=== PATIENT | male | born 1940 | race Caucasian/White ===

== ENCOUNTER 2016-10-20 21:21 | Emergency (ER) | payer MEDICARE, BC ==
--- NOTE | 2016-10-20 21:45 | EDM.PDOC ---
ED HPI GENERAL MEDICAL PROBLEM - General Chief Complaint: Abdominal Pain Stated Complaint: abd pain Time Seen by Provider: 10/20/16 21:30 Source of Information: Reports: Patient, Family, RN, RN Notes Reviewed History Limitations: Reports: No Limitations - History of Present Illness INITIAL COMMENTS - FREE TEXT/NARRATIVE: Patient presents the emergency room at [facility] with concerns of a worsening periumbilical hernia. According to the patient the hernia has been present for many many years. The patient states that the hernia is becoming more painful. The patient complains of nausea and vomiting. The patient states that he is not able to pass any gas. The patient has not had any trouble with bowel movements. No blood in BMs. The patient states his abdomen feels more distended. The patient has not had any fevers or chills. Duration: Colic, Waxing/Waning Location: Reports: Abdomen Quality: Reports: Pressure Severity: Mild Improves with: Reports: Rest Worsens with: Reports: Movement - Related Data Allergies Allergy/AdvReac Type Severity Reaction Status Date / Time No Known Allergies Allergy Verified 10/20/16 21:36 Home Meds: Home Meds Insulin Glarg,Human.Rec.Analog [Lantus] 47 units SQ BEDTIME 10/20/16 [History] Lisinopril/Hydrochlorothiazide [Zestoretic 10-12.5 mg Tablet] 1 each PO DAILY [History] Potassium Chloride [Klor-Con M20] 20 meq PO DAILY 10/20/16 [History] Tamsulosin HCl [Flomax] 0.4 mg PO BEDTIME 10/20/16 [History] amLODIPine [Norvasc] 5 mg PO DAILY 10/20/16 [History] atorvaSTATin [Lipitor] 1 tab PO BEDTIME 10/20/16 [History] glipiZIDE [Glipizide] 1 tab PO DAILY 10/20/16 [History] ED ROS GENERAL - Review of Systems Review Of Systems: See Below Constitutional: Denies: Fever, Chills, Weakness Respiratory: Denies: Shortness of Breath, Cough Cardiovascular: Denies: Chest Pain, Palpitations GI/Abdominal: Reports: Abdominal Pain, Nausea, Vomiting. Denies: Bloody Stool, Diarrhea, Flatus Skin: Reports: No Symptoms Neurological: Reports: No Symptoms ED EXAM, GI/ABD - Physical Exam Exam: See Below Exam Limited By: No Limitations General Appearance: Alert, No Apparent Distress, Obese Respiratory/Chest: No Respiratory Distress, Lungs Clear, Normal Breath Sounds Cardiovascular: Regular Rate, Rhythm GI/Abdominal Exam: Distended, Tender, Abnormal Bowel Sounds (Hypoactive), Hernia (Periumbilical) Neurological: Alert, Oriented Skin Exam: Warm, Dry, Intact, Normal Color, No Rash Course - Vital Signs Last Recorded V/S: Last Vital Signs Temp 37.1 C 10/20/16 23:32 Pulse 101 H 10/20/16 23:32 Resp 20 10/20/16 23:32 BP 155/81 H 10/20/16 23:32 Pulse Ox 94 L 10/20/16 23:32 - Orders/Labs/Meds Orders: Active Orders 24 hr Category Date Time Status Abdomen Pelvis w Cont [CT] Stat Exams 10/20/16 22:06 Taken Sodium Chloride 0.9% [Saline Flush] Med 10/20/16 22:06 Active 10 ml FLUSH ASDIRECTED PRN Peripheral IV Insertion Adult [OM.PC] Routine Oth 10/20/16 22:06 Ordered Medication Orders Sodium Chloride (Saline Flush) 10 ml FLUSH ASDIRECTED PRN PRN Reason: Keep Vein Open Labs: Laboratory Tests 10/20/16 10/20/16 10/20/16 Range/Units 21:51 21:51 21:57 WBC 12.8 H (4.0-10.0) x10^3/uL RBC 4.61 (4.5-6.0) x10^6/uL Hgb 13.0 L (14.0-18.0) g/dL Hct 40.0 (40.0-52.0) % MCV 86.8 (78.0-93.0) fL MCH 28.2 (26.0-32.0) pg MCHC 32.5 (32.0-36.0) g/dL RDW Coeff of Sylvia 14.2 (10.0-15.0) % Plt Count 319 (130-400) x10^3/uL Neut % (Auto) 89.6 H (50.0-80.0) % Lymph % (Auto) 5.2 L (25.0-50.0) % Bartholomew % (Auto) 5.1 (2.0-11.0) % Eos % (Auto) 0.0 (0.0-4.0) % Baso % (Auto) 0.1 L (0.2-1.2) % Sodium 144 (136-145) mmol/L Potassium 3.6 (3.5-5.1) mmol/L Chloride 106 (98-107) mmol/L Carbon Dioxide 30 (21-32) mmol/L BUN 21 H (7-18) mg/dL Creatinine 1.4 H (0.70-1.30) mg/dL Est Cr Clr Drug Dosing 44.11 mL/min Estimated GFR (MDRD) 49 Glucose 205 H (74-106) mg/dL Calcium 8.6 (8.5-10.1) mg/dL Corrected Calcium 9.64 (8.5-10.1) mg/dL Total Bilirubin 0.7 (0.2-1.0) mg/dL AST 12 L (15-37) U/L ALT 13 L (16-63) U/L Alkaline Phosphatase 93 (46-116) U/L Total Protein 7.4 (6.4-8.2) g/dL Albumin 2.7 L (3.4-5.0) g/dL Globulin 4.7 Albumin/Globulin Ratio 0.57 Urine Color Yellow (YELLOW) Urine Appearance Cloudy H (CLEAR) Urine pH 5.5 (5.0-8.0) Ur Specific [place] 1.025 Urine Protein 100 H (NEGATIVE) mg/dL Urine Glucose (UA) Negative (NEGATIVE) mg/dL Urine Ketones 15 H (NEGATIVE) mg/dL Urine Occult Blood Small H (NEGATIVE) Urine Nitrite Negative (NEGATIVE) Urine Bilirubin Small H (NEGATIVE) Urine Urobilinogen 0.2 (0.2) EU/dL Ur Leukocyte Esterase Moderate H (NEGATIVE) Urine RBC 5-10 H (NOT SEEN) /HPF Urine WBC 20-30 H (NOT SEEN) /HPF Ur Squamous Epith Cells Moderate H (NEGATIVE) /HPF Urine Bacteria Many H (NEGATIVE) /HPF Urine Mucus Many H (NEGATIVE) /LPF Meds: Medications Generic Name Dose Route Start Last Admin Trade Name Freq PRN Reason Stop Dose Admin Sodium Chloride 10 ml 10/20/16 22:06 Saline Flush FLUSH ASDIRECTED PRN Keep Vein Open Discontinued Medications Generic Name Dose Route Start Last Admin Trade Name Freq PRN Reason Stop Dose Admin Sodium Chloride 1,000 mls @ 999 mls/hr 10/20/16 22:08 10/20/16 22:09 Normal Saline IV 10/20/16 23:08 999 mls/hr ONETIME ONE Administration Metoclopramide HCl 10 mg 10/20/16 22:07 10/20/16 22:23 Reglan IVPUSH 10/20/16 22:08 10 mg ONETIME ONE Administration Ondansetron HCl 4 mg 10/20/16 22:07 10/20/16 22:25 Zofran IVPUSH 10/20/16 22:08 4 mg ONETIME ONE Administration - Radiology Interpretation Free Text/Narrative:: CT Abd/Pelvis: Ventral abdominal wall hernia containing a loop of small bowel. This appears to be causing proximal small bowel obstruction with a dilated loop extending into the hernia and a decompressed loop leading the hernia See scanned report in EMR CT Results Date: 10/20/16 CT Results Time: 23:23 Departure - Departure Time of Disposition: 23:58 Disposition: DC/Tfer to Acute Hospital 02 Condition: Good Clinical Impression: Ventral hernia with bowel obstruction, Kidney stone on right side Urinary tract infection Qualifiers: Urinary tract infection type: acute cystitis Hematuria presence: with hematuria Qualified Code(s): N30.01 - Acute cystitis with hematuria - Discharge Information Forms: Interfacility Transfer [facility] ED Communication - ED Communication Date/Time Date: 10/20/16 Time Called: 22:30 - Discussed Case With (1) Discussed Case With (1): Admitting Provider (Dr. Perez, Surgery [facility]) - Conversation Summary Admitting Provider Agreed to Patient's Admission: Yes Patient Aware of Amendments fo Care Plan: Yes Summary Comment: Patient will be transferred to [facility] ER in [place]. Dr. Perez is the accepting provider. Report given. Questions answered. Patient will be transferred via ALS ground. - Problem List Review Problem List Initiated/Reviewed/Updated: Yes - My Orders Last 24 Hours: My Active Orders 10/20/16 22:06 Abdomen Pelvis w Cont [CT] Stat Sodium Chloride 0.9% [Saline Flush] 10 ml FLUSH ASDIRECTED PRN Peripheral IV Insertion Adult [OM.PC] Routine - Assessment/Plan Last 24 Hours: My Active Orders 10/20/16 22:06 Abdomen Pelvis w Cont [CT] Stat Sodium Chloride 0.9% [Saline Flush] 10 ml FLUSH ASDIRECTED PRN Peripheral IV Insertion Adult [OM.PC] Routine
[2016-10-20] MEDS ORDERED: Sodium Chloride 0.9% 10 ML Syringe FLUSH PRN (22:06)
[2016-10-20] MEDS ORDERED: Ondansetron 4 MG/2 ML SDV IVPUSH ONE (22:07)
[2016-10-20] MEDS ORDERED: Metoclopramide 10 MG/2 ML SDV IVPUSH ONE (22:07)
[2016-10-20] MEDS ORDERED: Sodium Chloride 0.9% 1,000 ML IV ONE (22:08)
[2016-10-20 23:33] VITALS: BP 155/81
[2016-10-20] MEDS ORDERED: Ciprofloxacin in D5W 400 MG in Premix Bag 1 BAG IV ONE ×2 (23:55)
== END 2016-10-21 00:19 | disposition short-term general hospital (02) ==
LOC: VM.ED 21:21
DX: K43.6 Other and unspecified ventral hernia with obstruction, without gangrene (principal); N20.0 Calculus of kidney; N30.01 Acute cystitis with hematuria; Z79.84 Long term (current) use of oral hypoglycemic drugs; Z79.4 Long term (current) use of insulin
CPT/HCPCS: 36415; 74177; 80053; 81001; 85025; 96361; 96365; 96375; 99284; 99285; J0744; J2405; J2765; J7030

== ENCOUNTER 2017-08-06 15:36 | Emergency (ER) | payer MEDICARE, BC ==
[2017-08-06] MEDS ORDERED: Sodium Chloride 0.9% 10 ML Syringe FLUSH PRN (15:49)
[2017-08-06 16:45] LABS: CHLORIDE,CL 102 mmol/L (98-107); SODIUM,NA 139 mmol/L (136-145)
[2017-08-06 16:58] VITALS: BP 138/80
[2017-08-06] MEDS ORDERED: Potassium Chloride 10% 20 MEQ/15 ML Soln 15 ML UD Cup PO ONE (17:42)
--- NOTE | 2017-08-06 17:48 | EDM.PDOC ---
ED HPI GENERAL MEDICAL PROBLEM - General Chief Complaint: General Time Seen by Provider: 08/06/17 15:40 Source of Information: Reports: Patient History Limitations: Reports: No Limitations - History of Present Illness INITIAL COMMENTS - FREE TEXT/NARRATIVE: Pt. presents to ER with a history of syncope. He states that he passed out on saturday. He is currently being treated for a UTI. He states that he was having fever and chills on saturday prior to the syncopal episode. He states that he also has some anterior chest pain that is worse with deep breathing and movement. He states that he feels fatigued and somewhat lightheaded. Denies any shortness of breath. No abdominal pain, nausea, or vomiting. Location: Reports: Chest Quality: Reports: Ache, Burning - Related Data Allergies Allergy/AdvReac Type Severity Reaction Status Date / Time No Known Allergies Allergy Verified 08/06/17 16:47 Home Meds: Home Meds Insulin Glarg,Human.Rec.Analog [Lantus] 47 units SQ BEDTIME 10/20/16 [History] Lisinopril/Hydrochlorothiazide [Zestoretic 10-12.5 mg Tablet] 1 each PO DAILY [History] Potassium Chloride [Klor-Con M20] 20 meq PO DAILY 10/20/16 [History] Tamsulosin HCl [Flomax] 0.4 mg PO BEDTIME 10/20/16 [History] amLODIPine [Norvasc] 5 mg PO DAILY 10/20/16 [History] atorvaSTATin [Lipitor] 1 tab PO BEDTIME 10/20/16 [History] glipiZIDE [Glipizide] 1 tab PO DAILY 10/20/16 [History] Past Medical History Cardiovascular History: Reports: High Cholesterol, Hypertension Gastrointestinal History: Reports: Other (See Below) Other Gastrointestinal History: Umbilical hernia Genitourinary History: Reports: BPH, Other (See Below) Other Genitourinary History: urosepsis Neurological History: Reports: Neuropathy, Diabetic Endocrine/Metabolic History: Reports: Diabetes, Type II, Obesity/BMI 30+ Oncologic (Cancer) History: Reports: Prostate Social & Family History - Tobacco Use Smoking Status *Q: Never Smoker - Recreational Drug Use Recreational Drug Use: No Drug Use in Last 12 Months: No ED ROS GENERAL - Review of Systems Review Of Systems: See Below Constitutional: Reports: No Symptoms, Weakness HEENT: Reports: No Symptoms Respiratory: Reports: No Symptoms Cardiovascular: Reports: Chest Pain, Syncope Endocrine: Reports: No Symptoms GI/Abdominal: Reports: No Symptoms : Reports: No Symptoms Musculoskeletal: Reports: No Symptoms Skin: Reports: No Symptoms Neurological: Reports: No Symptoms Psychiatric: Reports: No Symptoms Hematologic/Lymphatic: Reports: No Symptoms Immunologic: Reports: No Symptoms ED EXAM, GENERAL - Physical Exam Exam: See Below Exam Limited By: No Limitations General Appearance: Alert, WD/WN, No Apparent Distress Eye Exam: Bilateral Eye: EOMI, Normal Fundi, Normal Inspection, PERRL Ears: Normal External Exam, Normal Canal, Hearing Grossly Normal, Normal TMs Nose: Normal Inspection, Normal Mucosa, No Blood Throat/Mouth: Normal Inspection, Normal Lips, Normal Teeth, Normal Gums, Normal Oropharynx, Normal Voice, No Airway Compromise Head: Atraumatic, Normocephalic Neck: Normal Inspection, Supple, Non-Tender, Full Range of Motion Respiratory/Chest: No Respiratory Distress, Lungs Clear, Normal Breath Sounds, No Accessory Muscle Use, Chest Non-Tender Cardiovascular: Normal Peripheral Pulses, Regular Rate, Rhythm, No Edema, No Gallop, No JVD, No Murmur, No Rub GI/Abdominal: Normal Bowel Sounds, Soft, Non-Tender, No Organomegaly, No Distention, No Abnormal Bruit, No Mass Back Exam: Normal Inspection, Full Range of Motion, NT Extremities: Normal Inspection, Normal Range of Motion, Non-Tender, Normal Capillary Refill, No Pedal Edema Neurological: Alert, Oriented, CN II-XII Intact, Normal Cognition, Normal Gait, Normal Reflexes, No Motor/Sensory Deficits EKG INTERPRETATION Rhythm: NSR (inferior and lateral ST changes, non-specific.) Course - Vital Signs Last Recorded V/S: Last Vital Signs Temp 37.4 C 08/06/17 15:40 Pulse 120 H 08/06/17 15:40 Resp 20 08/06/17 15:40 BP 138/80 08/06/17 15:40 Pulse Ox 95 08/06/17 15:40 - Orders/Labs/Meds Orders: Active Orders 24 hr Category Date Time Status EKG Documentation Completion [RC] STAT Care 08/06/17 15:50 Active Chest 2V [CR] Stat Exams 08/06/17 15:56 Taken CULTURE BLOOD [BC] Stat Lab 08/06/17 16:25 Received CULTURE BLOOD [BC] Stat Lab 08/06/17 16:30 Received Sodium Chloride 0.9% [Saline Flush] Med 08/06/17 15:49 Active 10 ml FLUSH ASDIRECTED PRN Blood Culture x2 Reflex Set [OM.PC] Stat Oth 08/06/17 15:55 Ordered Peripheral IV Insertion Adult [OM.PC] Routine Oth 08/06/17 15:50 Ordered Medication Orders Sodium Chloride (Saline Flush) 10 ml FLUSH ASDIRECTED PRN PRN Reason: Keep Vein Open Labs: Laboratory Tests 08/06/17 08/06/17 08/06/17 Range/Units 16:04 16:04 16:04 WBC 11.5 H (4.0-10.0) x10^3/uL RBC 4.43 L (4.5-6.0) x10^6/uL Hgb 12.1 L (14.0-18.0) g/dL Hct 37.6 L (40.0-52.0) % MCV 84.9 (78.0-93.0) fL MCH 27.3 (26.0-32.0) pg MCHC 32.2 (32.0-36.0) g/dL RDW Coeff of Sylvia 14.7 (10.0-15.0) % Plt Count 432 H D (130-400) x10^3/uL Neut % (Auto) 88.6 H (50.0-80.0) % Lymph % (Auto) 5.1 L (25.0-50.0) % [place] % (Auto) 6.0 (2.0-11.0) % Eos % (Auto) 0.2 (0.0-4.0) % Baso % (Auto) 0.1 L (0.2-1.2) % PT 14.2 H (9.6-11.4) SEC INR 1.4 L (2.0-3.5) Sodium 139 (136-145) mmol/L Potassium 2.6 L* (3.5-5.1) mmol/L Chloride 102 (98-107) mmol/L Carbon Dioxide 25 (21-32) mmol/L Anion Gap 14.6 (10-20) mmol/L BUN 42 H (7-18) mg/dL Creatinine 1.9 H (0.70-1.30) mg/dL Est Cr Clr Drug Dosing TNP Estimated GFR (MDRD) 35 Glucose 239 H (74-106) mg/dL Lactic Acid (0.4-2.0) mmol/L Calcium 8.4 L (8.5-10.1) mg/dL Corrected Calcium 9.92 (8.5-10.1) mg/dL Phosphorus 2.1 L (2.6-4.7) mg/dL Magnesium 2.4 (1.8-2.4) mg/dL Total Bilirubin 0.4 (0.2-1.0) mg/dL AST 36 (15-37) U/L ALT 33 (16-63) U/L Alkaline Phosphatase 108 (46-116) U/L Troponin I < 0.017 (<=0.056) ng/mL C-Reactive Protein 16.5 H (<=0.9) mg/dL Total Protein 7.3 (6.4-8.2) g/dL Albumin 2.1 L (3.4-5.0) g/dL Globulin 5.2 Albumin/Globulin Ratio 0.40 06/05/18 Range/Units 16:04 WBC (4.0-10.0) x10^3/uL RBC (4.5-6.0) x10^6/uL Hgb (14.0-18.0) g/dL Hct (40.0-52.0) % MCV (78.0-93.0) fL MCH (26.0-32.0) pg MCHC (32.0-36.0) g/dL RDW Coeff of Sylvia (10.0-15.0) % Plt Count (130-400) x10^3/uL Neut % (Auto) (50.0-80.0) % Lymph % (Auto) (25.0-50.0) % [place] % (Auto) (2.0-11.0) % Eos % (Auto) (0.0-4.0) % Baso % (Auto) (0.2-1.2) % PT (9.6-11.4) SEC INR (2.0-3.5) Sodium (136-145) mmol/L Potassium (3.5-5.1) mmol/L Chloride (98-107) mmol/L Carbon Dioxide (21-32) mmol/L Anion Gap (10-20) mmol/L BUN (7-18) mg/dL Creatinine (0.70-1.30) mg/dL Est Cr Clr Drug Dosing Estimated GFR (MDRD) Glucose (74-106) mg/dL Lactic Acid 1.7 (0.4-2.0) mmol/L Calcium (8.5-10.1) mg/dL Corrected Calcium (8.5-10.1) mg/dL Phosphorus (2.6-4.7) mg/dL Magnesium (1.8-2.4) mg/dL Total Bilirubin (0.2-1.0) mg/dL AST (15-37) U/L ALT (16-63) U/L Alkaline Phosphatase (46-116) U/L Troponin I (<=0.056) ng/mL C-Reactive Protein (<=0.9) mg/dL Total Protein (6.4-8.2) g/dL Albumin (3.4-5.0) g/dL Globulin Albumin/Globulin Ratio Meds: Medications Generic Name Dose Route Start Last Admin Trade Name Freq PRN Reason Stop Dose Admin Sodium Chloride 10 ml 08/06/17 15:49 Saline Flush FLUSH ASDIRECTED PRN Keep Vein Open Discontinued Medications Generic Name Dose Route Start Last Admin Trade Name Freq PRN Reason Stop Dose Admin Potassium Chloride 20 meq 08/06/17 17:42 Potassium Chloride Solution PO 08/06/17 17:43 ONETIME ONE - Radiology Interpretation Free Text/Narrative:: CXR negative Departure - Departure Time of Disposition: 17:49 Disposition: Home, Self-Care 01 Clinical Impression: Hypokalemia, Dehydration, Abnormal EKG - Discharge Information Instructions: Hypokalemia, Dehydration, Adult, [id number], Syncope Referrals: Dev Chacon PA-C [Primary Care Provider] - Forms: ED Department Discharge Additional Instructions: You've been advised to stay in the hospital, as you have numerous abnormal findings, including a critically low potassium and EKG changes. If you decide to stay or return, you are welcome. Just come to the ER or call 911. Take your potassium like you are supposed to. It is very low. This can be life- threatening. Follow-up in clinic in 7-10 days. - My Orders Last 24 Hours: My Active Orders 08/06/17 15:49 Sodium Chloride 0.9% [Saline Flush] 10 ml FLUSH ASDIRECTED PRN 08/06/17 15:50 EKG Documentation Completion [RC] STAT Peripheral IV Insertion Adult [OM.PC] Routine 08/06/17 15:55 Blood Culture x2 Reflex Set [OM.PC] Stat 08/06/17 15:56 Chest 2V [CR] Stat 08/06/17 16:25 CULTURE BLOOD [BC] Stat 08/06/17 16:30 CULTURE BLOOD [BC] Stat - Assessment/Plan Last 24 Hours: My Active Orders 08/06/17 15:49 Sodium Chloride 0.9% [Saline Flush] 10 ml FLUSH ASDIRECTED PRN 08/06/17 15:50 EKG Documentation Completion [RC] STAT Peripheral IV Insertion Adult [OM.PC] Routine 08/06/17 15:55 Blood Culture x2 Reflex Set [OM.PC] Stat 08/06/17 15:56 Chest 2V [CR] Stat 08/06/17 16:25 CULTURE BLOOD [BC] Stat 08/06/17 16:30 CULTURE BLOOD [BC] Stat
== END 2017-08-06 18:00 | disposition home or self-care (01) ==
LOC: VM.ED 15:36
DX: E87.6 Hypokalemia (principal); E86.0 Dehydration; R94.31 Abnormal electrocardiogram [ECG] [EKG]; E11.9 Type 2 diabetes mellitus without complications; E66.9 Obesity, unspecified; I10 Essential (primary) hypertension; Z79.899 Other long term (current) drug therapy
CPT/HCPCS: 36415; 71046; 80053; 83605; 83735; 84100; 84484; 85025; 85610; 86140; 87040; 87077; 93005; 99284-GF; 99285; A9270-GY

== ENCOUNTER 2018-03-05 13:57 | Inpatient (IN) | payer BC, MEDICARE ==
--- NOTE | 2018-03-05 15:06 | PCM.HP ---
H&P History of Present Illness - General Date of Service: 03/05/18 Admit Problem/Dx: Admission Diagnosis/Problem Admission Diagnosis/Problem Abscess of scrotum Source of Information: Patient History Limitations: Reports: No Limitations - History of Present Illness Initial Comments - Free Text/Narative: Mr. Banda is a 77 yo male who returns to swing bed after an admission in [place] for treatment of a scrotal abscess. He had been on swing bed in [place] for many months (please see notes from that stay for details). End of last week, he developed redness and swelling of the left side of his scrotum. The options were discussed and he opted for transfer to [place] for further evaluation. He underwent I&D and was treated with antibiotics. He subsequently improved and it was felt he was medically stable for dismissal. Case management worked with he and his family on options, and he elected to return to [facility] swing bed for further cares. Upon arrival to the floor, he denies any concerns. He is not having any pain. He denies any fever or chills. His appetite is not great but he has had no nausea or vomiting. His stay in [place] was otherwise uneventful. - Related Data Allergies/Adverse Reactions: Allergies Allergy/AdvReac Type Severity Reaction Status Date / Time No Known Allergies Allergy Verified 03/05/18 14:58 Home Medications: Home Meds Delmi Meehan-Db/K Ph,MB-DB [Phos-NaK Powder] 1 pack PO TID 11/26/17 [History] Sennosides/Docusate Sodium [Senna-Docusate Sodium Tablet] 1 tab PO QID PRN 11/26 [History] Sertraline [Zoloft] 25 mg PO DAILY 11/26/17 [History] Aspirin 81 mg PO WITHBREAKFAST tab.chew 02/28/18 [Rx] Nystatin [Nystatin Crm] 0 gm TOP BID PRN tube 02/28/18 [Rx] Simethicone 80 mg PO TID tab.chew 02/28/18 [Rx] Acetaminophen [Tylenol Extra Strength] 500 mg PO Q6H PRN 03/05/18 [History] Amoxicillin/Potassium Clav [Augmentin 875-125 Tablet] 1 tab PO BID 03/05/18 [ History] Enoxaparin [Lovenox] 40 mg SUBCUT DAILY 03/05/18 [History] Oxybutynin 5 mg PO TID PRN 03/05/18 [History] oxyCODONE 5 mg PO Q4H PRN 03/05/18 [History] Past Medical History HEENT History: Reports: Hard of Hearing Cardiovascular History: Reports: High Cholesterol, Hypertension Respiratory History: Reports: None Gastrointestinal History: Reports: Other (See Below) Other Gastrointestinal History: Umbilical hernia. pseudomembranous colitis Genitourinary History: Reports: BPH, Diabetic Nephropathy, Other (See Below) Other Genitourinary History: urosepsis. neoplasm of prostate Musculoskeletal History: Reports: None Neurological History: Reports: CVA, Neuropathy, Diabetic Psychiatric History: Reports: Depression Endocrine/Metabolic History: Reports: Diabetes, Type II, Obesity/BMI 30+ Hematologic History: Reports: None Immunologic History: Reports: None Oncologic (Cancer) History: Reports: Colon, Prostate Dermatologic History: Reports: None - Infectious Disease History Infectious Disease History: Reports: None - Past Surgical History GI Surgical History: Reports: Colonoscopy, Colostomy, Hernia Repair/Other, Other (See Below) Other GI Surgeries/Procedures: rectal procedure Male Surgical History: Reports: Other (See Below) Other Male Surgeries/Procedures: cystoscopy with direct vision urethrotomy. laparotomy. prostate surgery Social & Family History - Family History Endocrine/Metabolic: Reports: Diabetes, type II Oncologic: Reports: Prostate - Tobacco Use Smoking Status *Q: Never Smoker - Caffeine Use Caffeine Use: Reports: Soda - Alcohol Use Alcohol Use in Last Twelve Months: No - Recreational Drug Use Recreational Drug Use: No - Living Situation & Occupation Living situation: Reports: , with Significant Other Occupation: Retired ([employer]) H&P Review of Systems - Review of Systems: Review Of Systems: See Below General: Reports: No Symptoms HEENT: Reports: No Symptoms Pulmonary: Reports: No Symptoms Cardiovascular: Reports: No Symptoms Gastrointestinal: Reports: No Symptoms Genitourinary: Reports: No Symptoms Musculoskeletal: Reports: No Symptoms Skin: Reports: No Symptoms Psychiatric: Reports: No Symptoms Neurological: Reports: No Symptoms Exam - Exam Exam: See Below - Vital Signs Vital Signs: Last Vital Signs Temp 36.3 C 03/05/18 14:06 Pulse 92 03/05/18 14:06 Resp 18 03/05/18 14:06 BP 144/90 H 03/05/18 14:06 Pulse Ox 98 03/05/18 14:06 - Exam General: Alert, Oriented, Cooperative HEENT: Conjunctiva Clear, Mucosa Moist & [place], Posterior Pharynx Clear, Pupils Equal, Pupils Reactive Neck: Supple, Trachea Midline Lungs: Clear to Auscultation, Normal Respiratory Effort Cardiovascular: Regular Rate, Regular Rhythm, Normal S1, Normal S2 GI/Abdominal Exam: Normal Bowel Sounds, Soft, Non-Tender, No Organomegaly, No Distention, No Mass Extremities: Non-Tender, No Pedal Edema, Normal Capillary Refill Peripheral Pulses: 2+: Radial (L), Radial (R) Skin: Warm, Dry, Intact *Q Meaningful Use (ADM) - VTE *Q VTE Anticoagulation Contraindications: Med/TX Not Indicated/Need - Problem List (1) Abscess of scrotum SNOMED Code(s): 60931908 ICD Code: N49.2 - INFLAMMATORY DISORDERS OF SCROTUM Status: Acute Current Visit: No (2) Wound, open, scrotum or testes SNOMED Code(s): 795794131 ICD Code: S31.30XA - UNSPECIFIED OPEN WOUND OF SCROTUM AND TESTES, INIT ENCNTR Status: Acute Current Visit: No (3) Bladder spasm Status: Acute Current Visit: No (4) Colon cancer SNOMED Code(s): 642526653 ICD Code: C18.9 - MALIGNANT NEOPLASM OF COLON, UNSPECIFIED Status: Acute Current Visit: No Qualifiers: Colon location: unspecified part of colon Qualified Code(s): C18.9 - Malignant neoplasm of colon, unspecified (5) Fistula SNOMED Code(s): 415149131 ICD Code: L98.8 - OTH DISRD OF THE SKIN AND SUBCUTANEOUS TISSUE Status: Acute Current Visit: No (6) Depressed mood SNOMED Code(s): 499768471 ICD Code: F32.9 - MAJOR DEPRESSIVE DISORDER, SINGLE EPISODE, UNSPECIFIED Status: Chronic Current Visit: No (7) Cerebrovascular accident (CVA) SNOMED Code(s): 641898657 ICD Code: I63.9 - CEREBRAL INFARCTION, UNSPECIFIED Status: Chronic Current Visit: No Qualifiers: CVA mechanism: unspecified Qualified Code(s): I63.9 - Cerebral infarction, unspecified (8) Diabetes SNOMED Code(s): 79348812 ICD Code: E11.9 - TYPE 2 DIABETES MELLITUS WITHOUT COMPLICATIONS Status: Chronic Current Visit: No Qualifiers: Diabetes mellitus type: type 2 Diabetes mellitus long term care pharmacist insulin use: without residential use Diabetes mellitus complication status: with neurologic complications Diabetes mellitus complication detail: with polyneuropathy Qualified Code(s): E11.42 - Type 2 diabetes mellitus with diabetic polyneuropathy (9) Hyperlipidemia SNOMED Code(s): 29048015 ICD Code: E78.5 - HYPERLIPIDEMIA, UNSPECIFIED Status: Chronic Current Visit: No Qualifiers: Hyperlipidemia type: unspecified Qualified Code(s): E78.5 - Hyperlipidemia , unspecified (10) Hypertension SNOMED Code(s): 69960976 ICD Code: I10 - ESSENTIAL (PRIMARY) HYPERTENSION Status: Chronic Current Visit: No Qualifiers: Hypertension type: essential hypertension Qualified Code(s): I10 - Essential (primary) hypertension Problem List Initiated/Reviewed/Updated: Yes Orders Last 24hrs: Active Orders 24 hr Category Date Time Status Patient Status [ADT] Routine ADT 03/05/18 14:48 Ordered Notify Provider Vital Signs [RC] ASDIRECTED Care 03/05/18 14:50 Ordered Oxygen Therapy [RC] PRN Care 03/05/18 14:48 Ordered Up With Assistance [RC] ASDIRECTED Care 03/05/18 14:48 Ordered VTE/DVT Education [RC] PER UNIT ROUTINE Care 03/05/18 14:48 Ordered Vital Signs [RC] PER UNIT ROUTINE Care 03/05/18 14:48 Ordered Regular Diet [DIET] Diet 03/05/18 Dinner Ordered CULTURE MRSA SURVEY [RM] Routine Lab 03/05/18 14:05 Ordered Anticoagulation Contraindications VTE [AST] Per Unit Oth 03/05/18 14:48 Ordered Routine Resuscitation Status Routine Resus Stat 03/05/18 14:48 Ordered Assessment/Plan Comment:: 77 yo male who returns to swing bed for wound cares after a hospitalization in [place] for I&D of a recurrent scrotal abscess. #1 Scrotal Abscess #2 Wound of Scrotum - Wound cares BID. - He will complete the course of augmentin after another 12 days. #3 Bladder Spasm - Continue oxybutynin PRN. #4 Colon Cancer #5 Fistula - Although he has been back and forth at times, overall he has declined to do any treatments for his cancer. - He is welcome to see colorectal surgery if he desires once this infection has cleared up. #6 Depression - Overall stable. - Continue sertraline. #7 CVA #8 Diabetes #9 Hypertension #10 Hyperlipidemia - Continue ASA. - All other medications discontinued once he transitioned to a palliative care approach. Vitals and labs have been stable. No changes to his medications. He will be admitted to [facility] bed - ideally he would return home for end of life but this is not currently feasible with the wound cares he is requiring. Will continue to monitor over time. Resume all medications he was on prior to going to [place] and will add Augmentin for 12 days per discharge paperwork. He is DNR/ DNI - discussed on admission. Continue lovenox for VTE prophylaxis as per orders from [place] - will reassess in 2 weeks.
[2018-03-05] MEDS ORDERED: oxyCODONE 5 MG Tab PO PRN (16:55)
[2018-03-05] MEDS ORDERED: Nystatin Crm 30 GM Tube TOP PRN (16:55)
[2018-03-05] MEDS ORDERED: Oxybutynin 5 MG Tab PO PRN (16:55)
[2018-03-05] MEDS: Acetaminophen 500 MG Tab PO PRN (19:14)
[2018-03-05] MEDS ORDERED: Enoxaparin 40 MG/0.4 ML Syringe SUBCUT SCH (20:00)
[2018-03-05] MEDS: Simethicone 80 MG Tab.Chew PO SCH (20:03)
[2018-03-05] MEDS: Amoxicillin/Clavulanate K 875-125 MG Tab PO SCH (20:03)
[2018-03-05] MEDS: Potassium Phosphate,Mb-Db/Sodium Phosphate,Mb-Db Packet PO SCH (20:03)
[2018-03-06] MEDS ORDERED: Aspirin 81 MG Tab.Chew PO SCH (08:00)
[2018-03-06] MEDS ORDERED: Enoxaparin 40 MG/0.4 ML Syringe SUBCUT SCH (08:00)
[2018-03-06] MEDS: Amoxicillin/Clavulanate K 875-125 MG Tab PO SCH ×2 (08:54→19:29)
[2018-03-06] MEDS: Sertraline 25 MG Tab PO SCH (08:54)
[2018-03-06] MEDS: Simethicone 80 MG Tab.Chew PO SCH ×3 (08:54→19:30)
[2018-03-06] MEDS: Potassium Phosphate,Mb-Db/Sodium Phosphate,Mb-Db Packet PO SCH ×3 (08:54→19:29)
[2018-03-06] MEDS: Acetaminophen 500 MG Tab PO PRN (19:29)
[2018-03-06] MEDS: Enoxaparin 40 MG/0.4 ML Syringe SUBCUT SCH (19:30)
[2018-03-07] MEDS: Simethicone 80 MG Tab.Chew PO SCH ×3 (08:25→20:04)
[2018-03-07] MEDS: Sertraline 25 MG Tab PO SCH (08:25)
[2018-03-07] MEDS: Potassium Phosphate,Mb-Db/Sodium Phosphate,Mb-Db Packet PO SCH ×3 (08:25→20:04)
[2018-03-07] MEDS: Amoxicillin/Clavulanate K 875-125 MG Tab PO SCH ×2 (08:25→20:04)
[2018-03-07] MEDS: Aspirin 81 MG Tab.EC PO SCH (08:25)
[2018-03-07] MEDS: Acetaminophen 500 MG Tab PO PRN (20:04)
[2018-03-07] MEDS: Enoxaparin 40 MG/0.4 ML Syringe SUBCUT SCH (20:05)
[2018-03-08] MEDS: Potassium Phosphate,Mb-Db/Sodium Phosphate,Mb-Db Packet PO SCH ×3 (09:15→21:01)
[2018-03-08] MEDS: Sertraline 25 MG Tab PO SCH (09:16)
[2018-03-08] MEDS: Amoxicillin/Clavulanate K 875-125 MG Tab PO SCH ×2 (09:16→21:01)
[2018-03-08] MEDS: Aspirin 81 MG Tab.EC PO SCH (09:16)
[2018-03-08] MEDS: Simethicone 80 MG Tab.Chew PO SCH ×3 (09:16→21:01)
[2018-03-08] MEDS: Enoxaparin 40 MG/0.4 ML Syringe SUBCUT SCH (21:00)
[2018-03-08] MEDS: Acetaminophen 500 MG Tab PO PRN (21:01)
[2018-03-09] MEDS: Aspirin 81 MG Tab.EC PO SCH (09:26)
[2018-03-09] MEDS: Amoxicillin/Clavulanate K 875-125 MG Tab PO SCH ×2 (09:26→19:25)
[2018-03-09] MEDS: Sertraline 25 MG Tab PO SCH (09:26)
[2018-03-09] MEDS: Potassium Phosphate,Mb-Db/Sodium Phosphate,Mb-Db Packet PO SCH ×3 (09:26→19:25)
[2018-03-09] MEDS: Simethicone 80 MG Tab.Chew PO SCH ×3 (09:26→19:25)
[2018-03-09] MEDS: Acetaminophen 500 MG Tab PO PRN (19:24)
[2018-03-09] MEDS: Enoxaparin 40 MG/0.4 ML Syringe SUBCUT SCH (19:25)
[2018-03-10] MEDS: Potassium Phosphate,Mb-Db/Sodium Phosphate,Mb-Db Packet PO SCH ×3 (08:03→20:11)
[2018-03-10] MEDS: Simethicone 80 MG Tab.Chew PO SCH ×3 (08:03→20:11)
[2018-03-10] MEDS: Aspirin 81 MG Tab.EC PO SCH (08:03)
[2018-03-10] MEDS: Sertraline 25 MG Tab PO SCH (08:03)
[2018-03-10] MEDS: Amoxicillin/Clavulanate K 875-125 MG Tab PO SCH ×2 (08:03→20:11)
--- NOTE | 2018-03-10 12:17 | PCM.SN ---
- Free Text/Narrative Note: Asked by nursing to look at scrotal wound due to increase in swelling and redness over the weekend. Erythema is very faint; does have some swelling in the left scrotum but no induration or obvious fluctuance. Patient remains on antibiotics. Will continue current cares and monitor closely.
[2018-03-10] MEDS: Enoxaparin 40 MG/0.4 ML Syringe SUBCUT SCH (20:12)
[2018-03-11] MEDS: Simethicone 80 MG Tab.Chew PO SCH ×3 (08:42→20:30)
[2018-03-11] MEDS: Sertraline 25 MG Tab PO SCH (08:42)
[2018-03-11] MEDS: Potassium Phosphate,Mb-Db/Sodium Phosphate,Mb-Db Packet PO SCH ×3 (08:42→20:30)
[2018-03-11] MEDS: Amoxicillin/Clavulanate K 875-125 MG Tab PO SCH (08:42)
[2018-03-11] MEDS: Aspirin 81 MG Tab.EC PO SCH (08:42)
[2018-03-11] MEDS: CLAVULANATE PO SCH (20:15)
[2018-03-11] MEDS: AMOXICILLIN PO SCH (20:15)
[2018-03-11] MEDS: ENOXAPARIN 40 MG/0.4 ML SUBCUT SCH (20:17)
[2018-03-12] MEDS: Aspirin 81 MG Tab.EC PO SCH (10:14)
[2018-03-12] MEDS: SERTRALINE 25 MG PO SCH (10:14)
[2018-03-12] MEDS: Simethicone 80 MG Tab.Chew PO SCH ×3 (10:14→21:23)
[2018-03-12] MEDS: Potassium Phosphate,Mb-Db/Sodium Phosphate,Mb-Db Packet PO SCH ×3 (10:14→21:23)
[2018-03-12] MEDS: CLAVULANATE PO SCH ×2 (10:15→21:24)
[2018-03-12] MEDS: AMOXICILLIN PO SCH ×2 (10:15→21:24)
[2018-03-12] MEDS: ENOXAPARIN 40 MG/0.4 ML SUBCUT SCH (21:23)
[2018-03-13] MEDS: Potassium Phosphate,Mb-Db/Sodium Phosphate,Mb-Db Packet PO SCH ×3 (09:45→20:13)
[2018-03-13] MEDS: Simethicone 80 MG Tab.Chew PO SCH ×3 (09:45→20:13)
[2018-03-13] MEDS: Aspirin 81 MG Tab.EC PO SCH (09:45)
[2018-03-13] MEDS: SERTRALINE 25 MG PO SCH (09:46)
[2018-03-13] MEDS: CLAVULANATE PO SCH ×2 (09:46→20:15)
[2018-03-13] MEDS: AMOXICILLIN PO SCH ×2 (09:46→20:15)
[2018-03-13] MEDS: ENOXAPARIN 40 MG/0.4 ML SUBCUT SCH (20:14)
[2018-03-14] MEDS: Simethicone 80 MG Tab.Chew PO SCH ×3 (08:29→20:19)
[2018-03-14] MEDS: Aspirin 81 MG Tab.EC PO SCH (08:29)
[2018-03-14] MEDS: Potassium Phosphate,Mb-Db/Sodium Phosphate,Mb-Db Packet PO SCH ×3 (08:29→20:19)
[2018-03-14] MEDS: SERTRALINE 25 MG PO SCH (08:30)
[2018-03-14] MEDS: CLAVULANATE PO SCH ×2 (08:30→20:17)
[2018-03-14] MEDS: AMOXICILLIN PO SCH ×2 (08:30→20:17)
[2018-03-14] MEDS: ENOXAPARIN 40 MG/0.4 ML SUBCUT SCH (20:19)
[2018-03-15] MEDS: Simethicone 80 MG Tab.Chew PO SCH ×3 (08:30→20:23)
[2018-03-15] MEDS: Aspirin 81 MG Tab.EC PO SCH (08:30)
[2018-03-15] MEDS: Potassium Phosphate,Mb-Db/Sodium Phosphate,Mb-Db Packet PO SCH ×3 (08:30→20:23)
[2018-03-15] MEDS: CLAVULANATE PO SCH ×2 (08:31→20:22)
[2018-03-15] MEDS: AMOXICILLIN PO SCH ×2 (08:31→20:22)
[2018-03-15] MEDS: SERTRALINE 25 MG PO SCH (08:31)
[2018-03-15] MEDS: ENOXAPARIN 40 MG/0.4 ML SUBCUT SCH (20:22)
[2018-03-15] MEDS: Acetaminophen 500 MG Tab PO PRN (20:23)
[2018-03-16] MEDS: Potassium Phosphate,Mb-Db/Sodium Phosphate,Mb-Db Packet PO SCH ×3 (09:20→20:06)
[2018-03-16] MEDS: AMOXICILLIN PO SCH ×2 (09:20→20:05)
[2018-03-16] MEDS: CLAVULANATE PO SCH ×2 (09:20→20:05)
[2018-03-16] MEDS: Simethicone 80 MG Tab.Chew PO SCH ×3 (09:21→20:06)
[2018-03-16] MEDS: SERTRALINE 25 MG PO SCH (09:21)
[2018-03-16] MEDS: Aspirin 81 MG Tab.EC PO SCH (09:21)
[2018-03-16] MEDS: Acetaminophen 500 MG Tab PO PRN (20:06)
[2018-03-16] MEDS: ENOXAPARIN 40 MG/0.4 ML SUBCUT SCH (20:07)
[2018-03-17] MEDS: Potassium Phosphate,Mb-Db/Sodium Phosphate,Mb-Db Packet PO SCH ×3 (08:43→20:00)
[2018-03-17] MEDS: SERTRALINE 25 MG PO SCH (08:43)
[2018-03-17] MEDS: Aspirin 81 MG Tab.EC PO SCH (08:43)
[2018-03-17] MEDS: Acetaminophen 500 MG Tab PO PRN (08:43)
[2018-03-17] MEDS: Simethicone 80 MG Tab.Chew PO SCH ×3 (08:43→19:59)
[2018-03-17] MEDS: ENOXAPARIN 40 MG/0.4 ML SUBCUT SCH (19:59)
[2018-03-18] MEDS: Acetaminophen 500 MG Tab PO PRN (08:22)
[2018-03-18] MEDS: Aspirin 81 MG Tab.EC PO SCH (08:22)
[2018-03-18] MEDS: Potassium Phosphate,Mb-Db/Sodium Phosphate,Mb-Db Packet PO SCH ×3 (08:22→19:59)
[2018-03-18] MEDS: Simethicone 80 MG Tab.Chew PO SCH ×3 (08:22→19:59)
[2018-03-18] MEDS: SERTRALINE 25 MG PO SCH (08:29)
[2018-03-18] MEDS: ENOXAPARIN 40 MG/0.4 ML SUBCUT SCH (19:59)
[2018-03-19] MEDS: Simethicone 80 MG Tab.Chew PO SCH ×3 (08:27→20:23)
[2018-03-19] MEDS: Potassium Phosphate,Mb-Db/Sodium Phosphate,Mb-Db Packet PO SCH ×3 (08:27→20:23)
[2018-03-19] MEDS: SERTRALINE 25 MG PO SCH (08:27)
[2018-03-19] MEDS: Aspirin 81 MG Tab.EC PO SCH (08:27)
[2018-03-19] MEDS: Acetaminophen 500 MG Tab PO PRN (20:23)
[2018-03-19] MEDS: ENOXAPARIN 40 MG/0.4 ML SUBCUT SCH (21:54)
[2018-03-20] MEDS: Aspirin 81 MG Tab.EC PO SCH (09:43)
[2018-03-20] MEDS: SERTRALINE 25 MG PO SCH (09:43)
[2018-03-20] MEDS: Potassium Phosphate,Mb-Db/Sodium Phosphate,Mb-Db Packet PO SCH ×3 (09:43→19:47)
[2018-03-20] MEDS: Simethicone 80 MG Tab.Chew PO SCH ×3 (09:44→19:47)
[2018-03-21] MEDS: Aspirin 81 MG Tab.EC PO SCH (11:12)
[2018-03-21] MEDS: Simethicone 80 MG Tab.Chew PO SCH ×3 (11:12→20:19)
[2018-03-21] MEDS: Potassium Phosphate,Mb-Db/Sodium Phosphate,Mb-Db Packet PO SCH ×3 (11:12→20:19)
[2018-03-21] MEDS: SERTRALINE 25 MG PO SCH (11:13)
[2018-03-21] MEDS: Acetaminophen 500 MG Tab PO PRN (20:18)
[2018-03-22] MEDS: Simethicone 80 MG Tab.Chew PO SCH ×4 (11:09→19:49)
[2018-03-22] MEDS: Potassium Phosphate,Mb-Db/Sodium Phosphate,Mb-Db Packet PO SCH ×4 (11:09→19:49)
[2018-03-22] MEDS: Aspirin 81 MG Tab.EC PO SCH (11:09)
[2018-03-22] MEDS: SERTRALINE 25 MG PO SCH (11:13)
[2018-03-22] MEDS: Acetaminophen 500 MG Tab PO PRN (19:49)
[2018-03-23] MEDS: Aspirin 81 MG Tab.EC PO SCH (09:43)
[2018-03-23] MEDS: SERTRALINE 25 MG PO SCH (09:43)
[2018-03-23] MEDS: Simethicone 80 MG Tab.Chew PO SCH ×3 (09:43→19:22)
[2018-03-23] MEDS: Acetaminophen 500 MG Tab PO PRN ×2 (09:44→19:22)
[2018-03-23] MEDS: Potassium Phosphate,Mb-Db/Sodium Phosphate,Mb-Db Packet PO SCH ×3 (09:44→19:22)
[2018-03-24] MEDS: Simethicone 80 MG Tab.Chew PO SCH ×3 (09:13→20:19)
[2018-03-24] MEDS: SERTRALINE 25 MG PO SCH (09:13)
[2018-03-24] MEDS: Potassium Phosphate,Mb-Db/Sodium Phosphate,Mb-Db Packet PO SCH ×3 (09:13→20:19)
[2018-03-24] MEDS: Aspirin 81 MG Tab.EC PO SCH (09:13)
[2018-03-24] MEDS: Ondansetron 4 MG Tab.DIS PO PRN (15:36)
--- NOTE | 2018-03-24 17:07 | PCM.SN ---
- Free Text/Narrative Note: Patient's approached nursing wondering about doing labwork on patient today. He has been more weak and confused the past 3-4 days. Urine is also dark in color. She wonders about the possibility of sepsis. Patient has also been vomiting today but has had no abdominal pain. No fever. Patient has repeatedly stated that he did not want to do labwork anymore but rather would just start antibiotics if evidence of an infection. He states this is the way he still feels now. Suspect symptoms are more likely related to progression of his malignancy rather than any infection in the absence of fever and the fact that his scrotal wounds are improving. Recommend holding off on anything further tonight - will reassess in the am and go from there.
--- NOTE | 2018-03-25 09:13 | PCM.SN ---
- Free Text/Narrative Note: With dressing change last night, a pocket did open up and drain more purulent material. Patient otherwise had an uneventful night. Nursing reports that he acts much more alert and interactive when his family is not present. Will increased drainage last night and weakness over the past few days, will do 5 days of cefdinir to cover for any developing infection.
[2018-03-25] MEDS: Potassium Phosphate,Mb-Db/Sodium Phosphate,Mb-Db Packet PO SCH ×3 (09:19→20:16)
[2018-03-25] MEDS: Aspirin 81 MG Tab.EC PO SCH (09:19)
[2018-03-25] MEDS: Simethicone 80 MG Tab.Chew PO SCH ×3 (09:19→20:16)
[2018-03-25] MEDS: SERTRALINE 25 MG PO SCH (09:19)
[2018-03-26] MEDS: Aspirin 81 MG Tab.EC PO SCH (09:53)
[2018-03-26] MEDS: Potassium Phosphate,Mb-Db/Sodium Phosphate,Mb-Db Packet PO SCH ×3 (09:53→19:29)
[2018-03-26] MEDS: Simethicone 80 MG Tab.Chew PO SCH ×3 (09:53→19:30)
[2018-03-26] MEDS: SERTRALINE 25 MG PO SCH (09:54)
[2018-03-26] MEDS: CEFDINIR PO SCH (19:30)
[2018-03-27] MEDS: CEFDINIR PO SCH ×2 (10:28→19:51)
[2018-03-27] MEDS: Aspirin 81 MG Tab.EC PO SCH (10:28)
[2018-03-27] MEDS: SERTRALINE 25 MG PO SCH (10:28)
[2018-03-27] MEDS: Potassium Phosphate,Mb-Db/Sodium Phosphate,Mb-Db Packet PO SCH ×3 (10:29→19:50)
[2018-03-27] MEDS: Simethicone 80 MG Tab.Chew PO SCH ×3 (10:29→20:24)
--- NOTE | 2018-03-27 12:40 | PCM.SN ---
- Free Text/Narrative Note: Contacted by nursing due to increased redness and swelling of the right side of patient's scrotum that is worse than yesterday. There is some mild erythema there but no significant fluctuance or edema compared to previous. He has not had a fever. Discussed that I do not think this is to the point of needing I&D again; therefore, I do not feel he requires transfer to [place] at this time. He voices understanding. Discussed that I am out of the office tomorrow but that I would see if the missionary coordinator provider would be willing to take a look. If this is worsening, we could certainly consider transfer back to [place] again for I&D. He expresses frustration again about his current situation. He desires to return home and wonders why "they cannot just fix what they did" referring to the persistent wound from his initial I&D. We discussed the rationale for the initial I&D in terms of that he would have likely very quickly a few months ago if this was not done. Discussed that when these are performed, we cannot suture them back together but rather have to let this heal secondarily. Discussed with him that really the only intervention at this point would be to do a surgical consult in regard to his cancer. He has declined this repeatedly in the past and again voices that he is not interested in that. We again reviewed that infections are inevitable with the fistulas and open wounds that he has. It is much more likely he will from an infection than from the cancer itself. I highly doubt at this point that his wounds will heal before he dies. Thus, to return home would likely be under the circumstances of sub- optimal wound care on hospice with likelihood he would pass away fairly quickly. The questions of the patient and his were answered to the best of my ability. No change in care plan at this time.
[2018-03-28] MEDS: SERTRALINE 25 MG PO SCH (09:39)
[2018-03-28] MEDS: Aspirin 81 MG Tab.EC PO SCH (09:40)
[2018-03-28] MEDS: Potassium Phosphate,Mb-Db/Sodium Phosphate,Mb-Db Packet PO SCH ×3 (09:40→19:15)
[2018-03-28] MEDS: Simethicone 80 MG Tab.Chew PO SCH ×3 (09:40→19:15)
[2018-03-28] MEDS: CEFDINIR PO SCH ×2 (09:40→21:10)
[2018-03-28] MEDS: Acetaminophen 500 MG Tab PO PRN (19:15)
[2018-03-29] MEDS: Potassium Phosphate,Mb-Db/Sodium Phosphate,Mb-Db Packet PO SCH ×3 (09:09→19:51)
[2018-03-29] MEDS: SERTRALINE 25 MG PO SCH (09:09)
[2018-03-29] MEDS: Simethicone 80 MG Tab.Chew PO SCH ×3 (09:09→19:52)
[2018-03-29] MEDS: Aspirin 81 MG Tab.EC PO SCH (09:09)
[2018-03-29] MEDS: CEFDINIR PO SCH ×2 (09:10→19:52)
[2018-03-29] MEDS: Acetaminophen 500 MG Tab PO PRN (19:53)
[2018-03-30] MEDS: SERTRALINE 25 MG PO SCH (10:24)
[2018-03-30] MEDS: Aspirin 81 MG Tab.EC PO SCH (10:24)
[2018-03-30] MEDS: Potassium Phosphate,Mb-Db/Sodium Phosphate,Mb-Db Packet PO SCH ×3 (10:24→22:31)
[2018-03-30] MEDS: Simethicone 80 MG Tab.Chew PO SCH ×3 (10:25→22:32)
[2018-03-30] MEDS: CEFDINIR PO SCH (22:36)
[2018-03-30] MEDS: Acetaminophen 500 MG Tab PO PRN (22:36)
[2018-03-31] MEDS: Potassium Phosphate,Mb-Db/Sodium Phosphate,Mb-Db Packet PO SCH ×3 (09:20→20:06)
[2018-03-31] MEDS: Simethicone 80 MG Tab.Chew PO SCH ×3 (09:20→20:02)
[2018-03-31] MEDS: Acetaminophen 500 MG Tab PO PRN (09:20)
[2018-03-31] MEDS: Aspirin 81 MG Tab.EC PO SCH (09:20)
[2018-03-31] MEDS: SERTRALINE 25 MG PO SCH (09:21)
[2018-04-01] MEDS: SERTRALINE 25 MG PO SCH (10:45)
[2018-04-01] MEDS: Simethicone 80 MG Tab.Chew PO SCH ×3 (10:46→20:13)
[2018-04-01] MEDS: Potassium Phosphate,Mb-Db/Sodium Phosphate,Mb-Db Packet PO SCH ×3 (10:46→20:13)
[2018-04-01] MEDS: Acetaminophen 500 MG Tab PO PRN (10:46)
[2018-04-01] MEDS: Aspirin 81 MG Tab.EC PO SCH (10:46)
[2018-04-02] MEDS: Simethicone 80 MG Tab.Chew PO SCH ×3 (09:22→20:04)
[2018-04-02] MEDS: Aspirin 81 MG Tab.EC PO SCH (09:22)
[2018-04-02] MEDS: SERTRALINE 25 MG PO SCH (09:22)
[2018-04-02] MEDS: Potassium Phosphate,Mb-Db/Sodium Phosphate,Mb-Db Packet PO SCH ×3 (09:22→20:04)
[2018-04-03] MEDS: Potassium Phosphate,Mb-Db/Sodium Phosphate,Mb-Db Packet PO SCH ×3 (09:17→19:55)
[2018-04-03] MEDS: SERTRALINE 25 MG PO SCH (09:17)
[2018-04-03] MEDS: Simethicone 80 MG Tab.Chew PO SCH ×3 (09:17→19:55)
[2018-04-03] MEDS: Aspirin 81 MG Tab.EC PO SCH (09:17)
--- NOTE | 2018-04-03 09:55 | PCM.PN ---
- General Info Date of Service: 04/03/18 Subjective Update: 77 yo male seen today for swing bed progress. He is admitted to swing bed for wound cares and ongoing PT. He reports that his strength has been better the past 2 days despite having had a rough week last week. No fever. He denies any pain in his scrotum apart from when he is having wound cares. His appetite and mood are better these past couple of days as well. He denies any questions or concerns. - Review of Systems General: Reports: No Symptoms HEENT: Reports: No Symptoms Pulmonary: Reports: No Symptoms Cardiovascular: Reports: No Symptoms Gastrointestinal: Reports: No Symptoms Genitourinary: Reports: No Symptoms Musculoskeletal: Reports: No Symptoms Skin: Reports: No Symptoms Neurological: Reports: No Symptoms Psychiatric: Reports: No Symptoms - Patient Data Vitals - Most Recent: Last Vital Signs Temp 36.7 C 04/03/18 05:43 Pulse 69 04/03/18 05:43 Resp 20 04/03/18 05:43 BP 160/81 H 04/03/18 05:43 Pulse Ox 94 L 04/03/18 05:43 Weight - Most Recent: 83.461 kg I&O - Last 24 Hours: Intake & Output 04/02/18 04/03/18 04/03/18 22:59 06:59 14:59 Intake Total 220 600 Output Total 225 450 Balance -5 150 Med Orders - Current: Current Medications Acetaminophen (Tylenol Extra Strength) 500 mg PO Q6H PRN PRN Reason: Pain/Fever Last Admin: 04/01/18 10:46 Dose: 500 mg Aspirin (Halfprin) 81 mg PO WITHBREAKFAST [facility] Last Admin: 04/03/18 09:17 Dose: 81 mg Sertraline 25mg (Own (Supply)) 0 mg PO DAILY [facility] Last Admin: 04/03/18 09:17 Dose: 25 mg Ondansetron HCl (Zofran Odt) 4 mg PO Q8H PRN PRN Reason: Nausea/Vomiting Last Admin: 03/24/18 15:36 Dose: 4 mg Potassium Phos/Sodium Phos (Phos-Nak Powder) 1 each PO TID [facility] Last Admin: 04/03/18 09:17 Dose: 1 each Senna/Docusate Sodium (Senna Plus) 1 tab PO QID PRN PRN Reason: Constipation Simethicone (Simethicone) 80 mg PO TID [facility] Last Admin: 04/03/18 09:17 Dose: 80 mg Discontinued Medications Amoxicillin/Clavulanate Potassium (Augmentin 875 Mg/125 Mg) 1 tab PO BID [facility] Stop: 03/16/18 20:01 Last Admin: 03/11/18 08:42 Dose: 1 tab Aspirin (Aspirin) 81 mg PO WITHBREAKFAST [facility] Last Admin: 03/06/18 08:54 Dose: 81 mg Cefdinir (Omnicef) 300 mg PO BID [facility] Stop: 03/29/18 20:01 Last Admin: 03/26/18 09:53 Dose: 300 mg Enoxaparin Sodium (Lovenox) 40 mg SUBCUT DAILY [facility] Enoxaparin Sodium (Lovenox) 40 mg SUBCUT 2000 [facility] Last Admin: 03/05/18 20:26 Dose: 40 mg Enoxaparin Sodium (Lovenox) 40 mg SUBCUT BEDTIME [facility] Last Admin: 03/10/18 20:12 Dose: 40 mg Amoxicillin/Clavulanate 875/125mg (Own Supply) 0 mg PO BID [facility] Stop: 03/16/18 20:01 Last Admin: 03/16/18 20:05 Dose: 875 mg Enoxaparin. 40mg/0. (4ml (Own Supply)) 0 mg SUBCUT BEDTIME [facility] Last Admin: 03/19/18 21:54 Dose: 40 mg Cefdinir.300mg (Own (Supply)) 0 mg PO BID [facility] Stop: 03/29/18 20:01 Last Admin: 03/30/18 22:36 Dose: 300 mg Nystatin (Nystatin Crm) 1 gm TOP BID PRN PRN Reason: Rash Oxybutynin Chloride (Oxybutynin) 5 mg PO TID PRN PRN Reason: bladder spasm Oxycodone HCl (Oxycodone) 5 mg PO Q4H PRN PRN Reason: Pain Sertraline HCl (Zoloft) 25 mg PO DAILY [facility] Last Admin: 03/11/18 08:42 Dose: 25 mg - Exam General: Alert, Oriented, Cooperative, No Acute Distress HEENT: Mucous Membr. Moist/[place] Neck: Supple, Trachea Midline, No Thyromegaly. No: Lymphadenopathy, Thyromegaly Lungs: Clear to Auscultation, Normal Respiratory Effort Cardiovascular: Regular Rate, Regular Rhythm, No Murmurs GI/Abdominal Exam: Normal Bowel Sounds, Soft, Non-Tender, No Organomegaly, No Distention, No Mass (Male) Exam: Other (scrotum without any erythema today; swelling is stable; no significant tenderness to palpation) Extremities: Non-Tender, No Pedal Edema, Normal Capillary Refill Peripheral Pulses: 2+: Radial (L), Radial (R) Skin: Warm, Dry, Intact Neurological: No New Focal Deficit - Problem List & Annotations (1) Abscess of scrotum SNOMED Code(s): 58504975 Code(s): N49.2 - INFLAMMATORY DISORDERS OF SCROTUM Status: Acute Current Visit: No (2) Wound, open, scrotum or testes SNOMED Code(s): 792896653 Code(s): S31.30XA - UNSPECIFIED OPEN WOUND OF SCROTUM AND TESTES, INIT ENCNTR Status: Acute Current Visit: No (3) Bladder spasm Status: Acute Current Visit: No (4) Colon cancer SNOMED Code(s): 923230350 Code(s): C18.9 - MALIGNANT NEOPLASM OF COLON, UNSPECIFIED Status: Acute Current Visit: No Qualifiers: Colon location: unspecified part of colon Qualified Code(s): C18.9 - Malignant neoplasm of colon, unspecified (5) Fistula SNOMED Code(s): 421493431 Code(s): L98.8 - OTH DISRD OF THE SKIN AND SUBCUTANEOUS TISSUE Status: Acute Current Visit: No (6) Depressed mood SNOMED Code(s): 466496494 Code(s): F32.9 - MAJOR DEPRESSIVE DISORDER, SINGLE EPISODE, UNSPECIFIED Status: Chronic Current Visit: No (7) Cerebrovascular accident (CVA) SNOMED Code(s): 631596679 Code(s): I63.9 - CEREBRAL INFARCTION, UNSPECIFIED Status: Chronic Current Visit: No Qualifiers: CVA mechanism: unspecified Qualified Code(s): I63.9 - Cerebral infarction, unspecified (8) Diabetes SNOMED Code(s): 09167705 Code(s): E11.9 - TYPE 2 DIABETES MELLITUS WITHOUT COMPLICATIONS Status: Chronic Current Visit: No Qualifiers: Diabetes mellitus type: type 2 Diabetes mellitus prison insulin use: without prison use Diabetes mellitus complication status: with neurologic complications Diabetes mellitus complication detail: with polyneuropathy Qualified Code(s): E11.42 - Type 2 diabetes mellitus with diabetic polyneuropathy (9) Hyperlipidemia SNOMED Code(s): 18843861 Code(s): E78.5 - HYPERLIPIDEMIA, UNSPECIFIED Status: Chronic Current Visit: No Qualifiers: Hyperlipidemia type: unspecified Qualified Code(s): E78.5 - Hyperlipidemia , unspecified (10) Hypertension SNOMED Code(s): 60042571 Code(s): I10 - ESSENTIAL (PRIMARY) HYPERTENSION Status: Chronic Current Visit: No Qualifiers: Hypertension type: essential hypertension Qualified Code(s): I10 - Essential (primary) hypertension - Problem List Review Problem List Initiated/Reviewed/Updated: Yes - My Orders Last 24 Hours: My Active Orders 04/27/18 08:00 Communication Order [RC] ONETIME - Assessment Assessment:: 77 yo male on swing bed for wound cares and PT. Strength and status of the wound continue to fluctuate but he is better over the past 2-3 days. - Plan Plan:: 77 yo male who returns to swing bed for wound cares after a hospitalization in [place] for I&D of a recurrent scrotal abscess. #1 Scrotal Abscess #2 Wound of Scrotum - Wound cares BID. - He recently completed another course of antibiotics. - Will continue to monitor for signs of infection. #3 Bladder Spasm - No longer needing oxybutynin after last suprapubic catheter change. #4 Colon Cancer #5 Fistula - Although he has been back and forth at times, overall he has declined to do any treatments for his cancer. - He is welcome to see colorectal surgery if he desires. - Social work is working on arranging a care conference for this patient. #6 Depression - Overall stable. - Continue sertraline. #7 CVA #8 Diabetes #9 Hypertension #10 Hyperlipidemia - Continue ASA. - All other medications discontinued once he transitioned to a palliative care approach. Vitals and labs have been stable. No changes to his medications. He will remain on swing bed for now - care conference being arranged by adult protective caseworker. Continue current medications without any changes. He is DNR/DNI - discussed on admission. No longer on lovenox for VTE prophylaxis given current goals of care.
[2018-04-04] MEDS: Aspirin 81 MG Tab.EC PO SCH (09:30)
[2018-04-04] MEDS: Simethicone 80 MG Tab.Chew PO SCH ×3 (09:30→20:55)
[2018-04-04] MEDS: Potassium Phosphate,Mb-Db/Sodium Phosphate,Mb-Db Packet PO SCH ×3 (09:31→20:55)
[2018-04-04] MEDS: SERTRALINE 25 MG PO SCH (09:31)
[2018-04-05] MEDS: Simethicone 80 MG Tab.Chew PO SCH ×3 (09:11→20:04)
[2018-04-05] MEDS: Potassium Phosphate,Mb-Db/Sodium Phosphate,Mb-Db Packet PO SCH ×3 (09:11→20:04)
[2018-04-05] MEDS: Aspirin 81 MG Tab.EC PO SCH (09:12)
[2018-04-05] MEDS: SERTRALINE 25 MG PO SCH (09:12)
[2018-04-06] MEDS: SERTRALINE 25 MG PO SCH (09:25)
[2018-04-06] MEDS: Aspirin 81 MG Tab.EC PO SCH (09:26)
[2018-04-06] MEDS: Simethicone 80 MG Tab.Chew PO SCH ×3 (09:26→20:35)
[2018-04-06] MEDS: Potassium Phosphate,Mb-Db/Sodium Phosphate,Mb-Db Packet PO SCH ×3 (09:26→20:35)
[2018-04-07] MEDS: SERTRALINE 25 MG PO SCH (08:41)
[2018-04-07] MEDS: Potassium Phosphate,Mb-Db/Sodium Phosphate,Mb-Db Packet PO SCH ×3 (08:42→20:33)
[2018-04-07] MEDS: Aspirin 81 MG Tab.EC PO SCH (08:42)
[2018-04-07] MEDS: Simethicone 80 MG Tab.Chew PO SCH ×3 (08:42→20:33)
[2018-04-08] MEDS: Simethicone 80 MG Tab.Chew PO SCH ×3 (09:52→19:56)
[2018-04-08] MEDS: SERTRALINE 25 MG PO SCH (09:52)
[2018-04-08] MEDS: Potassium Phosphate,Mb-Db/Sodium Phosphate,Mb-Db Packet PO SCH ×3 (09:52→19:55)
[2018-04-08] MEDS: Aspirin 81 MG Tab.EC PO SCH (09:52)
--- NOTE | 2018-04-08 11:54 | PCM.SN ---
- Free Text/Narrative Note: Contacted by nursing due to increased induration and pain in the scrotum over the past 24 hours. Drainage has also increased and appears more purulent. On exam, he has slight erythema but definitely more tenderness and induration than previous. Will do a 5 day course of augmentin. Working to get a care conference organized for Saturday. Encouraged patient to write his questions down.
[2018-04-08] MEDS: AMOXICILLIN PO SCH ×2 (16:47→19:55)
[2018-04-08] MEDS: [UNRECOGNIZED DRUG - OTHER] PO SCH ×2 (16:47→19:55)
--- NOTE | 2018-04-08 18:45 | PCM.SN ---
- Free Text/Narrative Note: Care conference held with patient and family as well as nursing and bilingual case manager. Reviewed patient's diagnosis and course until this point. Reviewed previous conversations about pursuing hospice, conversations about treatment considerations, and planning for future cares. Reviewed options of revisiting treatment for his cancer (seeing a surgeon in [place]), continuing with supportive cares (mainly antibiotics for infections), or pursuing more comfort cares (backing off on wound cares, holding off on further antibiotics, considering transfer home). After these discussions, he would like to continue with supportive cares in terms of treating infections that arise but not pursuing any treatments for the cancer. Patient seems upset with his situation and is frustrated about the different parties involved. He does not feel he has been allowed to make his decisions but was reminded repeatedly that he has been allowed to make decisions all along and that his family has been supportive of these decisions. He did voice that he recalled this is how it has gone as well. He denied any specific concerns regarding his wishes being honored.
[2018-04-09] MEDS: Simethicone 80 MG Tab.Chew PO SCH ×3 (09:01→20:09)
[2018-04-09] MEDS: Aspirin 81 MG Tab.EC PO SCH (09:01)
[2018-04-09] MEDS: Potassium Phosphate,Mb-Db/Sodium Phosphate,Mb-Db Packet PO SCH ×3 (09:01→20:08)
[2018-04-09] MEDS: [UNRECOGNIZED DRUG - OTHER] PO SCH ×2 (09:02→20:08)
[2018-04-09] MEDS: AMOXICILLIN PO SCH ×2 (09:02→20:08)
[2018-04-09] MEDS: SERTRALINE 25 MG PO SCH (09:02)
[2018-04-10] MEDS: Potassium Phosphate,Mb-Db/Sodium Phosphate,Mb-Db Packet PO SCH ×3 (09:04→20:45)
[2018-04-10] MEDS: Aspirin 81 MG Tab.EC PO SCH (09:05)
[2018-04-10] MEDS: SERTRALINE 25 MG PO SCH (09:05)
[2018-04-10] MEDS: AMOXICILLIN PO SCH ×2 (09:05→20:45)
[2018-04-10] MEDS: Simethicone 80 MG Tab.Chew PO SCH ×3 (09:05→20:45)
[2018-04-10] MEDS: [UNRECOGNIZED DRUG - OTHER] PO SCH ×2 (09:05→20:45)
[2018-04-11] MEDS: Potassium Phosphate,Mb-Db/Sodium Phosphate,Mb-Db Packet PO SCH ×3 (09:21→20:25)
[2018-04-11] MEDS: Simethicone 80 MG Tab.Chew PO SCH ×3 (09:21→20:25)
[2018-04-11] MEDS: SERTRALINE 25 MG PO SCH (09:21)
[2018-04-11] MEDS: Aspirin 81 MG Tab.EC PO SCH (09:21)
[2018-04-11] MEDS: [UNRECOGNIZED DRUG - OTHER] PO SCH ×2 (09:22→20:25)
[2018-04-11] MEDS: AMOXICILLIN PO SCH ×2 (09:22→20:25)
[2018-04-12] MEDS: Aspirin 81 MG Tab.EC PO SCH (10:23)
[2018-04-12] MEDS: Potassium Phosphate,Mb-Db/Sodium Phosphate,Mb-Db Packet PO SCH ×3 (10:23→21:00)
[2018-04-12] MEDS: AMOXICILLIN PO SCH ×2 (10:23→21:00)
[2018-04-12] MEDS: [UNRECOGNIZED DRUG - OTHER] PO SCH ×2 (10:23→21:00)
[2018-04-12] MEDS: Simethicone 80 MG Tab.Chew PO SCH ×3 (10:23→21:00)
[2018-04-12] MEDS: SERTRALINE 25 MG PO SCH (10:24)
[2018-04-13] MEDS: Potassium Phosphate,Mb-Db/Sodium Phosphate,Mb-Db Packet PO SCH ×3 (08:41→19:32)
[2018-04-13] MEDS: Simethicone 80 MG Tab.Chew PO SCH ×3 (08:41→19:32)
[2018-04-13] MEDS: Aspirin 81 MG Tab.EC PO SCH (08:41)
[2018-04-13] MEDS: SERTRALINE 25 MG PO SCH (08:41)
[2018-04-14] MEDS: Potassium Phosphate,Mb-Db/Sodium Phosphate,Mb-Db Packet PO SCH ×3 (08:12→20:12)
[2018-04-14] MEDS: SERTRALINE 25 MG PO SCH (08:12)
[2018-04-14] MEDS: Aspirin 81 MG Tab.EC PO SCH (08:13)
[2018-04-14] MEDS: Simethicone 80 MG Tab.Chew PO SCH ×3 (08:13→20:12)
[2018-04-15] MEDS: Aspirin 81 MG Tab.EC PO SCH (08:42)
[2018-04-15] MEDS: Simethicone 80 MG Tab.Chew PO SCH ×3 (08:42→20:17)
[2018-04-15] MEDS: SERTRALINE 25 MG PO SCH (08:42)
[2018-04-15] MEDS: Potassium Phosphate,Mb-Db/Sodium Phosphate,Mb-Db Packet PO SCH ×3 (08:42→20:17)
[2018-04-16] MEDS: Potassium Phosphate,Mb-Db/Sodium Phosphate,Mb-Db Packet PO SCH ×3 (08:30→21:00)
[2018-04-16] MEDS: SERTRALINE 25 MG PO SCH (08:31)
[2018-04-16] MEDS: Aspirin 81 MG Tab.EC PO SCH (08:31)
[2018-04-16] MEDS: Simethicone 80 MG Tab.Chew PO SCH ×3 (08:31→21:00)
[2018-04-17] MEDS: Simethicone 80 MG Tab.Chew PO SCH ×3 (08:20→19:13)
[2018-04-17] MEDS: Potassium Phosphate,Mb-Db/Sodium Phosphate,Mb-Db Packet PO SCH ×3 (08:20→19:13)
[2018-04-17] MEDS: Aspirin 81 MG Tab.EC PO SCH (08:20)
[2018-04-17] MEDS: SERTRALINE 25 MG PO SCH (08:20)
[2018-04-18] MEDS: Acetaminophen 500 MG Tab PO PRN (02:40)
--- NOTE | 2018-04-18 08:41 | PCM.SN ---
- Free Text/Narrative Note: Patient complaining of right ear pain x 24 hours. Also has decreased hearing and a crackling sound. Ear canal is edematous with yellowish debris. Will treat for otitis externa with ofloxacin. Rx sent through [facility] to assist with getting this given he is on self pay swing bed.
[2018-04-18] MEDS: Potassium Phosphate,Mb-Db/Sodium Phosphate,Mb-Db Packet PO SCH ×3 (09:40→20:51)
[2018-04-18] MEDS: SERTRALINE 25 MG PO SCH (09:41)
[2018-04-18] MEDS: Aspirin 81 MG Tab.EC PO SCH (09:41)
[2018-04-18] MEDS: Simethicone 80 MG Tab.Chew PO SCH ×3 (09:41→20:51)
[2018-04-18] MEDS: OFLOXACIN 0.3% EARRT SCH ×2 (12:33→20:51)
[2018-04-19] MEDS: Simethicone 80 MG Tab.Chew PO SCH ×3 (08:16→20:23)
[2018-04-19] MEDS: Aspirin 81 MG Tab.EC PO SCH (08:16)
[2018-04-19] MEDS: OFLOXACIN 0.3% EARRT SCH ×2 (08:16→20:48)
[2018-04-19] MEDS: Potassium Phosphate,Mb-Db/Sodium Phosphate,Mb-Db Packet PO SCH ×3 (08:16→20:23)
[2018-04-19] MEDS: SERTRALINE 25 MG PO SCH (08:17)
--- NOTE | 2018-04-19 11:38 | PCM.SN ---
- Free Text/Narrative Note: Called to the patients room by ILDA Oconnell for further assessment of the patient scrotum. Nursing states they have noticed increase foul drainage, swelling, and new loculated areas of the lower scrotum extending into the perineal area. The patient was recently on abx therapy, which he completed on the 12 of April. Nursing states the patient scrotal symptoms have progressively gotten worse since the abx was completed. Will restart the patient on Augmentin BID for the next 10 days. Continue with same wound cares. Nursing to report any negative changes. Will continue to monitor.
[2018-04-19] MEDS: Amoxicillin/Clavulanate K 875-125 MG Tab PO SCH ×2 (12:25→20:23)
[2018-04-20] MEDS: Acetaminophen 500 MG Tab PO PRN ×2 (04:03→20:09)
[2018-04-20] MEDS: Potassium Phosphate,Mb-Db/Sodium Phosphate,Mb-Db Packet PO SCH ×3 (09:13→20:10)
[2018-04-20] MEDS: Simethicone 80 MG Tab.Chew PO SCH ×3 (09:13→20:10)
[2018-04-20] MEDS: Amoxicillin/Clavulanate K 875-125 MG Tab PO SCH ×2 (09:13→20:10)
[2018-04-20] MEDS: Aspirin 81 MG Tab.EC PO SCH (09:13)
[2018-04-20] MEDS: SERTRALINE 25 MG PO SCH (09:14)
[2018-04-20] MEDS: OFLOXACIN 0.3% EARRT SCH ×2 (09:14→20:10)
[2018-04-20] MEDS: Ondansetron 4 MG Tab.DIS PO PRN (20:09)
[2018-04-21] MEDS: Potassium Phosphate,Mb-Db/Sodium Phosphate,Mb-Db Packet PO SCH ×3 (10:24→20:33)
[2018-04-21] MEDS: SERTRALINE 25 MG PO SCH (10:25)
[2018-04-21] MEDS: OFLOXACIN 0.3% EARRT SCH ×2 (10:29→20:33)
[2018-04-21] MEDS: Amoxicillin/Clavulanate K 875-125 MG Tab PO SCH ×2 (10:32→20:35)
[2018-04-21] MEDS: Aspirin 81 MG Tab.EC PO SCH (10:38)
[2018-04-21] MEDS: Simethicone 80 MG Tab.Chew PO SCH ×3 (10:38→20:33)
[2018-04-21] MEDS ORDERED: oxyCODONE 5 MG Tab PO PRN (18:36)
--- NOTE | 2018-04-21 18:37 | PCM.SN ---
- Free Text/Narrative Note: Patient has continued to complain of right ear pain. Right ear still with extensive purulent material in the canal. Will change ear drops to cortisporin. Will also add oxycodone PRN for pain.
[2018-04-22] MEDS: Potassium Phosphate,Mb-Db/Sodium Phosphate,Mb-Db Packet PO SCH ×3 (09:00→19:36)
[2018-04-22] MEDS: Aspirin 81 MG Tab.EC PO SCH (09:00)
[2018-04-22] MEDS: Simethicone 80 MG Tab.Chew PO SCH ×3 (09:00→19:36)
[2018-04-22] MEDS: Amoxicillin/Clavulanate K 875-125 MG Tab PO SCH ×2 (09:00→19:36)
[2018-04-22] MEDS: SERTRALINE 25 MG PO SCH (09:01)
[2018-04-22] MEDS: Hydrocortisone/Neomycin/Polymyxin B Otic Susp 10 ML Bottle EARRT SCH ×5 (12:21→19:37)
[2018-04-22] MEDS: Acetaminophen 500 MG Tab PO PRN (14:20)
[2018-04-23] MEDS: Aspirin 81 MG Tab.EC PO SCH (09:32)
[2018-04-23] MEDS: Amoxicillin/Clavulanate K 875-125 MG Tab PO SCH ×2 (09:32→20:59)
[2018-04-23] MEDS: Simethicone 80 MG Tab.Chew PO SCH ×3 (09:32→20:59)
[2018-04-23] MEDS: Potassium Phosphate,Mb-Db/Sodium Phosphate,Mb-Db Packet PO SCH ×3 (09:32→20:59)
[2018-04-23] MEDS: SERTRALINE 25 MG PO SCH (09:33)
[2018-04-23] MEDS: Hydrocortisone/Neomycin/Polymyxin B Otic Susp 10 ML Bottle EARRT SCH ×4 (09:33→20:59)
[2018-04-24] MEDS: Aspirin 81 MG Tab.EC PO SCH (08:28)
[2018-04-24] MEDS: Amoxicillin/Clavulanate K 875-125 MG Tab PO SCH ×2 (08:28→20:43)
[2018-04-24] MEDS: Potassium Phosphate,Mb-Db/Sodium Phosphate,Mb-Db Packet PO SCH ×3 (08:28→20:43)
[2018-04-24] MEDS: SERTRALINE 25 MG PO SCH (08:29)
[2018-04-24] MEDS: Hydrocortisone/Neomycin/Polymyxin B Otic Susp 10 ML Bottle EARRT SCH ×4 (08:29→20:44)
[2018-04-24] MEDS: Simethicone 80 MG Tab.Chew PO SCH ×3 (08:29→20:43)
[2018-04-25] MEDS: SERTRALINE 25 MG PO SCH (09:26)
[2018-04-25] MEDS: Acetaminophen 500 MG Tab PO PRN (09:26)
[2018-04-25] MEDS: Aspirin 81 MG Tab.EC PO SCH (09:26)
[2018-04-25] MEDS: Simethicone 80 MG Tab.Chew PO SCH ×3 (09:26→19:31)
[2018-04-25] MEDS: Hydrocortisone/Neomycin/Polymyxin B Otic Susp 10 ML Bottle EARRT SCH ×4 (09:27→19:31)
[2018-04-25] MEDS: Amoxicillin/Clavulanate K 875-125 MG Tab PO SCH ×2 (09:27→19:31)
[2018-04-25] MEDS: Potassium Phosphate,Mb-Db/Sodium Phosphate,Mb-Db Packet PO SCH ×3 (09:27→19:31)
[2018-04-26] MEDS: Potassium Phosphate,Mb-Db/Sodium Phosphate,Mb-Db Packet PO SCH ×3 (08:17→19:17)
[2018-04-26] MEDS: Aspirin 81 MG Tab.EC PO SCH (08:18)
[2018-04-26] MEDS: Amoxicillin/Clavulanate K 875-125 MG Tab PO SCH ×2 (08:18→19:17)
[2018-04-26] MEDS: Simethicone 80 MG Tab.Chew PO SCH ×3 (08:18→19:17)
[2018-04-26] MEDS: Hydrocortisone/Neomycin/Polymyxin B Otic Susp 10 ML Bottle EARRT SCH ×4 (08:19→19:17)
[2018-04-26] MEDS: SERTRALINE 25 MG PO SCH (08:19)
[2018-04-27] MEDS: Amoxicillin/Clavulanate K 875-125 MG Tab PO SCH ×2 (07:51→19:28)
[2018-04-27] MEDS: Aspirin 81 MG Tab.EC PO SCH (07:51)
[2018-04-27] MEDS: Simethicone 80 MG Tab.Chew PO SCH ×3 (07:51→19:28)
[2018-04-27] MEDS: Potassium Phosphate,Mb-Db/Sodium Phosphate,Mb-Db Packet PO SCH ×3 (07:51→19:28)
[2018-04-27] MEDS: Hydrocortisone/Neomycin/Polymyxin B Otic Susp 10 ML Bottle EARRT SCH ×4 (07:55→19:28)
[2018-04-27] MEDS: SERTRALINE 25 MG PO SCH (08:45)
[2018-04-28] MEDS: SERTRALINE 25 MG PO SCH (09:26)
[2018-04-28] MEDS: Potassium Phosphate,Mb-Db/Sodium Phosphate,Mb-Db Packet PO SCH ×3 (09:27→19:53)
[2018-04-28] MEDS: Amoxicillin/Clavulanate K 875-125 MG Tab PO SCH ×2 (09:27→19:53)
[2018-04-28] MEDS: Simethicone 80 MG Tab.Chew PO SCH ×3 (09:27→19:53)
[2018-04-28] MEDS: Aspirin 81 MG Tab.EC PO SCH (09:27)
[2018-04-28] MEDS: Acetaminophen 500 MG Tab PO PRN ×2 (09:27→19:53)
[2018-04-29] MEDS: Simethicone 80 MG Tab.Chew PO SCH ×3 (08:54→19:41)
[2018-04-29] MEDS: Acetaminophen 500 MG Tab PO PRN (08:54)
[2018-04-29] MEDS: Aspirin 81 MG Tab.EC PO SCH (08:54)
[2018-04-29] MEDS: SERTRALINE 25 MG PO SCH (08:55)
[2018-04-29] MEDS: Potassium Phosphate,Mb-Db/Sodium Phosphate,Mb-Db Packet PO SCH ×3 (08:55→19:41)
[2018-04-30] MEDS: Aspirin 81 MG Tab.EC PO SCH (07:55)
[2018-04-30] MEDS: Simethicone 80 MG Tab.Chew PO SCH ×3 (07:55→20:30)
[2018-04-30] MEDS: Potassium Phosphate,Mb-Db/Sodium Phosphate,Mb-Db Packet PO SCH ×3 (07:55→20:30)
[2018-04-30] MEDS: SERTRALINE 25 MG PO SCH (07:58)
--- NOTE | 2018-04-30 08:41 | PCM.PN ---
- General Info Date of Service: 04/30/18 Subjective Update: Patient seen today for swing bed progress. He denies any concerns. Nursing staff have noted bloody drainage from the rectum over the past few days and felt he had an external tumor now on exam yesterday. Patient has had no pain with this. Suprapubic catheter change earlier in the week was also difficult due to adherence; he did have some bloody urine immediately after but that is now resolved. ROS is otherwise negative. - Review of Systems General: Reports: No Symptoms HEENT: Reports: No Symptoms Pulmonary: Reports: No Symptoms Cardiovascular: Reports: No Symptoms Gastrointestinal: Reports: No Symptoms Genitourinary: Reports: No Symptoms Musculoskeletal: Reports: No Symptoms Skin: Reports: No Symptoms Neurological: Reports: No Symptoms - Patient Data Vitals - Most Recent: Last Vital Signs Temp 36.7 C 04/30/18 06:00 Pulse 60 04/30/18 06:00 Resp 18 04/30/18 06:00 BP 156/76 H 04/30/18 06:00 Pulse Ox 97 04/30/18 06:00 Weight - Most Recent: 81.647 kg I&O - Last 24 Hours: Intake & Output 04/29/18 04/30/18 04/30/18 22:59 06:59 14:59 Intake Total 840 240 Output Total 600 Balance 840 -360 Med Orders - Current: Current Medications Acetaminophen (Tylenol Extra Strength) 500 mg PO Q6H PRN PRN Reason: Pain/Fever Last Admin: 04/29/18 08:54 Dose: 500 mg Aspirin (Halfprin) 81 mg PO WITHBREAKFAST [facility] Last Admin: 04/30/18 07:55 Dose: 81 mg Sertraline 25mg (Own (Supply)) 0 mg PO DAILY [facility] Last Admin: 04/30/18 07:58 Dose: 25 mg Ondansetron HCl (Zofran Odt) 4 mg PO Q8H PRN PRN Reason: Nausea/Vomiting Last Admin: 04/20/18 20:09 Dose: 4 mg Potassium Phos/Sodium Phos (Phos-Nak Powder) 1 each PO TID [facility] Last Admin: 04/30/18 07:55 Dose: 1 each Senna/Docusate Sodium (Senna Plus) 1 tab PO QID PRN PRN Reason: Constipation Simethicone (Simethicone) 80 mg PO TID [facility] Last Admin: 04/30/18 07:55 Dose: 80 mg Discontinued Medications Amoxicillin/Clavulanate Potassium (Augmentin 875 Mg/125 Mg) 1 tab PO BID [facility] Stop: 03/16/18 20:01 Last Admin: 03/11/18 08:42 Dose: 1 tab Amoxicillin/Clavulanate Potassium (Augmentin 875 Mg/125 Mg) 1 tab PO Q12HR [facility] Stop: 04/12/18 20:01 Last Admin: 04/12/18 21:00 Dose: 1 tab Amoxicillin/Clavulanate Potassium (Augmentin 875 Mg/125 Mg) 1 tab PO Q12HR [facility] Stop: 04/28/18 20:01 Last Admin: 04/28/18 19:53 Dose: 1 tab Aspirin (Aspirin) 81 mg PO WITHBREAKFAST [facility] Last Admin: 03/06/18 08:54 Dose: 81 mg Cefdinir (Omnicef) 300 mg PO BID [facility] Stop: 03/29/18 20:01 Last Admin: 03/26/18 09:53 Dose: 300 mg Enoxaparin Sodium (Lovenox) 40 mg SUBCUT DAILY [facility] Enoxaparin Sodium (Lovenox) 40 mg SUBCUT 2000 [facility] Last Admin: 03/05/18 20:26 Dose: 40 mg Enoxaparin Sodium (Lovenox) 40 mg SUBCUT BEDTIME [facility] Last Admin: 03/10/18 20:12 Dose: 40 mg Neomycin/Polymyxin/Hydrocortisone (Cortisporin Otic Susp) 0.1 ml EARRT QID [facility] Last Admin: 04/22/18 16:22 Dose: Not Given Neomycin/Polymyxin/Hydrocortisone (Cortisporin Otic Susp) 0 ml EARRT QID [facility] Stop: 04/27/18 20:01 Last Admin: 04/27/18 19:28 Dose: 4 drop Amoxicillin/Clavulanate 875/125mg (Own Supply) 0 mg PO BID [facility] Stop: 03/16/18 20:01 Last Admin: 03/16/18 20:05 Dose: 875 mg Enoxaparin. 40mg/0. (4ml (Own Supply)) 0 mg SUBCUT BEDTIME [facility] Last Admin: 03/19/18 21:54 Dose: 40 mg Cefdinir.300mg (Own (Supply)) 0 mg PO BID [facility] Stop: 03/29/18 20:01 Last Admin: 03/30/18 22:36 Dose: 300 mg Non-Formulary Medication (Ofloxacin Solution 0.3%) 5 drp EARRT BID [facility] Stop: 04/21/18 20:01 Last Admin: 04/21/18 20:33 Dose: 5 drp Nystatin (Nystatin Crm) 1 gm TOP BID PRN PRN Reason: Rash Oxybutynin Chloride (Oxybutynin) 5 mg PO TID PRN PRN Reason: bladder spasm Oxycodone HCl (Oxycodone) 5 mg PO Q4H PRN PRN Reason: Pain Oxycodone HCl (Oxycodone) 2.5 mg PO Q4H PRN PRN Reason: Pain Sertraline HCl (Zoloft) 25 mg PO DAILY [facility] Last Admin: 03/11/18 08:42 Dose: 25 mg - Exam General: Alert, Oriented, Cooperative, No Acute Distress HEENT: Mucous Membr. Moist/[place] Neck: Supple, Trachea Midline, No Thyromegaly. No: Lymphadenopathy Lungs: Clear to Auscultation, Normal Respiratory Effort Cardiovascular: Regular Rate, Regular Rhythm, No Murmurs GI/Abdominal Exam: Normal Bowel Sounds, Soft, Non-Tender, No Organomegaly, No Distention, No Mass, Other (firm mass noted at the external anus; patient has blood-tinged mucousy discharge from the rectum) Extremities: Non-Tender, No Pedal Edema, Normal Capillary Refill Peripheral Pulses: 2+: Radial (L), Radial (R) Skin: Warm, Dry, Intact - Problem List & Annotations (1) Abscess of scrotum SNOMED Code(s): 40104612 Code(s): N49.2 - INFLAMMATORY DISORDERS OF SCROTUM Status: Acute Current Visit: No (2) Wound, open, scrotum or testes SNOMED Code(s): 394623384 Code(s): S31.30XA - UNSPECIFIED OPEN WOUND OF SCROTUM AND TESTES, INIT ENCNTR Status: Acute Current Visit: No (3) Bladder spasm Status: Acute Current Visit: No (4) Colon cancer SNOMED Code(s): 198548244 Code(s): C18.9 - MALIGNANT NEOPLASM OF COLON, UNSPECIFIED Status: Acute Current Visit: No Qualifiers: Colon location: unspecified part of colon Qualified Code(s): C18.9 - Malignant neoplasm of colon, unspecified (5) Fistula SNOMED Code(s): 419986103 Code(s): L98.8 - OTH DISRD OF THE SKIN AND SUBCUTANEOUS TISSUE Status: Acute Current Visit: No (6) Depressed mood SNOMED Code(s): 638198797 Code(s): F32.9 - MAJOR DEPRESSIVE DISORDER, SINGLE EPISODE, UNSPECIFIED Status: Chronic Current Visit: No (7) Cerebrovascular accident (CVA) SNOMED Code(s): 585095584 Code(s): I63.9 - CEREBRAL INFARCTION, UNSPECIFIED Status: Chronic Current Visit: No Qualifiers: CVA mechanism: unspecified Qualified Code(s): I63.9 - Cerebral infarction, unspecified (8) Diabetes SNOMED Code(s): 87219892 Code(s): E11.9 - TYPE 2 DIABETES MELLITUS WITHOUT COMPLICATIONS Status: Chronic Current Visit: No Qualifiers: Diabetes mellitus type: type 2 Diabetes mellitus senior living insulin use: without senior living use Diabetes mellitus complication status: with neurologic complications Diabetes mellitus complication detail: with polyneuropathy Qualified Code(s): E11.42 - Type 2 diabetes mellitus with diabetic polyneuropathy (9) Hyperlipidemia SNOMED Code(s): 30413532 Code(s): E78.5 - HYPERLIPIDEMIA, UNSPECIFIED Status: Chronic Current Visit: No Qualifiers: Hyperlipidemia type: unspecified Qualified Code(s): E78.5 - Hyperlipidemia , unspecified (10) Hypertension SNOMED Code(s): 05335434 Code(s): I10 - ESSENTIAL (PRIMARY) HYPERTENSION Status: Chronic Current Visit: No Qualifiers: Hypertension type: essential hypertension Qualified Code(s): I10 - Essential (primary) hypertension - Problem List Review Problem List Initiated/Reviewed/Updated: Yes - My Orders Last 24 Hours: My Active Orders 05/26/18 09:00 Communication Order [RC] ROUTINE - Assessment Assessment:: 77 yo male on swing bed for wound cares. Overall stable but evidence of tumor growth on exam today; slight bloody drainage also suggests growth of the tumor. - Plan Plan:: 77 yo male who returns to swing bed for wound cares. #1 Scrotal Abscess #2 Wound of Scrotum - Wound cares BID. - He recently completed another course of antibiotics. - Will continue to monitor for signs of infection. #3 Colon Cancer #4 Fistula - Although he has been back and forth at times, overall he has declined to do any treatments for his cancer. - He is welcome to see colorectal surgery if he desires. Reviewed this again now and he declines the referral. - Cancer does appear to be progressing based on exam. - Discussed with patient and he voiced understanding. #5 Depression - Overall stable. - Continue sertraline. #6 CVA #7 Diabetes #8 Hypertension #9 Hyperlipidemia - Continue ASA. - All other medications discontinued once he transitioned to a palliative care approach. - BP has been higher recently but overall up and down. Will monitor for now. He will remain on swing bed for now - after care conference, plan is to stay on swing bed with current wound cares. He will let us know if he changes his mind on this at any point. Continue current medications without any changes. He is DNR/DNI - discussed on admission. No longer on lovenox for VTE prophylaxis given current goals of care.
[2018-05-01] MEDS: Potassium Phosphate,Mb-Db/Sodium Phosphate,Mb-Db Packet PO SCH ×3 (08:36→19:20)
[2018-05-01] MEDS: Aspirin 81 MG Tab.EC PO SCH (08:36)
[2018-05-01] MEDS: SERTRALINE 25 MG PO SCH (08:36)
[2018-05-01] MEDS: Simethicone 80 MG Tab.Chew PO SCH ×3 (08:36→19:20)
[2018-05-02] MEDS: SERTRALINE 25 MG PO SCH (08:32)
[2018-05-02] MEDS: Potassium Phosphate,Mb-Db/Sodium Phosphate,Mb-Db Packet PO SCH ×3 (08:33→20:40)
[2018-05-02] MEDS: Simethicone 80 MG Tab.Chew PO SCH ×3 (08:33→20:40)
[2018-05-02] MEDS: Aspirin 81 MG Tab.EC PO SCH (08:33)
[2018-05-03] MEDS: Aspirin 81 MG Tab.EC PO SCH (08:29)
[2018-05-03] MEDS: Potassium Phosphate,Mb-Db/Sodium Phosphate,Mb-Db Packet PO SCH ×3 (08:29→19:42)
[2018-05-03] MEDS: Simethicone 80 MG Tab.Chew PO SCH ×3 (08:29→19:42)
[2018-05-03] MEDS: SERTRALINE 25 MG PO SCH (08:30)
[2018-05-04] MEDS: SERTRALINE 25 MG PO SCH (11:14)
[2018-05-04] MEDS: Potassium Phosphate,Mb-Db/Sodium Phosphate,Mb-Db Packet PO SCH ×3 (11:14→19:26)
[2018-05-04] MEDS: Aspirin 81 MG Tab.EC PO SCH (11:14)
[2018-05-04] MEDS: Simethicone 80 MG Tab.Chew PO SCH ×3 (11:15→19:26)
[2018-05-05] MEDS: Aspirin 81 MG Tab.EC PO SCH (07:33)
[2018-05-05] MEDS: Potassium Phosphate,Mb-Db/Sodium Phosphate,Mb-Db Packet PO SCH ×3 (07:33→19:30)
[2018-05-05] MEDS: Simethicone 80 MG Tab.Chew PO SCH ×3 (07:33→19:30)
[2018-05-05] MEDS: SERTRALINE 25 MG PO SCH (07:34)
[2018-05-06] MEDS: Aspirin 81 MG Tab.EC PO SCH (07:44)
[2018-05-06] MEDS: Potassium Phosphate,Mb-Db/Sodium Phosphate,Mb-Db Packet PO SCH ×3 (07:44→19:56)
[2018-05-06] MEDS: Simethicone 80 MG Tab.Chew PO SCH ×3 (07:44→19:56)
[2018-05-06] MEDS: SERTRALINE 25 MG PO SCH (07:45)
[2018-05-06] MEDS: Acetaminophen 500 MG Tab PO SCH (19:57)
[2018-05-07] MEDS: Potassium Phosphate,Mb-Db/Sodium Phosphate,Mb-Db Packet PO SCH ×3 (09:34→19:30)
[2018-05-07] MEDS: Simethicone 80 MG Tab.Chew PO SCH ×3 (09:34→19:31)
[2018-05-07] MEDS: Aspirin 81 MG Tab.EC PO SCH (09:34)
[2018-05-07] MEDS: Acetaminophen 500 MG Tab PO SCH ×3 (09:34→19:30)
[2018-05-07] MEDS: SERTRALINE 25 MG PO SCH (09:35)
[2018-05-08] MEDS: Simethicone 80 MG Tab.Chew PO SCH ×3 (09:17→19:48)
[2018-05-08] MEDS: Aspirin 81 MG Tab.EC PO SCH (09:17)
[2018-05-08] MEDS: Acetaminophen 500 MG Tab PO SCH ×3 (09:17→19:48)
[2018-05-08] MEDS: SERTRALINE 25 MG PO SCH (09:17)
[2018-05-08] MEDS: Potassium Phosphate,Mb-Db/Sodium Phosphate,Mb-Db Packet PO SCH ×3 (09:17→19:48)
[2018-05-09] MEDS: Potassium Phosphate,Mb-Db/Sodium Phosphate,Mb-Db Packet PO SCH ×3 (09:16→20:31)
[2018-05-09] MEDS: SERTRALINE 25 MG PO SCH (09:16)
[2018-05-09] MEDS: Aspirin 81 MG Tab.EC PO SCH (09:16)
[2018-05-09] MEDS: Simethicone 80 MG Tab.Chew PO SCH ×3 (09:16→20:31)
[2018-05-09] MEDS: Acetaminophen 500 MG Tab PO SCH ×4 (09:16→20:31)
--- NOTE | 2018-05-09 18:04 | PCM.SN ---
- Free Text/Narrative Note: Patient and family wondering if he needs antibiotics today. On exam, he has tenderness but no unusual edema or erythema. No fluctuance. Therefore, antibiotics not recommended. Did review evidence of cancer progression. Discussed possibility of changing wound cares to once/day or not at all so he could potentially go home but he declines at this time. No change to the current plan of care.
[2018-05-10] MEDS: Simethicone 80 MG Tab.Chew PO SCH ×3 (09:12→20:54)
[2018-05-10] MEDS: SERTRALINE 25 MG PO SCH (09:12)
[2018-05-10] MEDS: Aspirin 81 MG Tab.EC PO SCH (09:12)
[2018-05-10] MEDS: Potassium Phosphate,Mb-Db/Sodium Phosphate,Mb-Db Packet PO SCH ×3 (09:12→20:54)
[2018-05-10] MEDS: Acetaminophen 500 MG Tab PO SCH ×3 (09:13→20:54)
[2018-05-11] MEDS: Simethicone 80 MG Tab.Chew PO SCH ×3 (09:38→20:39)
[2018-05-11] MEDS: Aspirin 81 MG Tab.EC PO SCH (09:38)
[2018-05-11] MEDS: SERTRALINE 25 MG PO SCH (09:38)
[2018-05-11] MEDS: Potassium Phosphate,Mb-Db/Sodium Phosphate,Mb-Db Packet PO SCH ×3 (09:38→20:39)
[2018-05-11] MEDS: Acetaminophen 500 MG Tab PO SCH ×3 (09:53→21:39)
[2018-05-12] MEDS: Aspirin 81 MG Tab.EC PO SCH (09:09)
[2018-05-12] MEDS: Potassium Phosphate,Mb-Db/Sodium Phosphate,Mb-Db Packet PO SCH ×3 (09:09→20:30)
[2018-05-12] MEDS: Acetaminophen 500 MG Tab PO SCH ×3 (09:09→20:30)
[2018-05-12] MEDS: Simethicone 80 MG Tab.Chew PO SCH ×3 (09:09→20:30)
[2018-05-12] MEDS: SERTRALINE 25 MG PO SCH (09:09)
[2018-05-13] MEDS: SERTRALINE 25 MG PO SCH (09:49)
[2018-05-13] MEDS: Potassium Phosphate,Mb-Db/Sodium Phosphate,Mb-Db Packet PO SCH ×3 (09:50→20:08)
[2018-05-13] MEDS: Aspirin 81 MG Tab.EC PO SCH (09:50)
[2018-05-13] MEDS: Acetaminophen 500 MG Tab PO SCH ×3 (09:50→21:03)
[2018-05-13] MEDS: Simethicone 80 MG Tab.Chew PO SCH ×3 (09:50→20:08)
[2018-05-14] MEDS: Simethicone 80 MG Tab.Chew PO SCH ×3 (09:21→19:37)
[2018-05-14] MEDS: Potassium Phosphate,Mb-Db/Sodium Phosphate,Mb-Db Packet PO SCH ×3 (09:21→19:37)
[2018-05-14] MEDS: Aspirin 81 MG Tab.EC PO SCH (09:21)
[2018-05-14] MEDS: Acetaminophen 500 MG Tab PO SCH ×3 (09:22→19:37)
[2018-05-14] MEDS: SERTRALINE 25 MG PO SCH (09:22)
[2018-05-15] MEDS: Simethicone 80 MG Tab.Chew PO SCH ×3 (08:57→19:30)
[2018-05-15] MEDS: Aspirin 81 MG Tab.EC PO SCH (08:57)
[2018-05-15] MEDS: Potassium Phosphate,Mb-Db/Sodium Phosphate,Mb-Db Packet PO SCH ×3 (08:57→19:30)
[2018-05-15] MEDS: Acetaminophen 500 MG Tab PO SCH ×3 (08:58→19:30)
[2018-05-15] MEDS: SERTRALINE 25 MG PO SCH (08:58)
[2018-05-16] MEDS: Aspirin 81 MG Tab.EC PO SCH (07:22)
[2018-05-16] MEDS: Simethicone 80 MG Tab.Chew PO SCH ×3 (07:22→19:32)
[2018-05-16] MEDS: Acetaminophen 500 MG Tab PO SCH ×3 (07:22→19:31)
[2018-05-16] MEDS: Potassium Phosphate,Mb-Db/Sodium Phosphate,Mb-Db Packet PO SCH ×3 (07:23→19:30)
[2018-05-16] MEDS: SERTRALINE 25 MG PO SCH (07:23)
[2018-05-17] MEDS: Simethicone 80 MG Tab.Chew PO SCH ×3 (08:45→19:34)
[2018-05-17] MEDS: SERTRALINE 25 MG PO SCH (08:45)
[2018-05-17] MEDS: Potassium Phosphate,Mb-Db/Sodium Phosphate,Mb-Db Packet PO SCH ×3 (08:45→19:33)
[2018-05-17] MEDS: Aspirin 81 MG Tab.EC PO SCH (08:45)
[2018-05-17] MEDS: Acetaminophen 500 MG Tab PO SCH ×3 (08:45→19:33)
[2018-05-18] MEDS: Acetaminophen 500 MG Tab PO SCH ×3 (09:24→19:30)
[2018-05-18] MEDS: Aspirin 81 MG Tab.EC PO SCH (09:24)
[2018-05-18] MEDS: Potassium Phosphate,Mb-Db/Sodium Phosphate,Mb-Db Packet PO SCH ×3 (09:24→19:30)
[2018-05-18] MEDS: SERTRALINE 25 MG PO SCH (09:25)
[2018-05-18] MEDS: Simethicone 80 MG Tab.Chew PO SCH ×3 (09:25→19:30)
[2018-05-19] MEDS: Potassium Phosphate,Mb-Db/Sodium Phosphate,Mb-Db Packet PO SCH ×3 (09:56→20:12)
[2018-05-19] MEDS: Simethicone 80 MG Tab.Chew PO SCH ×3 (09:56→20:12)
[2018-05-19] MEDS: Aspirin 81 MG Tab.EC PO SCH (09:56)
[2018-05-19] MEDS: SERTRALINE 25 MG PO SCH (09:56)
[2018-05-19] MEDS: Acetaminophen 500 MG Tab PO SCH ×3 (09:57→20:30)
[2018-05-20] MEDS: SERTRALINE 25 MG PO SCH (10:00)
[2018-05-20] MEDS: Potassium Phosphate,Mb-Db/Sodium Phosphate,Mb-Db Packet PO SCH ×3 (10:01→20:17)
[2018-05-20] MEDS: Simethicone 80 MG Tab.Chew PO SCH ×3 (10:01→20:17)
[2018-05-20] MEDS: Acetaminophen 500 MG Tab PO SCH ×3 (10:01→20:17)
[2018-05-20] MEDS: Aspirin 81 MG Tab.EC PO SCH (10:01)
[2018-05-21] MEDS: Aspirin 81 MG Tab.EC PO SCH (07:51)
[2018-05-21] MEDS: Simethicone 80 MG Tab.Chew PO SCH ×3 (07:51→20:33)
[2018-05-21] MEDS: Potassium Phosphate,Mb-Db/Sodium Phosphate,Mb-Db Packet PO SCH ×3 (07:51→20:33)
[2018-05-21] MEDS: SERTRALINE 25 MG PO SCH (07:51)
[2018-05-21] MEDS: Acetaminophen 500 MG Tab PO SCH ×3 (07:52→20:34)
[2018-05-22] MEDS: Simethicone 80 MG Tab.Chew PO SCH ×3 (09:02→20:10)
[2018-05-22] MEDS: Aspirin 81 MG Tab.EC PO SCH (09:02)
[2018-05-22] MEDS: Potassium Phosphate,Mb-Db/Sodium Phosphate,Mb-Db Packet PO SCH ×3 (09:02→20:10)
[2018-05-22] MEDS: SERTRALINE 25 MG PO SCH (09:03)
[2018-05-22] MEDS: Acetaminophen 500 MG Tab PO SCH ×3 (09:03→20:50)
[2018-05-23] MEDS: Acetaminophen 500 MG Tab PO SCH ×3 (09:55→19:39)
[2018-05-23] MEDS: Simethicone 80 MG Tab.Chew PO SCH ×3 (09:55→19:37)
[2018-05-23] MEDS: Aspirin 81 MG Tab.EC PO SCH (09:55)
[2018-05-23] MEDS: Potassium Phosphate,Mb-Db/Sodium Phosphate,Mb-Db Packet PO SCH ×3 (09:55→19:37)
[2018-05-23] MEDS: SERTRALINE 25 MG PO SCH (09:55)
[2018-05-24] MEDS: Aspirin 81 MG Tab.EC PO SCH (08:34)
[2018-05-24] MEDS: Potassium Phosphate,Mb-Db/Sodium Phosphate,Mb-Db Packet PO SCH ×3 (08:34→20:20)
[2018-05-24] MEDS: Acetaminophen 500 MG Tab PO SCH ×3 (08:34→20:20)
[2018-05-24] MEDS: Simethicone 80 MG Tab.Chew PO SCH ×3 (08:34→20:20)
[2018-05-24] MEDS: SERTRALINE 25 MG PO SCH (08:35)
[2018-05-25] MEDS: Potassium Phosphate,Mb-Db/Sodium Phosphate,Mb-Db Packet PO SCH ×3 (10:16→20:33)
[2018-05-25] MEDS: Acetaminophen 500 MG Tab PO SCH ×3 (10:16→20:33)
[2018-05-25] MEDS: Simethicone 80 MG Tab.Chew PO SCH ×3 (10:16→20:33)
[2018-05-25] MEDS: Aspirin 81 MG Tab.EC PO SCH (10:16)
[2018-05-25] MEDS: SERTRALINE 25 MG PO SCH (10:17)
[2018-05-26] MEDS: Potassium Phosphate,Mb-Db/Sodium Phosphate,Mb-Db Packet PO SCH ×3 (08:00→20:06)
[2018-05-26] MEDS: Aspirin 81 MG Tab.EC PO SCH (08:02)
[2018-05-26] MEDS: Simethicone 80 MG Tab.Chew PO SCH ×3 (08:03→20:06)
[2018-05-26] MEDS: SERTRALINE 25 MG PO SCH (08:03)
[2018-05-26] MEDS: Acetaminophen 500 MG Tab PO SCH ×3 (08:04→20:05)
[2018-05-27] MEDS: SERTRALINE 25 MG PO SCH (08:30)
[2018-05-27] MEDS: Aspirin 81 MG Tab.EC PO SCH (08:30)
[2018-05-27] MEDS: Simethicone 80 MG Tab.Chew PO SCH ×3 (08:30→19:48)
[2018-05-27] MEDS: Potassium Phosphate,Mb-Db/Sodium Phosphate,Mb-Db Packet PO SCH ×3 (08:30→19:47)
--- NOTE | 2018-05-27 08:39 | PCM.PN ---
- General Info Date of Service: 05/27/18 Subjective Update: Patient seen today for swing bed follow-up. He denies any questions or concerns today. On ROS, he does admit that his appetite has not been as good recently. He denies any nausea or vomiting though. He denies any scrotal pain and has not had any fevers. ROS is otherwise negative. - Review of Systems General: Reports: No Symptoms HEENT: Reports: No Symptoms Pulmonary: Reports: No Symptoms Cardiovascular: Reports: No Symptoms Gastrointestinal: Reports: No Symptoms Genitourinary: Reports: No Symptoms Musculoskeletal: Reports: No Symptoms Skin: Reports: No Symptoms Neurological: Reports: No Symptoms - Patient Data Vitals - Most Recent: Last Vital Signs Temp 36.1 C 05/26/18 09:00 Pulse 70 05/23/18 16:12 Resp 22 H 05/26/18 09:00 BP 142/70 H 05/26/18 09:00 Pulse Ox 96 05/26/18 09:00 Weight - Most Recent: 78.925 kg I&O - Last 24 Hours: Intake & Output 05/26/18 05/27/18 05/27/18 22:59 06:59 14:59 Output Total 200 550 Balance -200 -550 Med Orders - Current: Current Medications Acetaminophen (Tylenol Extra Strength) 1,000 mg PO TID [facility] Last Admin: 05/26/18 20:05 Dose: 1,000 mg Aspirin (Halfprin) 81 mg PO WITHBREAKFAST [facility] Last Admin: 05/26/18 08:02 Dose: 81 mg Sertraline 25mg (Own (Supply)) 0 mg PO DAILY [facility] Last Admin: 05/26/18 08:03 Dose: 25 mg Ondansetron HCl (Zofran Odt) 4 mg PO Q8H PRN PRN Reason: Nausea/Vomiting Last Admin: 04/20/18 20:09 Dose: 4 mg Potassium Phos/Sodium Phos (Phos-Nak Powder) 1 each PO TID [facility] Last Admin: 05/26/18 20:06 Dose: 1 each Senna/Docusate Sodium (Senna Plus) 1 tab PO QID PRN PRN Reason: Constipation Simethicone (Simethicone) 80 mg PO TID [facility] Last Admin: 05/26/18 20:06 Dose: 80 mg Discontinued Medications Acetaminophen (Tylenol Extra Strength) 500 mg PO Q6H PRN PRN Reason: Pain/Fever Last Admin: 04/29/18 08:54 Dose: 500 mg Amoxicillin/Clavulanate Potassium (Augmentin 875 Mg/125 Mg) 1 tab PO BID [facility] Stop: 03/16/18 20:01 Last Admin: 03/11/18 08:42 Dose: 1 tab Amoxicillin/Clavulanate Potassium (Augmentin 875 Mg/125 Mg) 1 tab PO Q12HR [facility] Stop: 04/12/18 20:01 Last Admin: 04/12/18 21:00 Dose: 1 tab Amoxicillin/Clavulanate Potassium (Augmentin 875 Mg/125 Mg) 1 tab PO Q12HR [facility] Stop: 04/28/18 20:01 Last Admin: 04/28/18 19:53 Dose: 1 tab Aspirin (Aspirin) 81 mg PO WITHBREAKFAST [facility] Last Admin: 03/06/18 08:54 Dose: 81 mg Cefdinir (Omnicef) 300 mg PO BID [facility] Stop: 03/29/18 20:01 Last Admin: 03/26/18 09:53 Dose: 300 mg Enoxaparin Sodium (Lovenox) 40 mg SUBCUT DAILY [facility] Enoxaparin Sodium (Lovenox) 40 mg SUBCUT 2000 [facility] Last Admin: 03/05/18 20:26 Dose: 40 mg Enoxaparin Sodium (Lovenox) 40 mg SUBCUT BEDTIME [facility] Last Admin: 03/10/18 20:12 Dose: 40 mg Neomycin/Polymyxin/Hydrocortisone (Cortisporin Otic Susp) 0.1 ml EARRT QID [facility] Last Admin: 04/22/18 16:22 Dose: Not Given Neomycin/Polymyxin/Hydrocortisone (Cortisporin Otic Susp) 0 ml EARRT QID [facility] Stop: 04/27/18 20:01 Last Admin: 04/27/18 19:28 Dose: 4 drop Amoxicillin/Clavulanate 875/125mg (Own Supply) 0 mg PO BID [facility] Stop: 03/16/18 20:01 Last Admin: 03/16/18 20:05 Dose: 875 mg Enoxaparin. 40mg/0. (4ml (Own Supply)) 0 mg SUBCUT BEDTIME [facility] Last Admin: 03/19/18 21:54 Dose: 40 mg Cefdinir.300mg (Own (Supply)) 0 mg PO BID [facility] Stop: 03/29/18 20:01 Last Admin: 03/30/18 22:36 Dose: 300 mg Non-Formulary Medication (Ofloxacin Solution 0.3%) 5 drp EARRT BID [facility] Stop: 04/21/18 20:01 Last Admin: 04/21/18 20:33 Dose: 5 drp Nystatin (Nystatin Crm) 1 gm TOP BID PRN PRN Reason: Rash Oxybutynin Chloride (Oxybutynin) 5 mg PO TID PRN PRN Reason: bladder spasm Oxycodone HCl (Oxycodone) 5 mg PO Q4H PRN PRN Reason: Pain Oxycodone HCl (Oxycodone) 2.5 mg PO Q4H PRN PRN Reason: Pain Sertraline HCl (Zoloft) 25 mg PO DAILY [facility] Last Admin: 03/11/18 08:42 Dose: 25 mg - Exam General: Alert, Cooperative, No Acute Distress HEENT: Mucous Membr. Moist/[place] Neck: Supple, Trachea Midline, No Thyromegaly. No: Lymphadenopathy Lungs: Clear to Auscultation, Normal Respiratory Effort Cardiovascular: Regular Rate, Regular Rhythm, No Murmurs GI/Abdominal Exam: Normal Bowel Sounds, Soft, Non-Tender, No Organomegaly, No Distention, No Mass Extremities: Non-Tender, No Pedal Edema, Normal Capillary Refill Peripheral Pulses: 2+: Radial (L), Radial (R) Skin: Warm, Dry, Intact Neurological: No New Focal Deficit - Problem List & Annotations (1) Abscess of scrotum SNOMED Code(s): 05332614 Code(s): N49.2 - INFLAMMATORY DISORDERS OF SCROTUM Status: Acute Current Visit: No (2) Wound, open, scrotum or testes SNOMED Code(s): 106737104 Code(s): S31.30XA - UNSPECIFIED OPEN WOUND OF SCROTUM AND TESTES, INIT ENCNTR Status: Acute Current Visit: No (3) Bladder spasm Status: Acute Current Visit: No (4) Colon cancer SNOMED Code(s): 536037433 Code(s): C18.9 - MALIGNANT NEOPLASM OF COLON, UNSPECIFIED Status: Acute Current Visit: No Qualifiers: Colon location: unspecified part of colon Qualified Code(s): C18.9 - Malignant neoplasm of colon, unspecified (5) Fistula SNOMED Code(s): 162795751 Code(s): L98.8 - OTH DISRD OF THE SKIN AND SUBCUTANEOUS TISSUE Status: Acute Current Visit: No (6) Depressed mood SNOMED Code(s): 924846400 Code(s): F32.9 - MAJOR DEPRESSIVE DISORDER, SINGLE EPISODE, UNSPECIFIED Status: Chronic Current Visit: No (7) Cerebrovascular accident (CVA) SNOMED Code(s): 919374654 Code(s): I63.9 - CEREBRAL INFARCTION, UNSPECIFIED Status: Chronic Current Visit: No Qualifiers: CVA mechanism: unspecified Qualified Code(s): I63.9 - Cerebral infarction, unspecified (8) Diabetes SNOMED Code(s): 88839077 Code(s): E11.9 - TYPE 2 DIABETES MELLITUS WITHOUT COMPLICATIONS Status: Chronic Current Visit: No Qualifiers: Diabetes mellitus type: type 2 Diabetes mellitus meterman insulin use: without snf use Diabetes mellitus complication status: with neurologic complications Diabetes mellitus complication detail: with polyneuropathy Qualified Code(s): E11.42 - Type 2 diabetes mellitus with diabetic polyneuropathy (9) Hyperlipidemia SNOMED Code(s): 44082327 Code(s): E78.5 - HYPERLIPIDEMIA, UNSPECIFIED Status: Chronic Current Visit: No Qualifiers: Hyperlipidemia type: unspecified Qualified Code(s): E78.5 - Hyperlipidemia , unspecified (10) Hypertension SNOMED Code(s): 66536171 Code(s): I10 - ESSENTIAL (PRIMARY) HYPERTENSION Status: Chronic Current Visit: No Qualifiers: Hypertension type: essential hypertension Qualified Code(s): I10 - Essential (primary) hypertension - Problem List Review Problem List Initiated/Reviewed/Updated: Yes - My Orders Last 24 Hours: My Active Orders 05/26/18 09:00 Communication Order [RC] ROUTINE - Assessment Assessment:: 77 yo male on swing bed for wound cares. Has been overall stable for the past month, although he is losing weight secondary to decreased PO intake. - Plan Plan:: 77 yo male who returns to swing bed for wound cares. #1 Scrotal Abscess #2 Wound of Scrotum - Wound cares BID. - Has been stable without need for antibiotics for a few weeks. - Will continue to monitor for signs of infection. #3 Colon Cancer #4 Fistula - Patient has declined to do any treatments for his cancer. - He and his family are still in conversations about how long he will stay here versus when and if he will go home. #5 Depression - Overall stable. - Continue sertraline. #6 CVA #7 Diabetes #8 Hypertension #9 Hyperlipidemia - Continue ASA. - All other medications discontinued once he transitioned to a palliative care approach. - BP much better over the past month. Will continue to monitor. He will remain on swing bed for now - after most recent care conference, plan is to stay on swing bed with current wound cares. He will let us know if he changes his mind on this at any point. Continue current medications without any changes. He is DNR/DNI - discussed on admission. No longer on lovenox for VTE prophylaxis given current goals of care.
[2018-05-27] MEDS: Acetaminophen 500 MG Tab PO SCH ×3 (09:43→19:48)
[2018-05-28] MEDS: Aspirin 81 MG Tab.EC PO SCH (09:07)
[2018-05-28] MEDS: Simethicone 80 MG Tab.Chew PO SCH ×3 (09:07→19:25)
[2018-05-28] MEDS: Potassium Phosphate,Mb-Db/Sodium Phosphate,Mb-Db Packet PO SCH ×3 (09:07→19:26)
[2018-05-28] MEDS: SERTRALINE 25 MG PO SCH (09:08)
[2018-05-28] MEDS: Acetaminophen 500 MG Tab PO SCH ×3 (09:22→19:50)
[2018-05-29] MEDS: Potassium Phosphate,Mb-Db/Sodium Phosphate,Mb-Db Packet PO SCH ×3 (07:57→20:15)
[2018-05-29] MEDS: Aspirin 81 MG Tab.EC PO SCH (07:58)
[2018-05-29] MEDS: Acetaminophen 500 MG Tab PO SCH ×3 (07:58→20:14)
[2018-05-29] MEDS: Simethicone 80 MG Tab.Chew PO SCH ×3 (07:58→20:14)
[2018-05-29] MEDS: SERTRALINE 25 MG PO SCH (07:59)
[2018-05-30] MEDS: Aspirin 81 MG Tab.EC PO SCH (08:34)
[2018-05-30] MEDS: Potassium Phosphate,Mb-Db/Sodium Phosphate,Mb-Db Packet PO SCH ×3 (08:34→20:23)
[2018-05-30] MEDS: SERTRALINE 25 MG PO SCH (08:35)
[2018-05-30] MEDS: Simethicone 80 MG Tab.Chew PO SCH ×3 (08:35→20:23)
[2018-05-30] MEDS: Acetaminophen 500 MG Tab PO SCH ×3 (08:36→20:23)
[2018-05-31] MEDS: SERTRALINE 25 MG PO SCH (08:12)
[2018-05-31] MEDS: Potassium Phosphate,Mb-Db/Sodium Phosphate,Mb-Db Packet PO SCH ×3 (08:12→19:55)
[2018-05-31] MEDS: Simethicone 80 MG Tab.Chew PO SCH ×3 (08:12→19:56)
[2018-05-31] MEDS: Aspirin 81 MG Tab.EC PO SCH (08:12)
[2018-05-31] MEDS: Acetaminophen 500 MG Tab PO SCH ×3 (08:12→19:56)
[2018-06-01] MEDS: Aspirin 81 MG Tab.EC PO SCH (08:01)
[2018-06-01] MEDS: Potassium Phosphate,Mb-Db/Sodium Phosphate,Mb-Db Packet PO SCH ×3 (08:01→19:58)
[2018-06-01] MEDS: SERTRALINE 25 MG PO SCH (08:01)
[2018-06-01] MEDS: Acetaminophen 500 MG Tab PO SCH ×3 (08:01→19:58)
[2018-06-01] MEDS: Simethicone 80 MG Tab.Chew PO SCH ×3 (08:01→19:58)
[2018-06-02] MEDS: Aspirin 81 MG Tab.EC PO SCH (09:09)
[2018-06-02] MEDS: Potassium Phosphate,Mb-Db/Sodium Phosphate,Mb-Db Packet PO SCH ×3 (09:09→19:46)
[2018-06-02] MEDS: SERTRALINE 25 MG PO SCH (09:10)
[2018-06-02] MEDS: Simethicone 80 MG Tab.Chew PO SCH ×3 (09:11→19:46)
[2018-06-02] MEDS: Acetaminophen 500 MG Tab PO SCH ×3 (09:12→19:46)
[2018-06-03] MEDS: SERTRALINE 25 MG PO SCH (09:03)
[2018-06-03] MEDS: Acetaminophen 500 MG Tab PO SCH ×2 (09:03→15:31)
[2018-06-03] MEDS: Potassium Phosphate,Mb-Db/Sodium Phosphate,Mb-Db Packet PO SCH ×2 (09:03→15:28)
[2018-06-03] MEDS: Aspirin 81 MG Tab.EC PO SCH (09:03)
[2018-06-03] MEDS: Simethicone 80 MG Tab.Chew PO SCH ×2 (09:04→15:28)
--- NOTE | 2018-06-03 10:22 | PCM.SN ---
- Free Text/Narrative Note: Contacted by nursing that patient's scrotum was much more swollen and red yesterday and today. Does have significant generalized edema of the scrotum as well as generalized erythema and tenderness to palpation. Areas of induration but no definite fluctuance. Does have drainage of purulent material with the dressing change. Discussed with patient that I cannot palpable a definite abscess. One way to determine for sure would be to do a CT scan, which he is not really interested in doing. Discussed starting antibiotics today and re- evaluating tomorrow on whether he needs a CT scan and/or transfer to [place] for I /D. He is in agreement with this plan. Orders entered for cefdinir.
[2018-06-03] MEDS ORDERED: CEFDINIR 300 MG PO SCH (15:00)
--- NOTE | 2018-06-03 16:34 | CT ---
[id number] CT/CT Pelvis WO IV Exam: CT Pelvis WO IV Clinical Data: SCROTAL SWELLING. COMPARISON: CORRELATION IS MADE WITH THE EXAM OF JANUARY 31, 2018. FINDINGS: There is a suprapubic cystostomy. There are radiation seeds in the pelvis. There is significant scrotal swelling. There is air in the soft tissues. 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 This is a surgical emergency. Report called at time of dictation. Likely the patient is diabetic. There are advanced vascular calcifications. 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 Bandar Cazares MD 06/03/18 [id number] Thank you for allowing us to participate in the care of your patient.
--- NOTE | 2018-06-03 17:21 | PCM.DCSUM1 ---
Discharge Summary - Hospital Course Brief History: Mr. Banda is a 77 yo male who has been admitted to [facility] swing bed since last fall related to a chronic scrotal wound. - Discharge Data Discharge Date: 06/03/18 Discharge Disposition: DC/Tfer to Acute Hospital 02 Condition: Good - Discharge Diagnosis/Problem(s) (1) Yoel gangrene SNOMED Code(s): 192304077 ICD Code: N49.3 - YOEL GANGRENE Status: Acute Current Visit: Yes (2) Abscess of scrotum SNOMED Code(s): 42052951 ICD Code: N49.2 - INFLAMMATORY DISORDERS OF SCROTUM Status: Acute Current Visit: No (3) Wound, open, scrotum or testes SNOMED Code(s): 317962942 ICD Code: S31.30XA - UNSPECIFIED OPEN WOUND OF SCROTUM AND TESTES, INIT ENCNTR Status: Acute Current Visit: No (4) Bladder spasm Status: Acute Current Visit: No (5) Colon cancer SNOMED Code(s): 105602854 ICD Code: C18.9 - MALIGNANT NEOPLASM OF COLON, UNSPECIFIED Status: Acute Current Visit: No Qualifiers: Colon location: unspecified part of colon Qualified Code(s): C18.9 - Malignant neoplasm of colon, unspecified (6) Fistula SNOMED Code(s): 009395554 ICD Code: L98.8 - OTH DISRD OF THE SKIN AND SUBCUTANEOUS TISSUE Status: Acute Current Visit: No (7) Depressed mood SNOMED Code(s): 527422775 ICD Code: F32.9 - MAJOR DEPRESSIVE DISORDER, SINGLE EPISODE, UNSPECIFIED Status: Chronic Current Visit: No (8) Cerebrovascular accident (CVA) SNOMED Code(s): 177342130 ICD Code: I63.9 - CEREBRAL INFARCTION, UNSPECIFIED Status: Chronic Current Visit: No Qualifiers: CVA mechanism: unspecified Qualified Code(s): I63.9 - Cerebral infarction, unspecified (9) Diabetes SNOMED Code(s): 96416052 ICD Code: E11.9 - TYPE 2 DIABETES MELLITUS WITHOUT COMPLICATIONS Status: Chronic Current Visit: No Qualifiers: Diabetes mellitus type: type 2 Diabetes mellitus technician terminal and repeater insulin use: without alf use Diabetes mellitus complication status: with neurologic complications Diabetes mellitus complication detail: with polyneuropathy Qualified Code(s): E11.42 - Type 2 diabetes mellitus with diabetic polyneuropathy (10) Hyperlipidemia SNOMED Code(s): 12261702 ICD Code: E78.5 - HYPERLIPIDEMIA, UNSPECIFIED Status: Chronic Current Visit: No Qualifiers: Hyperlipidemia type: unspecified Qualified Code(s): E78.5 - Hyperlipidemia , unspecified (11) Hypertension SNOMED Code(s): 42965310 ICD Code: I10 - ESSENTIAL (PRIMARY) HYPERTENSION Status: Chronic Current Visit: No Qualifiers: Hypertension type: essential hypertension Qualified Code(s): I10 - Essential (primary) hypertension - Patient Summary/Data Operative Procedure(s) Performed: none Complications: none Consults: none Labs Pending at D/C: none Recommended Follow-up Testing/Procedures: none Planned Operative Procedure(s) after DC: none Hospital Course: Patient has had recurrent scrotal infections over his swing bed course and did require admission back to [place] in February for a recurrence of his abscess. Since then, he has needed antibiotics again a couple of times but has now gone for >1 month without antibiotics. Over the past 24 hours, he has had increasing redness, swelling, and pain in the scrotum. He had a CT scan today that raised concern for Yoel gangrene. Therefore, transfer to [place] for further evaluation and management was recommended. The patient and his are in agreement with this plan. Contacted [facility] via [facility] and surgery did accept the patient for transfer. He will be transported by EMS to [place] for further cares. - Discharge Plan *PRESCRIPTION DRUG MONITORING PROGRAM REVIEWED*: No *COPY OF PRESCRIPTION DRUG MONITORING REPORT IN PATIENT HAVEN: No Home Medications: Home Meds Delmi Meehan-Db/K Ph,MB-DB [Phos-NaK Powder] 1 pack PO TID 11/26/17 [History] Sennosides/Docusate Sodium [Senna-Docusate Sodium Tablet] 1 tab PO QID PRN 11/26 [History] Sertraline [Zoloft] 25 mg PO DAILY 11/26/17 [History] Nystatin [Nystatin Crm] 0 gm TOP BID PRN tube 02/28/18 [Rx] Simethicone 80 mg PO TID tab.chew 02/28/18 [Rx] Acetaminophen [Tylenol Extra Strength] 1,000 mg PO Q6H PRN 03/05/18 [History] Amoxicillin/Potassium Clav [Augmentin 875-125 Tablet] 1 tab PO BID 03/05/18 [ History] Aspirin 81 mg PO DAILY@0800 03/05/18 [History] Enoxaparin [Lovenox] 40 mg SUBCUT DAILY 03/05/18 [History] Oxybutynin 5 mg PO TID PRN 03/05/18 [History] oxyCODONE 5 mg PO Q4H PRN 03/05/18 [History] - Discharge Summary/Plan Comment DC Time >30 min.: Yes (35) - General Info Date of Service: 06/03/18 - Patient Data Vitals - Most Recent: Last Vital Signs Temp 37.4 C 06/02/18 09:00 Pulse 73 06/02/18 09:00 Resp 20 06/02/18 09:00 BP 120/61 06/02/18 09:00 Pulse Ox 94 L 06/02/18 09:00 Weight - Most Recent: 78.925 kg I&O - Last 24 hours: Intake & Output 06/03/18 06/03/18 06/03/18 06:59 14:59 22:59 Intake Total 240 Output Total 250 300 Balance -250 240 -300 Med Orders - Current: Current Medications Acetaminophen (Tylenol Extra Strength) 1,000 mg PO TID [facility] Last Admin: 06/03/18 15:31 Dose: Not Given Aspirin (Halfprin) 81 mg PO WITHBREAKFAST [facility] Last Admin: 06/03/18 09:03 Dose: 81 mg Cefdinir (Omnicef) 300 mg PO BID [facility] Stop: 06/09/18 20:01 Last Admin: 06/03/18 15:28 Dose: 300 mg Sertraline 25mg (Own (Supply)) 0 mg PO DAILY [facility] Last Admin: 06/03/18 09:03 Dose: 25 mg Ondansetron HCl (Zofran Odt) 4 mg PO Q8H PRN PRN Reason: Nausea/Vomiting Last Admin: 04/20/18 20:09 Dose: 4 mg Potassium Phos/Sodium Phos (Phos-Nak Powder) 1 each PO TID [facility] Last Admin: 06/03/18 15:28 Dose: 1 each Senna/Docusate Sodium (Senna Plus) 1 tab PO QID PRN PRN Reason: Constipation Simethicone (Simethicone) 80 mg PO TID [facility] Last Admin: 06/03/18 15:28 Dose: 80 mg Discontinued Medications Acetaminophen (Tylenol Extra Strength) 500 mg PO Q6H PRN PRN Reason: Pain/Fever Last Admin: 04/29/18 08:54 Dose: 500 mg Amoxicillin/Clavulanate Potassium (Augmentin 875 Mg/125 Mg) 1 tab PO BID [facility] Stop: 03/16/18 20:01 Last Admin: 03/11/18 08:42 Dose: 1 tab Amoxicillin/Clavulanate Potassium (Augmentin 875 Mg/125 Mg) 1 tab PO Q12HR [facility] Stop: 04/12/18 20:01 Last Admin: 04/12/18 21:00 Dose: 1 tab Amoxicillin/Clavulanate Potassium (Augmentin 875 Mg/125 Mg) 1 tab PO Q12HR [facility] Stop: 04/28/18 20:01 Last Admin: 04/28/18 19:53 Dose: 1 tab Aspirin (Aspirin) 81 mg PO WITHBREAKFAST [facility] Last Admin: 03/06/18 08:54 Dose: 81 mg Cefdinir (Omnicef) 300 mg PO BID [facility] Stop: 03/29/18 20:01 Last Admin: 03/26/18 09:53 Dose: 300 mg Enoxaparin Sodium (Lovenox) 40 mg SUBCUT DAILY [facility] Enoxaparin Sodium (Lovenox) 40 mg SUBCUT 2000 [facility] Last Admin: 03/05/18 20:26 Dose: 40 mg Enoxaparin Sodium (Lovenox) 40 mg SUBCUT BEDTIME [facility] Last Admin: 03/10/18 20:12 Dose: 40 mg Neomycin/Polymyxin/Hydrocortisone (Cortisporin Otic Susp) 0.1 ml EARRT QID [facility] Last Admin: 04/22/18 16:22 Dose: Not Given Neomycin/Polymyxin/Hydrocortisone (Cortisporin Otic Susp) 0 ml EARRT QID [facility] Stop: 04/27/18 20:01 Last Admin: 04/27/18 19:28 Dose: 4 drop Amoxicillin/Clavulanate 875/125mg (Own Supply) 0 mg PO BID [facility] Stop: 03/16/18 20:01 Last Admin: 03/16/18 20:05 Dose: 875 mg Enoxaparin. 40mg/0. (4ml (Own Supply)) 0 mg SUBCUT BEDTIME [facility] Last Admin: 03/19/18 21:54 Dose: 40 mg Cefdinir.300mg (Own (Supply)) 0 mg PO BID [facility] Stop: 03/29/18 20:01 Last Admin: 03/30/18 22:36 Dose: 300 mg Non-Formulary Medication (Ofloxacin Solution 0.3%) 5 drp EARRT BID [facility] Stop: 04/21/18 20:01 Last Admin: 04/21/18 20:33 Dose: 5 drp Nystatin (Nystatin Crm) 1 gm TOP BID PRN PRN Reason: Rash Oxybutynin Chloride (Oxybutynin) 5 mg PO TID PRN PRN Reason: bladder spasm Oxycodone HCl (Oxycodone) 5 mg PO Q4H PRN PRN Reason: Pain Oxycodone HCl (Oxycodone) 2.5 mg PO Q4H PRN PRN Reason: Pain Sertraline HCl (Zoloft) 25 mg PO DAILY [facility] Last Admin: 03/11/18 08:42 Dose: 25 mg *Q Meaningful Use (DIS) - VTE *Q VTE Anticoagulation Contraindications: Med/TX Not Indicated/Need
[2018-06-03 17:41] VITALS: BP 135/59
== END 2018-06-03 17:55 | disposition short-term general hospital (02) | DRG 728 ==
LOC: VM.MS 13:57
PROVIDERS: ADMIT Family Medicine; ATTEND Family Medicine
DX: N49.3 Fournier gangrene (principal); C18.9 Malignant neoplasm of colon, unspecified; N49.2 Inflammatory disorders of scrotum; I10 Essential (primary) hypertension; H91.90 Unspecified hearing loss, unspecified ear; Z66 Do not resuscitate; E78.00 Pure hypercholesterolemia, unspecified; E11.21 Type 2 diabetes mellitus with diabetic nephropathy; N40.0 Benign prostatic hyperplasia without lower urinary tract symptoms; E66.9 Obesity, unspecified; F32.9 Major depressive disorder, single episode, unspecified; S31.30XA Unspecified open wound of scrotum and testes, initial encounter; N32.89 Other specified disorders of bladder; L98.8 Other specified disorders of the skin and subcutaneous tissue; E11.42 Type 2 diabetes mellitus with diabetic polyneuropathy; E78.5 Hyperlipidemia, unspecified; H60.91 Unspecified otitis externa, right ear; Z79.82 Long term (current) use of aspirin; Z79.899 Other long term (current) drug therapy; Z85.46 Personal history of malignant neoplasm of prostate; Z86.73 Personal history of transient ischemic attack (TIA), and cerebral infarction without residual deficits; Z68.28 Body mass index [BMI] 28.0-28.9, adult
CPT/HCPCS: 72192; A9270-GY; J1650

== ENCOUNTER 2018-06-06 09:44 | Inpatient (IN) | payer MEDICARE, BC ==
--- NOTE | 2018-06-06 19:00 | PCM.HP ---
H&P History of Present Illness - General Date of Service: 06/06/18 Admit Problem/Dx: Admission Diagnosis/Problem Admission Diagnosis/Problem Neoplasm of rectum Source of Information: Patient History Limitations: Reports: No Limitations - History of Present Illness Initial Comments - Free Text/Narative: Mr. Banda is a 77 yo male who returns to [facility] hospital bed today from [place] after he was transferred earlier in the week for I&D of a scrotal abscess. There was concern for necrotizing fasciitis on CT scan; therefore, he was transferred to [place] for further evaluation. He was taken to the OR and it was determined he just had a recurrence of a scrotal abscess but no necrotizing fasciitis. I&D was performed and he was treated with antibiotics. He has returned today on oral antibiotics as he did well post-operatively. His hospitalization was otherwise uncomplicated. He has some discomfort after sitting all the way on the ride from [place]. He otherwise denies concerns. He has had no fever or chills. His appetite is good. He is happy to return to [place] from [place]. - Related Data Allergies/Adverse Reactions: Allergies Allergy/AdvReac Type Severity Reaction Status Date / Time No Known Allergies Allergy Verified 03/05/18 14:58 Home Medications: Home Meds Sennosides/Docusate Sodium [Senna-Docusate Sodium Tablet] 2 tab PO DAILY [History] Sertraline [Zoloft] 25 mg PO DAILY 11/26/17 [History] Simethicone 80 mg PO TID tab.chew 02/28/18 [Rx] Aspirin 81 mg PO DAILY@0800 03/05/18 [History] Ciprofloxacin [Ciprofloxacin HCl] 500 mg PO BID 06/06/18 [History] metroNIDAZOLE [Flagyl] 500 mg PO TID 06/06/18 [History] Past Medical History HEENT History: Reports: Hard of Hearing Cardiovascular History: Reports: High Cholesterol, Hypertension Respiratory History: Reports: None Gastrointestinal History: Reports: Other (See Below) Other Gastrointestinal History: Umbilical hernia. pseudomembranous colitis Genitourinary History: Reports: BPH, Diabetic Nephropathy, Other (See Below) Other Genitourinary History: urosepsis. neoplasm of prostate Musculoskeletal History: Reports: None Neurological History: Reports: CVA, Neuropathy, Diabetic Psychiatric History: Reports: Depression Endocrine/Metabolic History: Reports: Diabetes, Type II, Obesity/BMI 30+ Hematologic History: Reports: None Immunologic History: Reports: None Oncologic (Cancer) History: Reports: Colon, Prostate Dermatologic History: Reports: None - Infectious Disease History Infectious Disease History: Reports: None - Past Surgical History HEENT Surgical History: Reports: None Cardiovascular Surgical History: Reports: None GI Surgical History: Reports: Colonoscopy, Colostomy, Hernia Repair/Other, Other (See Below) Other GI Surgeries/Procedures: rectal procedure Male Surgical History: Reports: Other (See Below) Other Male Surgeries/Procedures: cystoscopy with direct vision urethrotomy. laparotomy. prostate surgery Social & Family History - Family History Endocrine/Metabolic: Reports: Diabetes, type II Oncologic: Reports: Prostate - Tobacco Use Smoking Status *Q: Never Smoker Second Hand Smoke Exposure: No - Caffeine Use Caffeine Use: Reports: Coffee - Alcohol Use Alcohol Use History: No - Recreational Drug Use Recreational Drug Use: No - Living Situation & Occupation Living situation: Reports: , with Significant Other Occupation: Retired ([employer]) H&P Review of Systems - Review of Systems: Review Of Systems: See Below General: Reports: No Symptoms HEENT: Reports: No Symptoms Pulmonary: Reports: No Symptoms Cardiovascular: Reports: No Symptoms Gastrointestinal: Reports: No Symptoms Genitourinary: Reports: No Symptoms Musculoskeletal: Reports: No Symptoms Skin: Reports: No Symptoms Psychiatric: Reports: No Symptoms Neurological: Reports: No Symptoms Exam - Exam Exam: See Below - Vital Signs Vital Signs: Last Vital Signs Temp 37.7 C 06/06/18 17:53 Pulse 66 06/06/18 17:53 Resp 18 06/06/18 14:05 BP 146/63 H 06/06/18 17:53 Pulse Ox 96 06/06/18 17:53 Weight: 82.1 kg - Exam General: Alert, Cooperative HEENT: Mucosa Moist & [place], Pupils Equal, Pupils Reactive Neck: Supple, Trachea Midline. No: Lymphadenopathy, Thyromegaly Lungs: Clear to Auscultation, Normal Respiratory Effort Cardiovascular: Regular Rate, Regular Rhythm, Normal S1, Normal S2 GI/Abdominal Exam: Normal Bowel Sounds, Soft, Non-Tender, No Organomegaly, No Distention, No Mass Extremities: No Pedal Edema, Normal Capillary Refill Peripheral Pulses: 2+: Radial (L), Radial (R) Skin: Warm, Dry, Intact *Q Meaningful Use (ADM) - VTE *Q VTE Anticoagulation Contraindications: Med/TX Not Indicated/Need - Problem List (1) Abscess of scrotum SNOMED Code(s): 55376449 ICD Code: N49.2 - INFLAMMATORY DISORDERS OF SCROTUM Status: Acute Current Visit: No (2) Wound, open, scrotum or testes SNOMED Code(s): 596807758 ICD Code: S31.30XA - UNSPECIFIED OPEN WOUND OF SCROTUM AND TESTES, INIT ENCNTR Status: Chronic Current Visit: No Qualifiers: Encounter type: subsequent encounter Qualified Code(s): S31.30XD - Unspecified open wound of scrotum and testes, subsequent encounter (3) Colon cancer SNOMED Code(s): 005862818 ICD Code: C18.9 - MALIGNANT NEOPLASM OF COLON, UNSPECIFIED Status: Chronic Current Visit: No Qualifiers: Colon location: unspecified part of colon Qualified Code(s): C18.9 - Malignant neoplasm of colon, unspecified Problem List Initiated/Reviewed/Updated: Yes Orders Last 24hrs: Active Orders 24 hr Category Date Time Status Admission Status [Patient Status] [ADT] Routine ADT 06/06/18 11:57 Active Communication Order [RC] 08,20 Care 06/06/18 14:28 Active Communication Order [RC] DAILY Care 06/06/18 12:20 Active Communication Order [RC] Th@10 Care 06/06/18 14:21 Active Notify Provider Vital Signs [RC] .PRN Care 06/06/18 17:44 Active Oxygen Therapy [RC] .PRN Care 06/06/18 17:43 Active Vital Signs [RC] 06,18 Care 06/06/18 17:43 Active Regular Diet [DIET] Diet 06/06/18 Dinner Active CULTURE MRSA SURVEY [RM] Routine Lab 06/06/18 14:04 Received Aspirin Med 06/07/18 08:00 Active 81 mg PO DAILY@0800 Ciprofloxacin [Ciprofloxacin HCl] Med 06/06/18 20:00 Active 500 mg PO BID Docusate Sodium/Sennosides [Senna Plus] Med 06/07/18 08:00 Active 2 tab PO DAILY Sertraline [Zoloft] Med 06/07/18 08:00 Active 25 mg PO DAILY Simethicone Med 06/06/18 20:00 Active 80 mg PO TID metroNIDAZOLE [Flagyl] Med 06/06/18 20:00 Active 500 mg PO TID Anticoagulation Contraindications VTE [AST] Routine Oth 06/06/18 17:43 Ordered Resuscitation Status Routine Resus Stat 06/06/18 17:43 Ordered Medication Orders Aspirin (Aspirin) 81 mg PO DAILY@0800 [facility] Ciprofloxacin (Ciprofloxacin Hcl) 500 mg PO BID [facility] Metronidazole (Flagyl) 500 mg PO TID [facility] Senna/Docusate Sodium (Senna Plus) 2 tab PO DAILY [facility] Sertraline HCl (Zoloft) 25 mg PO DAILY [facility] Simethicone (Simethicone) 80 mg PO TID [facility] Assessment/Plan Comment:: 77 yo male admitted back to swing bed for ongoing wound cares in the setting of a recurrent scrotal abscess in the setting of a chronic scrotal wound. #1 Abscess of scrotum #2 Scrotal wound #3 Colon Cancer - Patient is admitted back to swing bed. - Continue current wound cares. - He is anticipating remaining admitted at [facility] until he passes away. - Complete the course of antibiotics. - Regular diet. - He is not requiring any medications for pain. - Continue all medications as per hospital discharge medication list. - Code status is DNR/DNI - reviewed with patient on admission. - No indication for VTE prophylaxis given current goals of care.
[2018-06-06] MEDS: Ciprofloxacin 500 MG Tab PO SCH (19:08)
[2018-06-06] MEDS: Simethicone 80 MG Tab.Chew PO SCH (19:08)
[2018-06-06] MEDS: metroNIDAZOLE 500 MG Tab PO SCH (19:08)
[2018-06-07] MEDS: Ciprofloxacin 500 MG Tab PO SCH ×2 (09:39→21:00)
[2018-06-07] MEDS: Aspirin 81 MG Tab.Chew PO SCH (09:39)
[2018-06-07] MEDS: Simethicone 80 MG Tab.Chew PO SCH ×3 (09:39→21:00)
[2018-06-07] MEDS: metroNIDAZOLE 500 MG Tab PO SCH ×3 (09:39→21:00)
[2018-06-07] MEDS: Sertraline 25 MG Tab PO SCH (09:39)
[2018-06-08] MEDS: Simethicone 80 MG Tab.Chew PO SCH ×3 (09:14→19:05)
[2018-06-08] MEDS: Ciprofloxacin 500 MG Tab PO SCH ×2 (09:14→19:05)
[2018-06-08] MEDS: Sertraline 25 MG Tab PO SCH (09:14)
[2018-06-08] MEDS: Aspirin 81 MG Tab.Chew PO SCH (09:14)
[2018-06-08] MEDS: metroNIDAZOLE 500 MG Tab PO SCH ×3 (09:14→19:06)
[2018-06-08] MEDS: Nystatin Crm 30 GM Tube TOP SCH ×2 (10:23→19:06)
[2018-06-09] MEDS: Nystatin Crm 30 GM Tube TOP SCH ×2 (10:13→19:12)
[2018-06-09] MEDS: Ciprofloxacin 500 MG Tab PO SCH ×2 (10:14→19:12)
[2018-06-09] MEDS: metroNIDAZOLE 500 MG Tab PO SCH ×3 (10:14→19:12)
[2018-06-09] MEDS: Aspirin 81 MG Tab.Chew PO SCH (10:14)
[2018-06-09] MEDS: Simethicone 80 MG Tab.Chew PO SCH ×3 (10:17→19:12)
[2018-06-09] MEDS: Sertraline 25 MG Tab PO SCH (10:17)
[2018-06-10] MEDS: metroNIDAZOLE 500 MG Tab PO SCH ×3 (08:55→20:42)
[2018-06-10] MEDS: Simethicone 80 MG Tab.Chew PO SCH ×3 (08:55→20:42)
[2018-06-10] MEDS: Sertraline 25 MG Tab PO SCH (08:55)
[2018-06-10] MEDS: Ciprofloxacin 500 MG Tab PO SCH ×2 (08:55→20:42)
[2018-06-10] MEDS: Aspirin 81 MG Tab.Chew PO SCH (08:55)
[2018-06-10] MEDS: Nystatin Crm 30 GM Tube TOP SCH ×2 (08:56→20:43)
[2018-06-11] MEDS: Nystatin Crm 30 GM Tube TOP SCH ×2 (08:43→20:43)
[2018-06-11] MEDS: Ciprofloxacin 500 MG Tab PO SCH ×2 (08:44→20:42)
[2018-06-11] MEDS: metroNIDAZOLE 500 MG Tab PO SCH ×3 (08:44→20:42)
[2018-06-11] MEDS: Sertraline 25 MG Tab PO SCH (08:44)
[2018-06-11] MEDS: Aspirin 81 MG Tab.Chew PO SCH (08:44)
[2018-06-11] MEDS: Simethicone 80 MG Tab.Chew PO SCH ×3 (08:44→20:42)
[2018-06-12] MEDS: Aspirin 81 MG Tab.Chew PO SCH (09:15)
[2018-06-12] MEDS: Simethicone 80 MG Tab.Chew PO SCH ×3 (09:15→20:03)
[2018-06-12] MEDS: Sertraline 25 MG Tab PO SCH (09:15)
[2018-06-12] MEDS: Ciprofloxacin 500 MG Tab PO SCH ×2 (09:15→20:02)
[2018-06-12] MEDS: Nystatin Crm 30 GM Tube TOP SCH ×2 (09:15→20:03)
[2018-06-12] MEDS: metroNIDAZOLE 500 MG Tab PO SCH ×3 (09:15→20:03)
[2018-06-13] MEDS: Nystatin Crm 30 GM Tube TOP SCH ×2 (09:04→21:27)
[2018-06-13] MEDS: Aspirin 81 MG Tab.Chew PO SCH (09:04)
[2018-06-13] MEDS: Sertraline 25 MG Tab PO SCH (09:05)
[2018-06-13] MEDS: Simethicone 80 MG Tab.Chew PO SCH ×3 (09:05→21:27)
[2018-06-13] MEDS: Ciprofloxacin 500 MG Tab PO SCH ×2 (09:05→21:27)
[2018-06-13] MEDS: metroNIDAZOLE 500 MG Tab PO SCH ×3 (09:05→21:27)
[2018-06-14] MEDS: metroNIDAZOLE 500 MG Tab PO SCH ×3 (08:49→21:51)
[2018-06-14] MEDS: Simethicone 80 MG Tab.Chew PO SCH ×3 (08:49→21:51)
[2018-06-14] MEDS: Sertraline 25 MG Tab PO SCH (08:50)
[2018-06-14] MEDS: Ciprofloxacin 500 MG Tab PO SCH ×2 (08:50→21:51)
[2018-06-14] MEDS: Aspirin 81 MG Tab.Chew PO SCH (08:50)
[2018-06-14] MEDS: Nystatin Crm 30 GM Tube TOP SCH ×2 (08:51→21:50)
[2018-06-15] MEDS: Aspirin 81 MG Tab.Chew PO SCH (09:33)
[2018-06-15] MEDS: Sertraline 25 MG Tab PO SCH (09:33)
[2018-06-15] MEDS: Ciprofloxacin 500 MG Tab PO SCH ×2 (09:33→20:03)
[2018-06-15] MEDS: metroNIDAZOLE 500 MG Tab PO SCH ×3 (09:33→20:03)
[2018-06-15] MEDS: Simethicone 80 MG Tab.Chew PO SCH ×3 (09:33→20:03)
[2018-06-16] MEDS: Ciprofloxacin 500 MG Tab PO SCH ×2 (08:42→20:17)
[2018-06-16] MEDS: metroNIDAZOLE 500 MG Tab PO SCH ×3 (08:43→20:17)
[2018-06-16] MEDS: Simethicone 80 MG Tab.Chew PO SCH ×3 (08:43→20:17)
[2018-06-16] MEDS: Aspirin 81 MG Tab.Chew PO SCH (08:43)
[2018-06-16] MEDS: Sertraline 25 MG Tab PO SCH (08:43)
[2018-06-17] MEDS: Simethicone 80 MG Tab.Chew PO SCH ×3 (09:16→20:56)
[2018-06-17] MEDS: metroNIDAZOLE 500 MG Tab PO SCH ×3 (09:16→20:56)
[2018-06-17] MEDS: Aspirin 81 MG Tab.Chew PO SCH (09:16)
[2018-06-17] MEDS: Sertraline 25 MG Tab PO SCH (09:16)
[2018-06-17] MEDS: Ciprofloxacin 500 MG Tab PO SCH ×2 (09:16→20:56)
[2018-06-18] MEDS: Aspirin 81 MG Tab.Chew PO SCH (09:01)
[2018-06-18] MEDS: Ciprofloxacin 500 MG Tab PO SCH ×2 (09:01→20:21)
[2018-06-18] MEDS: Sertraline 25 MG Tab PO SCH (09:01)
[2018-06-18] MEDS: Simethicone 80 MG Tab.Chew PO SCH ×3 (09:01→20:21)
[2018-06-18] MEDS: metroNIDAZOLE 500 MG Tab PO SCH ×3 (09:01→20:21)
[2018-06-19] MEDS: Ciprofloxacin 500 MG Tab PO SCH ×2 (08:38→20:33)
[2018-06-19] MEDS: Simethicone 80 MG Tab.Chew PO SCH ×3 (08:39→20:33)
[2018-06-19] MEDS: Aspirin 81 MG Tab.Chew PO SCH (08:39)
[2018-06-19] MEDS: metroNIDAZOLE 500 MG Tab PO SCH ×3 (08:39→20:33)
[2018-06-19] MEDS: Sertraline 25 MG Tab PO SCH (08:39)
[2018-06-20] MEDS: metroNIDAZOLE 500 MG Tab PO SCH ×2 (08:57→14:24)
[2018-06-20] MEDS: Simethicone 80 MG Tab.Chew PO SCH ×3 (08:57→20:55)
[2018-06-20] MEDS: Aspirin 81 MG Tab.Chew PO SCH (08:57)
[2018-06-20] MEDS: Sertraline 25 MG Tab PO SCH (08:58)
[2018-06-20] MEDS: Ciprofloxacin 500 MG Tab PO SCH (08:58)
[2018-06-21] MEDS: Simethicone 80 MG Tab.Chew PO SCH ×3 (10:12→20:44)
[2018-06-21] MEDS: Aspirin 81 MG Tab.Chew PO SCH (10:12)
[2018-06-21] MEDS: Sertraline 25 MG Tab PO SCH (10:12)
[2018-06-22] MEDS: Simethicone 80 MG Tab.Chew PO SCH ×3 (09:04→20:28)
[2018-06-22] MEDS: Sertraline 25 MG Tab PO SCH (09:05)
[2018-06-22] MEDS: Aspirin 81 MG Tab.Chew PO SCH (09:05)
[2018-06-23] MEDS: Simethicone 80 MG Tab.Chew PO SCH ×3 (09:41→20:22)
[2018-06-23] MEDS: Aspirin 81 MG Tab.Chew PO SCH (09:41)
[2018-06-23] MEDS: Sertraline 25 MG Tab PO SCH (09:41)
[2018-06-24] MEDS: Sertraline 25 MG Tab PO SCH (09:38)
[2018-06-24] MEDS: Simethicone 80 MG Tab.Chew PO SCH ×3 (09:38→20:08)
[2018-06-24] MEDS: Aspirin 81 MG Tab.Chew PO SCH (09:38)
[2018-06-25] MEDS: Sertraline 25 MG Tab PO SCH (08:53)
[2018-06-25] MEDS: Aspirin 81 MG Tab.Chew PO SCH (08:53)
[2018-06-25] MEDS: Simethicone 80 MG Tab.Chew PO SCH ×2 (08:54→11:43)
[2018-06-25 13:02] VITALS: BP 140/71
--- NOTE | 2018-06-25 13:18 | PCM.DCSUM1 ---
Discharge Summary - Hospital Course Brief History: Mr. Banda is a 77 yo male who was admitted for ongoing wound cares and antibiotics related to an infection secondary to a chronic scrotal wound for which he had been transferred to [place] for incision and drainage. - Discharge Data Discharge Date: 06/25/18 Discharge Disposition: DC/Tfer to [facility] 02 Condition: Good - Discharge Diagnosis/Problem(s) (1) Abscess of scrotum SNOMED Code(s): 49981936 ICD Code: N49.2 - INFLAMMATORY DISORDERS OF SCROTUM Status: Acute Current Visit: No (2) Wound, open, scrotum or testes SNOMED Code(s): 278664485 ICD Code: S31.30XA - UNSPECIFIED OPEN WOUND OF SCROTUM AND TESTES, INIT ENCNTR Status: Chronic Current Visit: No Qualifiers: Encounter type: subsequent encounter Qualified Code(s): S31.30XD - Unspecified open wound of scrotum and testes, subsequent encounter (3) Colon cancer SNOMED Code(s): 259334225 ICD Code: C18.9 - MALIGNANT NEOPLASM OF COLON, UNSPECIFIED Status: Chronic Current Visit: No Qualifiers: Colon location: unspecified part of colon Qualified Code(s): C18.9 - Malignant neoplasm of colon, unspecified (4) Perirectal abscess SNOMED Code(s): 37247449 ICD Code: K61.1 - RECTAL ABSCESS Status: Acute Current Visit: Yes - Patient Summary/Data Operative Procedure(s) Performed: none Complications: none Consults: none Labs Pending at D/C: none Recommended Follow-up Testing/Procedures: none Planned Operative Procedure(s) after DC: none Hospital Course: Patient completed his antibiotics on Saturday, 06/20. Ever since then, he has had increasing swelling of the scrotum associated with increased pain and redness as well. He has had less drainage with his twice daily dressing changes along with this. He has had no fever or chills. On exam today, he clearly has recurrence of a scrotal abscess and there is concern for a perirectal abscess now as well based on the induration and edema gustavo-rectally. Therefore, it is recommended he be evaluated by a surgeon today. I did contact [facility] via [facility] and they have accepted him as a direct admission. - Discharge Plan Home Medications: Home Meds Sennosides/Docusate Sodium [Senna-Docusate Sodium Tablet] 2 tab PO DAILY [History] Sertraline [Zoloft] 25 mg PO DAILY 11/26/17 [History] Simethicone 80 mg PO TID tab.chew 02/28/18 [Rx] Aspirin 81 mg PO DAILY@0800 03/05/18 [History] Ciprofloxacin [Ciprofloxacin HCl] 500 mg PO BID 06/06/18 [History] metroNIDAZOLE [Flagyl] 500 mg PO TID 06/06/18 [History] - Discharge Summary/Plan Comment DC Time >30 min.: No - General Info Date of Service: 06/25/18 Subjective Update: Patient with increased swelling, redness, and pain in the scrotum and rectal area ever since antibiotic completed but especially over the past 24 hours. - Patient Data Vitals - Most Recent: Last Vital Signs Temp 37.1 C 06/25/18 13:01 Pulse 75 06/25/18 13:01 Resp 18 06/25/18 13:01 BP 140/71 06/25/18 13:01 Pulse Ox 95 06/25/18 13:01 Weight - Most Recent: 82.1 kg I&O - Last 24 hours: Intake & Output 06/24/18 06/25/18 06/25/18 22:59 06:59 14:59 Intake Total 240 180 Output Total 250 450 Balance -10 -450 180 Med Orders - Current: Current Medications Aspirin (Aspirin) 81 mg PO DAILY@0800 [facility] Last Admin: 06/25/18 08:53 Dose: 81 mg Senna/Docusate Sodium (Senna Plus) 2 tab PO DAILY [facility] Last Admin: 06/25/18 08:53 Dose: 2 tab Sertraline HCl (Zoloft) 25 mg PO DAILY [facility] Last Admin: 06/25/18 08:53 Dose: 25 mg Simethicone (Simethicone) 80 mg PO TID [facility] Last Admin: 06/25/18 11:43 Dose: 80 mg Discontinued Medications Ciprofloxacin (Ciprofloxacin Hcl) 500 mg PO BID [facility] Stop: 06/20/18 08:01 Last Admin: 06/20/18 08:58 Dose: 500 mg Metronidazole (Flagyl) 500 mg PO TID [facility] Stop: 06/20/18 12:01 Last Admin: 06/20/18 14:24 Dose: 500 mg Nystatin (Nystatin Crm) 1 gm TOP BID [facility] Stop: 06/14/18 20:01 Last Admin: 06/14/18 21:50 Dose: 1 applic - Exam General: Reports: Alert, Cooperative, No Acute Distress (Male) Exam: Scrotal Swelling, Scrotum Tenderness (L), Scrotum Tenderness (R) Rectal (Males) Exam: Perirectal Abscess *Q Meaningful Use (DIS) - VTE *Q VTE Anticoagulation Contraindications: Med/TX Not Indicated/Need
== END 2018-06-25 16:15 | disposition short-term general hospital (02) | DRG 949 ==
LOC: VM.MS 14:05
PROVIDERS: ADMIT Family Medicine; ATTEND Family Medicine
DX: S31.30XD Unspecified open wound of scrotum and testes, subsequent encounter (principal); K61.1 Rectal abscess; N49.2 Inflammatory disorders of scrotum; H91.90 Unspecified hearing loss, unspecified ear; Z66 Do not resuscitate; E78.00 Pure hypercholesterolemia, unspecified; I10 Essential (primary) hypertension; N40.0 Benign prostatic hyperplasia without lower urinary tract symptoms; E11.21 Type 2 diabetes mellitus with diabetic nephropathy; E11.40 Type 2 diabetes mellitus with diabetic neuropathy, unspecified; F32.9 Major depressive disorder, single episode, unspecified; E66.9 Obesity, unspecified; Z85.038 Personal history of other malignant neoplasm of large intestine; Z79.82 Long term (current) use of aspirin; Z85.46 Personal history of malignant neoplasm of prostate; Z86.73 Personal history of transient ischemic attack (TIA), and cerebral infarction without residual deficits; Z79.899 Other long term (current) drug therapy; Z79.2 Long term (current) use of antibiotics; Z93.3 Colostomy status; Z68.27 Body mass index [BMI] 27.0-27.9, adult
CPT/HCPCS: A9270-GY

== ENCOUNTER 2018-06-30 09:12 | Inpatient (IN) | payer MEDICARE, BC ==
--- NOTE | 2018-06-30 19:56 | PCM.HP ---
H&P History of Present Illness - General Date of Service: 06/30/18 Admit Problem/Dx: Admission Diagnosis/Problem Admission Diagnosis/Problem Abscess of scrotum Source of Information: Patient History Limitations: Reports: No Limitations - History of Present Illness Initial Comments - Free Text/Narative: Mr. Banda is a 77 yo male who returns to swing bed today after another hospitalization in [place] 06/26-06/30. It was felt last week that his scrotal swelling, redness, and pain were progressively worsening while the drainage from the scrotal wound was lessening. Therefore, he was transferred back to [place] for surgical evaluation and a bedside I&D was performed on 06/26. Material drained was serosanguineous rather than purulent and cultures returned negative. Therefore, no further intervention was needed. He was offered the opportunity to look for a facility in [place] upon discharge to avoid having to travel all the way back and forth if further issues came up but he declined. He notes some discomfort after having a "bumpy" ride back from [place] today but has now settled into his bed nicely. He denies any other concerns today. He is frustrated about having to go to [place] to have the surgery evaluations when these needs arise. - Related Data Allergies/Adverse Reactions: Allergies Allergy/AdvReac Type Severity Reaction Status Date / Time No Known Allergies Allergy Verified 03/05/18 14:58 Home Medications: Home Meds Sennosides/Docusate Sodium [Senna-Docusate Sodium Tablet] 2 tab PO DAILY [History] Sertraline [Zoloft] 25 mg PO DAILY 11/26/17 [History] Simethicone 80 mg PO TID tab.chew 02/28/18 [Rx] Aspirin 81 mg PO DAILY@0800 03/05/18 [History] Past Medical History HEENT History: Reports: Hard of Hearing Cardiovascular History: Reports: High Cholesterol, Hypertension Respiratory History: Reports: None Gastrointestinal History: Reports: Other (See Below) Other Gastrointestinal History: Umbilical hernia. pseudomembranous colitis Genitourinary History: Reports: BPH, Diabetic Nephropathy, Other (See Below) Other Genitourinary History: urosepsis. neoplasm of prostate Musculoskeletal History: Reports: None Neurological History: Reports: CVA, Neuropathy, Diabetic Psychiatric History: Reports: Depression Endocrine/Metabolic History: Reports: Diabetes, Type II, Obesity/BMI 30+ Hematologic History: Reports: None Immunologic History: Reports: None Oncologic (Cancer) History: Reports: Colon, Prostate Dermatologic History: Reports: None - Infectious Disease History Infectious Disease History: Reports: None - Past Surgical History HEENT Surgical History: Reports: None Cardiovascular Surgical History: Reports: None GI Surgical History: Reports: Colonoscopy, Colostomy, Hernia Repair/Other, Other (See Below) Other GI Surgeries/Procedures: rectal procedure Male Surgical History: Reports: Other (See Below) Other Male Surgeries/Procedures: cystoscopy with direct vision urethrotomy. laparotomy. prostate surgery Social & Family History - Family History Endocrine/Metabolic: Reports: Diabetes, type II Oncologic: Reports: Prostate - Tobacco Use Smoking Status *Q: Never Smoker - Caffeine Use Caffeine Use: Reports: Coffee - Alcohol Use Alcohol Use in Last Twelve Months: No - Living Situation & Occupation Living situation: Reports: , with Significant Other Occupation: Retired ([employer]) H&P Review of Systems - Review of Systems: Review Of Systems: See Below General: Reports: No Symptoms HEENT: Reports: No Symptoms Pulmonary: Reports: No Symptoms Cardiovascular: Reports: No Symptoms Gastrointestinal: Reports: No Symptoms Genitourinary: Reports: No Symptoms Musculoskeletal: Reports: No Symptoms Skin: Reports: No Symptoms Psychiatric: Reports: No Symptoms Neurological: Reports: No Symptoms Exam - Exam Exam: See Below - Vital Signs Vital Signs: Last Vital Signs Temp 36.7 C 06/30/18 12:51 Pulse 82 06/30/18 12:51 Resp 20 06/30/18 12:51 BP 136/66 06/30/18 12:51 Pulse Ox 97 06/30/18 12:51 - Exam General: Alert, Oriented, Cooperative HEENT: Conjunctiva Clear, Mucosa Moist & [place], Posterior Pharynx Clear, Pupils Equal, Pupils Reactive Neck: Supple, Trachea Midline. No: Lymphadenopathy, Thyromegaly Lungs: Clear to Auscultation, Normal Respiratory Effort Cardiovascular: Regular Rate, Regular Rhythm, Normal S1, Normal S2 GI/Abdominal Exam: Normal Bowel Sounds, Soft, Non-Tender, No Organomegaly, No Distention, No Mass Extremities: Non-Tender, No Pedal Edema, Normal Capillary Refill Peripheral Pulses: 2+: Radial (L), Radial (R) Skin: Warm, Dry, Intact *Q Meaningful Use (ADM) - VTE *Q VTE Anticoagulation Contraindications: Med/TX Not Indicated/Need - Problem List (1) Abscess of scrotum SNOMED Code(s): 07574649 ICD Code: N49.2 - INFLAMMATORY DISORDERS OF SCROTUM Status: Acute Current Visit: No (2) Wound, open, scrotum or testes SNOMED Code(s): 993611584 ICD Code: S31.30XA - UNSPECIFIED OPEN WOUND OF SCROTUM AND TESTES, INIT ENCNTR Status: Chronic Current Visit: No Qualifiers: (3) Colon cancer SNOMED Code(s): 346365653 ICD Code: C18.9 - MALIGNANT NEOPLASM OF COLON, UNSPECIFIED Status: Chronic Current Visit: No Qualifiers: (4) Depressed mood SNOMED Code(s): 480176799 ICD Code: F32.9 - MAJOR DEPRESSIVE DISORDER, SINGLE EPISODE, UNSPECIFIED Status: Chronic Current Visit: No Problem List Initiated/Reviewed/Updated: Yes Orders Last 24hrs: Active Orders 24 hr Category Date Time Status Patient Status [ADT] Routine ADT 06/30/18 12:51 Active Notify Provider Vital Signs [RC] , Care 06/30/18 12:53 Active Oxygen Therapy [RC] .PRN Care 06/30/18 12:51 Active Up With Assistance [RC] 11,17 Care 06/30/18 12:51 Active Vital Signs [RC] ,18 Care 06/30/18 12:51 Active Regular Diet [DIET] Diet 06/30/18 Lunch Active CULTURE MRSA SURVEY [RM] Routine Lab 06/30/18 14:07 Received Acetaminophen [Tylenol] Med 06/30/18 11:32 Active 650 mg PO Q4H PRN Sertraline [Zoloft] Med 07/01/18 08:00 Active 25 mg PO DAILY Simethicone Med 06/30/18 20:00 Active 80 mg PO TID Anticoagulation Contraindications VTE [AST] Routine Oth 06/30/18 12:51 Ordered Resuscitation Status Routine Resus Stat 06/30/18 12:51 Ordered Medication Orders Acetaminophen (Tylenol) 650 mg PO Q4H PRN PRN Reason: Pain (mild 1-3) Sertraline HCl (Zoloft) 25 mg PO DAILY SRINIVAS Simethicone (Simethicone) 80 mg PO TID SRINIVAS Assessment/Plan Comment:: 77 yo male who returns to swing bed for ongoing wound cares after he had been transferred to [place] again with concerns for a recurrent scrotal abscess. #1 Scrotal Abscess #2 Open wound of scrotum - Continue BID dressing changes. - No current concerns for infection but will monitor closely. - Patient had been offered to stay in [place] where there would be greater surgery availability but he declined. Reviewed that scrotal abscesses would not be I&D'd by a non-surgeon so we will revisit transfer if need be for recurrence of infection. He voices understanding. #3 Colon Cancer - This continues to progress. - Continue supportive/comfort cares. #4 Depressed mood - Continue sertraline. Patient is admitted to swing bed for wound cares and general cares as he has gotten very weak and his would be unable to care for him at home. His medications will be continued as per his hospital discharge medication list. He will remain on swing bed likely until he dies. Code status is DNR/DNI. VTE prophylaxis is not indicated based on current goals of care.
[2018-06-30] MEDS: Simethicone 80 MG Tab.Chew PO SCH (21:11)
[2018-07-01] MEDS ORDERED: Sertraline 25 MG Tab PO SCH (08:00)
[2018-07-01] MEDS: Simethicone 80 MG Tab.Chew PO SCH ×3 (09:17→20:46)
[2018-07-01] MEDS: SERTRALINE 25 MG PO SCH (09:17)
--- OUTSIDE RECORDS SUMMARY | 2018-07-02 07:58 | XMSREPORT | Summary of Care ---
:1940 Author Organization [facility] Address [address] [place] [address] Care Team Providers Name Role Phone Maia Graves RN Unavailable Dhiraj Rodriguez MD Unavailable Kandice Hardin MD Primary Care Provider Provider, No Attributed RESOURCE Attributed Provider Unavailable Reason for Visit Auth/Cert Status Reason Specialty Diagnoses / Procedures Referred By Contact Referred To Contact Encounter Details Date Type Department Care Team Description 06/25/2018 - Hospital Encounter [facility] Kevin Enrique MD [address] [place] [address] [phone] Perineal abscess 06/30/2018 CENTER 8[facility] MED SURG Alejandra Perez MD [address], [place] [id number] F [address] [place], [place] [phone] Allergies No Known Allergiesdocumented as of this encounter (statuses as of 06/30/2018) Medications Medication Sig Dispensed Refills Start Date End Date Status acetaminophen Take 2 0 06/30/2018 Active (TYLENOL) 325 mg tablets (650 tabletIndications: mg) by mouth Perineal abscess Every 4 hours as needed for mild pain sertraline (ZOLOFT) Take 1 tablet 14 tablet 0 06/30/2018 Active 25 mg (25 mg) by tabletIndications: mouth 1 time Episode of recurrent per day major depressive disorder, unspecified depression episode severity (HCC) sertraline (ZOLOFT) Take 1 tablet 14 tablet 0 06/06/2018 06/30/2018 Discontinued 25 mg (25 mg) by tabletIndications: mouth 1 time Episode of recurrent per day for major depressive 14 days disorder, unspecified depression episode severity (HCC) documented as of this encounter (statuses as of 06/30/2018) Active Problems Problem Noted Date Perineal abscess 06/03/2018 Sepsis 11/11/2017 Scrotal abscess 11/11/2017 UTI (urinary tract infection) 11/11/2017 Incarcerated hernia 10/21/2016 Noncompliance 07/01/2013 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 Sepsis due to urinary tract infection 11/16/2008 Hx of Past Noncompliance 07/09/2008 Malignant neoplasm of prostate 06/28/2008 Diabetic neuropathy 05/28/2007 Hyperlipidemia 09/11/2006 Essential hypertension, benign 09/11/2006 Obesity 09/11/2006 Diabetes mellitus, type 2 09/11/2006 Overview: Noncompliance documented as of this encounter (statuses as of 06/30/2018) Immunizations Name Dates Previously Given Next Due FLU VACCINE HIGH DOSE 65YR+ 11/12/2017, 01/22/2014 Influenza Vaccine,unspecified 03/22/2007 Pneumococcal Polysaccharide PPSV23 03/22/2007 TDAP 05/11/2010 documented as of this encounter Social History Tobacco Use Types Packs/Day Years Used Date Never Smoker Smokeless Tobacco: Never Used Alcohol Use Drinks/Week oz/Week Comments No Sex Assigned at Date Recorded Not on file Job Start Date Occupation Industry Not on file Not on file Not on file Travel History Travel Start Travel End No recent travel history available. documented as of this encounter Last Filed Vital Signs Vital Sign Reading Time Taken Blood Pressure 131/71 06/30/2018 7:13 AM CDT Pulse 81 06/30/2018 7:13 AM CDT Temperature 37.4 C (99.3 F) 06/30/2018 7:13 AM CDT Respiratory Rate 16 06/30/2018 7:13 AM CDT Oxygen Saturation 94% 06/30/2018 7:13 AM CDT Inhaled Oxygen Concentration - - Weight 86.3 kg (190 lb 4.8 oz) 06/25/2018 6:41 PM CDT Height 172.7 cm (5' 8") 06/25/2018 6:41 PM CDT Body Mass Index 28.94 06/25/2018 6:41 PM CDT documented in this encounter Functional Status Functional Status Response Date of Assessment Is the person deaf or does he/she have serious difficulty Yes 06/25/2018 hearing? Is this person blind or does he/she have difficulty No 06/25/2018 seeing even when wearing glasses? Do you have difficulty with walking, balance, climbing No 06/25/2018 stairs, or had a fall in the last 3 months? Does the patient have difficulty dressing or bathing? Yes 06/25/2018 Because of a physical, mental, or emotional condition; Yes 06/25/2018 does this person have difficulty doing errands alone such as visiting a doctor's office or shopping? Cognitive Status Response Date of Assessment Because of a physical, mental, or emotional condition; Yes 06/25/2018 does this person have serious difficulty concentrating, remembering, or making decisions? documented as of this encounter Progress Notes Edson Nova MD - 06/29/2018 6:49 AM CDT Surgery Resident Daily Progress Note Name: Ankur Banda Admit Date: 06/25/2018 5:51 PM Interval Events/Subjective No events overnight. Temps running slightly above 100. He feels ok today. No new comlaints. Objective Vitals: 06/28/18 1939 06/28/18 2021 06/28/18 2246 06/29/18 0230 BP: 141/70 141/70 143/65 Pulse: 81 81 85 Resp: 18 18 17 Temp: 100.6 F (38.1 C) 100.4 F (38 C) 100.6 F (38.1 C) 99.4 F ( 37.4 C) SpO2: 96% 96% 96% Weight: Height: Physical Exam General: Alert and oriented. No acute distress. HEENT: Normocephalic and atraumatic. CV: regular rate, regular rhythm Lungs: Clear bilaterally, non-labored breathing Abdomen: Soft, non-tender, non-distended,stoolinostomy Perineal wounds not examined today IOs 675 mL urine 20 stool Labs from yesterday WBC is 9.6 HGB 10.7 PLT 432 K 3.7 Creatinine 0.7 Imaging None new Assessment 77yr year old male who ishis post bedside left scrotal incision and drainage on 06/26. Plan - No changes in plan from TRACS today. Awaiting placement on Saturday. - Paincontrol PRN -Bowel regimen -Follow cultures -Wound care/ostomy consult placed for twice-daily dressing changes -Diabetic diet -DVT prophylaxis: SubQ heparin Edson Nova MD General Surgery Resident, PGY-2 Pager [phone] Associated attestation - Kevin Enrique MD - 06/29/2018 4:15 PM CDTTRACS Surgery Attending Attestation: I saw and examined the patient with the TRACS team.I was physically available throughout the resident evaluation of the pt and concur with his management as reflected in his note. Bambi Dillon, PHARM TECHNOLOGY ADVISOR - 06/28/2018 4:54 PM CDT06/28/2018 16:54 -- Patient was seen by the pharmacy med reconciliation team and home medications have been reconciled and updated to match the patient's home usage. Patient denies use of other inhalers, creams/ointments, eye/ear drops, patches or injectables, OTC's, vitamins and/or herbal products. Bambi Dillon, ELVIRA TECHNOLOGY ADVISOR dson Nova MD - 06/28/2018 10:42 AM CDT Surgery Resident Daily Progress Note Name: Ankur Banda Admit Date: 06/25/2018 5:51 PM Interval Events/Subjective No events overnight. He feels well. Pain controlled. No complaints this am. Objective Vitals: 06/27/18 1603 06/27/18 1931 06/28/18 0014 06/28/18 0751 BP: 140/74 137/69 153/74 124/69 Pulse: 71 75 78 77 Resp: 16 16 16 18 Temp: 99.3 F (37.4 C) 99.8 F (37.7 C) 99 F (37.2 C) 98.2 F (36.8 C) SpO2: 96% 95% 97% 95% Weight: Height: Physical Exam General: Alert and oriented. No acute distress. HEENT: Normocephalic and atraumatic. CV: regular rate, regular rhythm Lungs: Clear bilaterally, non-labored breathing Abdomen: Soft, non-tender, non-distended,stoolinostomy Perineal wounds not examined today IOs 250 mL urine/24 hours Labs Lab Results Component Value Date WBC 9.6 06/28/2018 NUCRBC 0 06/28/2018 RBC 3.95 (L) 06/28/2018 HEMOGLOBIN 10.7 (L) 06/28/2018 HEMATOCRIT 34.2 (L) 06/28/2018 MCV 86.6 06/28/2018 MCH 27.1 06/28/2018 MCHC 31.3 (L) 06/28/2018 RDW 13.1 07/10/2012 PLTCOUNT 432 (H) 06/28/2018 NEUTROPCT 77.2 06/28/2018 LYMPHSPCT 11.2 06/28/2018 MONOSPCT 8.7 06/28/2018 EOSPCT 2.6 06/28/2018 BASOPHILPCT 0.3 06/28/2018 Lab Results Component Value Date GLUCOSE 125 (H) 06/28/2018 BUN 10 06/28/2018 CREATSERUM 0.70 (L) 06/28/2018 BCRATIO 14.3 06/28/2018 NA 137 06/28/2018 POTASSIUM 3.7 06/28/2018 CL 103 06/28/2018 CO2 30 (H) 06/28/2018 CA 8.0 (L) 06/28/2018 EGFR >90 06/28/2018 EGFRAF >90 06/28/2018 Imaging None today Assessment 77yr year old male who ishis post bedside left scrotal incision and drainage on 06/26. Plan - No changes in plan from TRACS today. Awaiting placement on Saturday. - Paincontrol PRN -Bowel regimen -Follow cultures -Wound care/ostomy consult placed for twice-daily dressing changes -Diabetic diet -DVT prophylaxis: SubQ heparin Edson Nova MD General Surgery Resident, PGY-2 Pager [phone] Associated attestation - Kevin Enrique MD - 06/29/2018 4:34 PM CDTTRA Surgery Attending Attestation: I saw and examined the patient with the TRACS team.I was physically available throughout the resident evaluation of the pt and concur with his management as reflected in his note. Chriss Hayden DPM - 06/27/2018 5:28 AM CDT Surgery Resident Daily Progress Note Name: Ankur Banda Admit Date: 06/25/2018 5:51 PM CSN: [id number] CODE STATUS: DNR Interval Events/Subjective Seen this morning laying comfortably bed. No acute distress. No overnight events. Objective Vitals: 06/26/18 1607 06/26/18 1709 06/26/18 1958 06/27/18 0015 BP: 139/72 132/63 143/75 144/79 Pulse: 80 83 83 77 Resp: 16 16 18 16 Temp: 98.7 F (37.1 C) 99.5 F (37.5 C) 99.6 F (37.6 C) 99.1 F ( 37.3 C) SpO2: 94% 96% 95% 96% Weight: Height: Physical Exam General: Alert and oriented. No acute distress. HEENT: Normocephalic and atraumatic. CV: regular rate, regular rhythm Lungs: Clear bilaterally, non-labored breathing Abdomen: Soft, non-tender, non-distended, stool in ostomy : Suprapubic catheter draining urine. Mild tenderness L>R. Dressing/Incision:1/4 inch packing gauze and reinforced with ABD pads. Extremities: Warm and perfused. Date 06/26/18699 - 06/27/1865806/27/18699 - 06/28/18 0659 Shift 3300-3669 5897-7943 24 Hour Total 3518-9588 6081-7369 24 Hour Total INTAKE Oral 240 240 480 P.O. 240 240 480 IV 10 10 IV Meds/Flushes 10 10 I.V. 0 0 Shift Total 240 250 490 OUTPUT Urine 1000 1000 Urine 1000 1000 Stool 350 200 550 Unmeasured Stool Occurrence 1 x 0 x 1 x Output amount (mL) (Colostomy LLQ) 350 200 550 Shift Total 350 1200 1550 NET -110 950 -1060 Weight (kg) 86.3 86.3 86.3 86.3 86.3 86.3 Labs Lab Results Component Value Date WBC 10.8 06/25/2018 NUCRBC 0 06/25/2018 RBC 4.19 (L) 06/25/2018 HEMOGLOBIN 11.3 (L) 06/25/2018 HEMATOCRIT 36.7 (L) 06/25/2018 MCV 87.6 06/25/2018 MCH 27.0 06/25/2018 MCHC 30.8 (L) 06/25/2018 RDW 13.1 07/10/2012 PLTCOUNT 423 (H) 06/25/2018 NEUTROPCT 77.6 06/25/2018 LYMPHSPCT 10.9 06/25/2018 MONOSPCT 6.3 06/25/2018 EOSPCT 4.7 06/25/2018 BASOPHILPCT 0.5 06/25/2018 Lab Results Component Value Date GLUCOSE 159 (H) 06/25/2018 BUN 10 06/25/2018 CREATSERUM 0.68 (L) 06/25/2018 BCRATIO 14.7 06/25/2018 NA 139 06/25/2018 POTASSIUM 3.7 06/25/2018 CL 104 06/25/2018 CO2 29 06/25/2018 CA 7.9 (L) 06/25/2018 EGFR >90 06/25/2018 EGFRAF >90 06/25/2018 Imaging Imaging Results No results found for the last 48 hours. No results found for any visits on 06/25/18 (from the past 336 hour(s)). Assessment 77yr year old male who is his post bedside left scrotal incision and drainage on 06/26. Plan - Pain control PRN - Bowel regimen - Follow cultures - Wound care/ostomy consult placed for twice-daily dressing changes - Diabetic diet - DVT prophylaxis: SubQ heparin - Working on placement, recommended to patient that he spends time at [facility] [place] before going back to [facility]. Waiting on decision. Chriss Hayden DPM Foot and Ankle Surgery, PGY-1 Associated attestation - Kevin Enrique MD - 06/28/2018 10:57 [facility] Attending Attestation: I saw and examined the patient with the TRACS team.I was physically available throughout the resident evaluation of the pt and concur with his management as reflected in his note. Chriss Hayden DPM - 06/26/2018 6:42 AM CDT Surgery Resident Daily Progress Note Name: Ankur Banda Admit Date: 06/25/2018 5:51 PM CSN: [id number] CODE STATUS: DNR Interval Events/Subjective Patient seen this morning laying comfortably in bed. No acute distress. No overnight events. Objective Vitals: 06/25/18 1841 06/25/18 1900 06/25/18 2324 06/26/18 0454 BP: 147/64 146/78 132/66 Pulse: 74 76 71 Resp: 16 18 18 Temp: 98.7 F (37.1 C) 98.2 F (36.8 C) 98.6 F (37 C) SpO2: 98% 95% 98% Weight: 86.3 kg (190 lb 4.8 oz) Height: 172.7 cm (68") Physical Exam General: Alert and oriented. No acute distress. HEENT: Normocephalic and atraumatic. CV: regular rate, regular rhythm Lungs: Clear bilaterally, non-labored breathing Abdomen: Soft, non-tender, non-distended, stool in ostomy : Suprapubic catheter draining urine. Dressing/Incision: 1/4 inch packing gauze and reinforced with ABD pads. Extremities: Warm and perfused. Date 06/25/18699 - 06/26/1865806/26/18699 - 06/27/18 0659 Shift 7715-6625 8712-5821 24 Hour Total 6128-9210 6564-5102 24 Hour Total INTAKE Shift Total OUTPUT Stool Unmeasured Stool Occurrence 0 x 0 x Other 500 500 Other Output (mL) 500 500 Shift Total 500 500 NET -500 -500 Weight (kg) 86.3 86.3 86.3 86.3 86.3 86.3 Labs Lab Results Component Value Date WBC 10.8 06/25/2018 NUCRBC 0 06/25/2018 RBC 4.19 (L) 06/25/2018 HEMOGLOBIN 11.3 (L) 06/25/2018 HEMATOCRIT 36.7 (L) 06/25/2018 MCV 87.6 06/25/2018 MCH 27.0 06/25/2018 MCHC 30.8 (L) 06/25/2018 RDW 13.1 07/10/2012 PLTCOUNT 423 (H) 06/25/2018 NEUTROPCT 77.6 06/25/2018 LYMPHSPCT 10.9 06/25/2018 MONOSPCT 6.3 06/25/2018 EOSPCT 4.7 06/25/2018 BASOPHILPCT 0.5 06/25/2018 Lab Results Component Value Date GLUCOSE 159 (H) 06/25/2018 BUN 10 06/25/2018 CREATSERUM 0.68 (L) 06/25/2018 BCRATIO 14.7 06/25/2018 NA 139 06/25/2018 POTASSIUM 3.7 06/25/2018 CL 104 06/25/2018 CO2 29 06/25/2018 CA 7.9 (L) 06/25/2018 EGFR >90 06/25/2018 EGFRAF >90 06/25/2018 Imaging Imaging Results No results found for the last 48 hours. No results found for any visits on 06/25/18 (from the past 336 hour(s)). Assessment 77yr year old male who is his post bedside left scrotal incision and drainage on 06/26. Plan - Pain control PRN - Bowel regimen - Follow cultures - Wound care/ostomy consult placed for twice-daily dressing changes - Diabetic diet - DVT prophylaxis: SubQ heparin Chriss Hayden DPM Foot and Ankle Surgery, PGY-1 Associated attestation - Kevin Enrique MD - 06/29/2018 7:31 PM CDTTRACS Surgery Attending Attestation: I saw and examined the patient with the TRACS team.I was physically available throughout the resident evaluation of the pt and concur with his management as reflected in his note. documented in this encounter Plan of Treatment Health Maintenance Due Date Last Done Comments Ophthalmology Exam 1950 Zoster Vaccine (1 of 2 - 1990 RZV,Shingrix) [employer] Directive 2005 document Pneumococcal 65yr+ Low/Med Risk (2 03/22/2008 03/22/2007 of 2 - PCV13) Diabetic Foot Exam 09/30/2014 09/30/2013, 06/03/2013 Hemoglobin A1C Every 3 Months 02/14/2018 11/15/2017, 08/22/2017, 11/01/2016, Additional history exists Microalbumin 08/26/2018 08/26/2017, 08/07/2016, 01/22/2014, Additional history exists Lipid Screening 11/14/2018 11/14/2017, 08/22/2017, 05/10/2016, Additional history exists Creatinine 06/29/2019 06/28/2018, 06/27/2018, 06/25/2018, Additional history exists Tetanus Vaccine 05/11/2020 05/11/2010 Influenza Vaccine Completed 11/12/2017, 01/22/2014, 03/22/2007 documented as of this encounter Goals Goal Patient Goal Associated Recent Patient-Stated? Author Type Problems Progress DIET - DECREASE Diet No Delorme, SODA OR JUICE Maia Quiñones RN INTAKE DIET - HAVE 3 Diet No [place]orme, MEALS A DAY Maia Quiñones RN LIFESTYLE - Lifestyle No [place]orme, CHECK BLOOD Maia Quiñones RN SUGAR FASTING EVERY MORNING documented as of this encounter Procedures Procedure Name Priority Date/Time Associated Comments Diagnosis GLUCOSE BY METER, POCT Routine 06/28/2018 6:15 Results for this AM CDT procedure are in the results section. LAB ONLY-COMPLETE Routine 06/28/2018 6:07 Results for this BLOOD COUNT WITH AM CDT procedure are in DIFFERENTIAL the results section. COMPREHENSIVE Routine 06/28/2018 6:07 Results for this METABOLIC PANEL AM CDT procedure are in the results section. COMPLETE BLOOD COUNT Routine 06/28/2018 6:07 Results for this WITH DIFFERENTIAL AM CDT procedure are in the results section. LAB ONLY-COMPLETE LOI 06/27/2018 5:52 Results for this BLOOD COUNT WITH AM CDT procedure are in DIFFERENTIAL the results section. COMPREHENSIVE LOI 06/27/2018 5:52 Results for this METABOLIC PANEL AM CDT procedure are in the results section. COMPLETE BLOOD COUNT LOI 06/27/2018 5:52 Results for this WITH DIFFERENTIAL AM CDT procedure are in the results section. LAB ONLY-COMPLETE Routine 06/25/2018 11:43 Results for this BLOOD COUNT WITH PM CDT procedure are in DIFFERENTIAL the results section. MAGNESIUM Routine 06/25/2018 11:43 Results for this PM CDT procedure are in the results section. RENAL FUNCTION PANEL Routine 06/25/2018 11:43 Results for this PM CDT procedure are in the results section. COMPLETE BLOOD COUNT Routine 06/25/2018 11:43 Results for this WITH DIFFERENTIAL PM CDT procedure are in the results section. CULTURE BACTERIAL, Routine 06/25/2018 11:14 Results for this OTHER WITH GRAM STAIN PM CDT procedure are in the results section. documented in this encounter Results GLUCOSE BY METER, POCT (06/28/2018 6:15 AM CDT) Glucose POC 125 (H) 70 - 100 mg/dL [facility] POINT OF CARE TESTING Specimen Blood - Blood Performing Organization Address City/State/Zipcode Phone Number [facility] POINT OF [address], [place] [address] CARE TESTING LAB ONLY-COMPLETE BLOOD COUNT WITH DIFFERENTIAL (06/28/2018 6:07 AM CDT)Only the most recent of3 resultswithin the time period is included. WBC 9.6 4.0 - 11.0 K/uL [address] RBC 3.95 (L) 4.40 - 5.80 M/uL [address] Hemoglobin 10.7 (L) 13.5 - 17.5 g/dL [address] Hematocrit 34.2 (L) 40.0 - 50.0 % [address] MCV 86.6 80.0 - 98.[address] MCH 27.1 25.5 - 34.[address] MCHC 31.3 (L) 31.5 - 36.5 g/dL [address] RDW-CV 18.5 (H) 11.5 - 15.5 % [address] RDW-SD 58.5 (H) 35.5 - 50.[address] Platelet Count 432 (H) 140 - 400 K/uL [address] MPV 9.9 8.5 - 12.[address] Seg Neut Absolute 7.4 1.8 - 8.0 K/uL [address] Lymphocytes Absolute 1.1 0.8 - 4.1 K/uL [address] Monocytes Absolute 0.8 0.0 - 1.0 K/uL [address] Eosinophils Absolute 0.3 0.0 - 0.7 K/uL [address] Basophil Absolute 0.0 0.0 - 0.2 K/uL [address] Immature Granulocyte Absolute 0.03 0.00 - 0.06 K/uL [address] Neutrophils Abs. (Segs and Bands) 7,400 /uL [address] Neutrophils Percent 77.2 % [address] Lymphocytes Percent 11.2 % [address] Monocytes Percent 8.7 % [address] Immature Granulocyte Percent 0.3 % [address] Eosinophils Percent 2.6 % [address] Basophil Percent 0.3 % [address] Nucleated RBC 0 /[address] Specimen Blood - Blood Performing Organization Address City/State/Zipcode Phone Number [address] [place] [phone] COMPREHENSIVE METABOLIC PANEL (06/28/2018 6:07 AM CDT)Only the most recent of2 resultswithin the time period is included. Glucose 135 (H) 70 - 100 mg/dL [address] BUN 10 6 - 22 mg/dL [address] Creatinine 0.70 (L) 0.80 - 1.30 mg/dL [address] BUN/Creatinine Ratio 14.3 10.0 - 25.[address] Sodium 137 135 - 145 meq/L [address] Potassium 3.7 3.5 - 5.3 meq/L [address] Chloride 103 99 - 110 meq/L [address] CO2 30 (H) 20 - 29 meq/L [address] Anion Gap with K 8 6 - 20 meq/L [place] [address] [facility] Calcium 8.0 (L) 8.5 - 10.5 mg/dL [address] Protein Total 5.9 (L) 6.0 - 8.2 g/dL [address] Albumin 2.0 (L) 3.5 - 5.0 g/dL [address] Alkaline Phosphatase 60 30 - 150 U/L [address] AST - SGOT 24 0 - 35 U/L [address] ALT - SGPT 18 0 - 55 U/L [address] Bilirubin Total 0.3 0.2 - 1.2 mg/dL [address] Corrected Calcium 9.6 8.5 - 10.5 mg/dL [address] Age [address] eGFR Non- >90 >=60 mL/min/1.73m2 [address] eGFR >90 >=60 mL/min/1.73m2 [address] Specimen Blood - Blood Performing Organization Address [facility] Phone Number [address] [address] MAGNESIUM (06/25/2018 11:43 PM CDT) Magnesium 1.6 (L) 1.8 - 2.4 mg/dL [address] Specimen Blood - Blood Performing Organization Address [facility] Phone Number [address] [address] RENAL FUNCTION PANEL (06/25/2018 11:43 PM CDT) Glucose 159 (H) 70 - 100 mg/dL [address] BUN 10 6 - 22 mg/dL [address] Creatinine 0.68 (L) 0.80 - 1.30 mg/dL [address] BUN/Creatinine Ratio 14.7 10.0 - 25.[address] Sodium 139 135 - 145 meq/L [place] [address] [facility] Potassium 3.7 3.5 - 5.3 meq/L [address] Chloride 104 99 - 110 meq/L [place] [address] [facility] CO2 29 20 - 29 meq/L [address] Anion Gap with K 10 6 - 20 meq/L [address] Calcium 7.9 (L) 8.5 - 10.5 mg/dL [address] Phosphorus 2.5 2.5 - 4.5 mg/dL [address] Albumin 2.1 (L) 3.5 - 5.0 g/dL [address] Corrected Calcium 9.4 8.5 - 10.5 mg/dL [address] Age [address] eGFR Non- >90 >=60 mL/min/1.73m2 [address] eGFR >90 >=60 mL/min/1.73m2 [address] Specimen Blood - Blood Performing Organization Address [facility]/Zipcode Phone Number [address] [place] [phone] CULTURE BACTERIAL, OTHER WITH GRAM STAIN (06/25/2018 11:14 PM CDT) Culture Result Mixed microflora (!)Comment: No [facility] further identification or susceptibilities to follow. Gram Stain Few (1 to 9/LPF) WBC's [facility] Gram Stain Many (>25/LPF) RBC's [facility] Gram Stain No epithelial cells seen [facility] Gram Stain No organisms seen [facility] Specimen Abscess - Scrotum Performing Organization Address [facility] Phone Number [facility] [address] [place], [place] [phone] documented in this encounter Visit Diagnoses Diagnosis Perineal abscess - Primary Cellulitis and abscess of trunk Episode of recurrent major depressive disorder, unspecified depression episode severity (HCC) documented in this encounter Administered Medications Medication Order MAR Action Action Date Dose Rate Site acetaminophen (TYLENOL) tablet 650 mg 650 mg, Oral, Every four hours prn, Starting Sat06/25/18 at 2231, Until Discontinued, mild pain, If inadequate response in 60 minutes, may proceed to next choice option or if no other options, contact provider., bisacodyl (DULCOLAX) suppository 10 mg 10 mg, Rectal, One time a day prn, Starting Sat06/25/18 at 2231, Until Discontinued, constipation, Use SECOND for constipation. If patient cannot take oral medications, use first for constipation., docusate sodium (THEREVAC-SB MINI;ENEMEEZ MINI) 283 MG enema 1 enema 1 enema, Rectal, One time a day prn, Starting Sat06/25/18 at 2231, Until Discontinued, constipation, Use THIRD for constipation - if no BM 8 hours after ducolax suppository. If patient cannot take oral medications, use second for constipation., heparin (porcine) injection solution Given 06/30/2018 6:16 AM CDT 5,000 Units 5,000 Units 5,000 Units, Subcutaneous, Every eight hours, First dose on Sat06/25/18 at 2235, Until Discontinued, 1 mL Given 06/29/2018 9:23 PM CDT 5,000 Units Given 06/29/2018 2:28 PM CDT 5,000 Units HYDROcodone-acetaminophen (NORCO) 5-325 mg tablet 1 tablet 1 tablet, Oral, Every four hours prn, Starting Sat06/25/18 at 2232, Until Discontinued, moderate pain, Total dose of acetaminophen from all acetaminophen containing products should not exceed 4 grams (4000 mg) per day., melatonin tablet 3 mg 3 mg, Oral, Bedtime prn, Starting Sat06/25/18 at 2231, Until Discontinued, other (Specify), insomnia, If inadequate response in 60 minutes, may proceed to next choice option or, if no other options, contact provider., ondansetron (ZOFRAN ODT) dispersible tablet 4 mg 4 mg, Oral, Every four hours prn, Starting Sat06/25/18 at 2231, Until Discontinued, nausea, vomiting, Use FIRST. If ineffective after 30 minutes use ondansetron IV , ondansetron (ZOFRAN) injection solution 4 mg 4 mg, IV, Every four hours prn, Starting Sat06/25/18 at 2231, Until Discontinued, nausea, vomiting, 2 mL, Use SECOND. If ineffective after 30 minutes and ondansetron ODT used, call physician for alternative. If preference is to further dilute for IV administration: First draw up patient-specific dose, then dilute to 10 mL with 0.9% sodium chloride., senna-docusate sodium (SENOKOT-S;PERICOLACE) tablet 2 tablet 2 tablet, Oral, Two times a day prn, Starting Sat06/25/18 at 2231, Until Discontinued, constipation, Use FIRST for constipation unless patient cannot take oral medications., sertraline (ZOLOFT) tablet 25 mg Given 06/30/2018 9:51 AM CDT 25 mg 25 mg, Oral, DAILY, First dose on Letty 06/26/18 at 0900, Until Discontinued Given 06/29/2018 10:14 AM CDT 25 mg Given 06/28/2018 10:21 AM CDT 25 mg documented in this encounter
[2018-07-02] MEDS: Simethicone 80 MG Tab.Chew PO SCH ×3 (09:59→20:20)
[2018-07-02] MEDS: SERTRALINE 25 MG PO SCH (09:59)
[2018-07-03] MEDS: SERTRALINE 25 MG PO SCH (08:41)
[2018-07-03] MEDS: Simethicone 80 MG Tab.Chew PO SCH ×3 (08:41→21:40)
[2018-07-03] MEDS: Acetaminophen 325 MG Tab PO PRN ×2 (16:21→21:40)
[2018-07-04] MEDS: Simethicone 80 MG Tab.Chew PO SCH ×3 (08:21→21:54)
[2018-07-04] MEDS: SERTRALINE 25 MG PO SCH (08:24)
[2018-07-04] MEDS: Acetaminophen 325 MG Tab PO PRN (21:54)
[2018-07-05] MEDS: SERTRALINE 25 MG PO SCH (08:17)
[2018-07-05] MEDS: Simethicone 80 MG Tab.Chew PO SCH ×3 (08:17→21:18)
[2018-07-05] MEDS: Acetaminophen 325 MG Tab PO PRN (21:18)
[2018-07-06] MEDS: Simethicone 80 MG Tab.Chew PO SCH ×3 (08:25→20:21)
[2018-07-06] MEDS: SERTRALINE 25 MG PO SCH (08:25)
[2018-07-06] MEDS: Acetaminophen 325 MG Tab PO PRN (20:21)
[2018-07-07] MEDS: Acetaminophen 325 MG Tab PO PRN (09:35)
[2018-07-07] MEDS: SERTRALINE 25 MG PO SCH (09:35)
[2018-07-07] MEDS: Simethicone 80 MG Tab.Chew PO SCH ×3 (09:35→20:49)
[2018-07-08] MEDS: SERTRALINE 25 MG PO SCH (09:37)
[2018-07-08] MEDS: Simethicone 80 MG Tab.Chew PO SCH ×3 (09:38→20:51)
[2018-07-08] MEDS: Acetaminophen 325 MG Tab PO PRN (09:39)
[2018-07-09] MEDS: Simethicone 80 MG Tab.Chew PO SCH ×3 (09:31→20:19)
[2018-07-09] MEDS: SERTRALINE 25 MG PO SCH (09:31)
[2018-07-10] MEDS: Acetaminophen 325 MG Tab PO PRN (05:54)
[2018-07-10] MEDS: Simethicone 80 MG Tab.Chew PO SCH ×3 (10:33→21:00)
[2018-07-10] MEDS: SERTRALINE 25 MG PO SCH (10:34)
[2018-07-11] MEDS: Simethicone 80 MG Tab.Chew PO SCH ×3 (11:15→20:19)
[2018-07-11] MEDS: SERTRALINE 25 MG PO SCH (11:15)
[2018-07-12] MEDS: SERTRALINE 25 MG PO SCH (09:54)
[2018-07-12] MEDS: Simethicone 80 MG Tab.Chew PO SCH ×3 (09:54→20:22)
[2018-07-13] MEDS: Simethicone 80 MG Tab.Chew PO SCH ×3 (10:02→20:41)
[2018-07-13] MEDS: SERTRALINE 25 MG PO SCH (10:02)
[2018-07-14] MEDS: Acetaminophen 325 MG Tab PO PRN (09:44)
[2018-07-14] MEDS: Simethicone 80 MG Tab.Chew PO SCH ×3 (09:45→21:27)
[2018-07-14] MEDS: SERTRALINE 25 MG PO SCH (09:45)
[2018-07-15] MEDS: Acetaminophen 325 MG Tab PO PRN (09:55)
[2018-07-15] MEDS: Simethicone 80 MG Tab.Chew PO SCH ×3 (09:56→20:24)
[2018-07-15] MEDS: SERTRALINE 25 MG PO SCH (09:56)
[2018-07-16] MEDS: Simethicone 80 MG Tab.Chew PO SCH ×3 (09:29→22:59)
[2018-07-16] MEDS: SERTRALINE 25 MG PO SCH (09:29)
[2018-07-16] MEDS: Acetaminophen 325 MG Tab PO PRN ×2 (09:29→22:59)
[2018-07-17] MEDS: Simethicone 80 MG Tab.Chew PO SCH ×3 (09:38→21:46)
[2018-07-17] MEDS: SERTRALINE 25 MG PO SCH (09:39)
[2018-07-17] MEDS: Acetaminophen 325 MG Tab PO PRN (21:50)
[2018-07-18] MEDS: Simethicone 80 MG Tab.Chew PO SCH ×3 (09:18→20:07)
[2018-07-18] MEDS: SERTRALINE 25 MG PO SCH (09:18)
[2018-07-19] MEDS: SERTRALINE 25 MG PO SCH (09:59)
[2018-07-19] MEDS: Simethicone 80 MG Tab.Chew PO SCH ×3 (09:59→21:23)
[2018-07-20] MEDS: Simethicone 80 MG Tab.Chew PO SCH ×3 (07:55→19:09)
[2018-07-20] MEDS: SERTRALINE 25 MG PO SCH (07:55)
[2018-07-21] MEDS: Simethicone 80 MG Tab.Chew PO SCH ×3 (09:43→20:18)
[2018-07-21] MEDS: SERTRALINE 25 MG PO SCH (09:43)
[2018-07-22] MEDS: SERTRALINE 25 MG PO SCH (09:06)
[2018-07-22] MEDS: Simethicone 80 MG Tab.Chew PO SCH ×3 (09:07→20:17)
[2018-07-23] MEDS: Simethicone 80 MG Tab.Chew PO SCH ×3 (10:54→19:39)
[2018-07-23] MEDS: SERTRALINE 25 MG PO SCH (10:54)
[2018-07-24] MEDS: Simethicone 80 MG Tab.Chew PO SCH ×3 (09:23→19:41)
[2018-07-24] MEDS: SERTRALINE 25 MG PO SCH (09:23)
--- NOTE | 2018-07-24 14:47 | PCM.PN ---
- General Info Date of Service: 07/24/18 Subjective Update: Patient seen today for swing bed progress. Patient and nursing staff have noted progressive weakness over the past 1 month. He also feels that his appetite is decreasing and he is continuing to lose weight. He denies any pain in the scrotum or otherwise. He does still have some bloody drainage from the rectal tumor at times but this otherwise does not bother the patient. He feels his mood is stable. There are times when he wishes that he would have already but these are passing thoughts. He notes that he is ready for this , though. He is mainly wanting to focus on staying comfortable rather than on prolonging his life. He understands that returning home at this point would be extremely difficult on him and on his family and states he has made peace with being here at [facility] until he passes away. - Review of Systems General: Reports: No Symptoms HEENT: Reports: No Symptoms Pulmonary: Reports: No Symptoms Cardiovascular: Reports: No Symptoms Gastrointestinal: Reports: Decreased Appetite Genitourinary: Reports: No Symptoms Musculoskeletal: Reports: No Symptoms Skin: Reports: No Symptoms Neurological: Reports: No Symptoms Psychiatric: Reports: No Symptoms - Patient Data Vitals - Most Recent: Last Vital Signs Temp 36.8 C 07/21/18 06:58 Pulse 70 07/21/18 06:58 Resp 18 07/18/18 05:32 BP 103/48 L 07/21/18 06:58 Pulse Ox 96 07/21/18 06:58 Weight - Most Recent: 86.183 kg I&O - Last 24 Hours: Intake & Output 07/23/18 07/24/18 07/24/18 22:59 06:59 14:59 Intake Total 240 120 Output Total 200 500 Balance 40 -500 120 Med Orders - Current: Current Medications Acetaminophen (Tylenol) 650 mg PO Q4H PRN PRN Reason: Pain (mild 1-3) Last Admin: 07/17/18 21:50 Dose: 650 mg Sertraline HCl (Zoloft) 25 mg PO DAILY [facility] Last Admin: 07/24/18 09:23 Dose: 25 mg Simethicone (Simethicone) 80 mg PO TID [facility] Last Admin: 07/24/18 13:07 Dose: 80 mg - Exam General: Alert, Cooperative, No Acute Distress HEENT: Mucous Membr. Moist/[place] Neck: Supple, Trachea Midline, No Thyromegaly. No: Lymphadenopathy Lungs: Clear to Auscultation, Normal Respiratory Effort Cardiovascular: Regular Rate, Regular Rhythm, No Murmurs GI/Abdominal Exam: Normal Bowel Sounds, Soft, Non-Tender, No Organomegaly, No Distention, No Mass Extremities: Non-Tender, No Pedal Edema, Normal Capillary Refill Peripheral Pulses: 2+: Radial (L), Radial (R) Skin: Warm, Dry, Intact Neurological: No New Focal Deficit - Problem List & Annotations (1) Palliative care patient SNOMED Code(s): 614454610 Code(s): Z51.5 - ENCOUNTER FOR PALLIATIVE CARE Status: Acute Current Visit: Yes (2) Need for comfort care SNOMED Code(s): 767894839, 874446851 Code(s): HSQ9995 - Status: Acute Current Visit: Yes (3) Abscess of scrotum SNOMED Code(s): 06356692 Code(s): N49.2 - INFLAMMATORY DISORDERS OF SCROTUM Status: Acute Current Visit: No (4) Wound, open, scrotum or testes SNOMED Code(s): 192326822 Code(s): S31.30XA - UNSPECIFIED OPEN WOUND OF SCROTUM AND TESTES, INIT ENCNTR Status: Chronic Current Visit: No Qualifiers: (5) Colon cancer SNOMED Code(s): 380731382 Code(s): C18.9 - MALIGNANT NEOPLASM OF COLON, UNSPECIFIED Status: Chronic Current Visit: No Qualifiers: (6) Depressed mood SNOMED Code(s): 972856735 Code(s): F32.9 - MAJOR DEPRESSIVE DISORDER, SINGLE EPISODE, UNSPECIFIED Status: Chronic Current Visit: No - Problem List Review Problem List Initiated/Reviewed/Updated: Yes - My Orders Last 24 Hours: My Active Orders 07/24/18 00:02 Communication Order [RC] Q30D - Assessment Assessment:: 77 yo male on swing bed for wound cares/end of life cares. Has had progressive weakness, decreased appetite, etc over the past 1 month suggesting progression of his malignancy. No infection since his return this time. - Plan Plan:: 77 yo male who returns to swing bed for ongoing wound cares after he had been transferred to [place] again with concerns for a recurrent scrotal abscess. #1 Palliative Care Patient #2 Need for comfort care #3 Scrotal Abscess #4 Open wound of scrotum #5 Colon Cancer #6 Depressed mood - Continue BID dressing changes. - No current concerns for infection but will monitor closely. - Patient has been following outpatient with local general surgery and will see them again tomorrow. - In light of progressive symptoms, we did revisit his goals of care again today. He verbalizes that he is now ready to and understands that he will be in the hospital until this occurs. He would like to focus on comfort measures and would not like to focus on life prolonging measures. We did discuss that antibiotics and dressing changes can be considered comfort measures. This discussion will not change anything about what we are doing now but is just a way to make sure that everyone is on the same page. Unclear if involving hospice would make sense while he is here but will ask block and case maker to look into/discuss this. Code status will be changed to DNR/DNI/comfort measures. VTE prophylaxis is not indicated based on current goals of care.
[2018-07-25] MEDS: Simethicone 80 MG Tab.Chew PO SCH ×3 (09:26→19:52)
[2018-07-25] MEDS: SERTRALINE 25 MG PO SCH (09:26)
[2018-07-26] MEDS: Simethicone 80 MG Tab.Chew PO SCH ×3 (10:52→20:06)
[2018-07-26] MEDS: Acetaminophen 325 MG Tab PO PRN (10:52)
[2018-07-26] MEDS: SERTRALINE 25 MG PO SCH (10:52)
[2018-07-27] MEDS: SERTRALINE 25 MG PO SCH (08:56)
[2018-07-27] MEDS: Simethicone 80 MG Tab.Chew PO SCH ×3 (08:56→20:11)
[2018-07-28] MEDS: Simethicone 80 MG Tab.Chew PO SCH ×3 (07:56→20:02)
[2018-07-28] MEDS: SERTRALINE 25 MG PO SCH (07:56)
[2018-07-29] MEDS: SERTRALINE 25 MG PO SCH (08:49)
[2018-07-29] MEDS: Simethicone 80 MG Tab.Chew PO SCH ×3 (08:50→20:17)
[2018-07-30] MEDS: SERTRALINE 25 MG PO SCH (09:12)
[2018-07-30] MEDS: Simethicone 80 MG Tab.Chew PO SCH ×3 (09:13→20:00)
[2018-07-31] MEDS: Simethicone 80 MG Tab.Chew PO SCH ×3 (09:11→20:21)
[2018-07-31] MEDS: SERTRALINE 25 MG PO SCH (09:11)
[2018-08-01] MEDS: SERTRALINE 25 MG PO SCH (09:38)
[2018-08-01] MEDS: Simethicone 80 MG Tab.Chew PO SCH ×3 (09:38→21:00)
[2018-08-02] MEDS: SERTRALINE 25 MG PO SCH (09:10)
[2018-08-02] MEDS: Acetaminophen 325 MG Tab PO PRN (09:12)
[2018-08-02] MEDS: Simethicone 80 MG Tab.Chew PO SCH ×3 (09:13→20:11)
[2018-08-03] MEDS: Acetaminophen 325 MG Tab PO PRN (09:51)
[2018-08-03] MEDS: SERTRALINE 25 MG PO SCH (09:52)
[2018-08-03] MEDS: Simethicone 80 MG Tab.Chew PO SCH ×3 (09:52→19:45)
[2018-08-04] MEDS: Simethicone 80 MG Tab.Chew PO SCH ×3 (10:29→19:55)
[2018-08-04] MEDS: SERTRALINE 25 MG PO SCH (10:29)
[2018-08-05] MEDS: Simethicone 80 MG Tab.Chew PO SCH ×3 (09:24→20:40)
[2018-08-05] MEDS: SERTRALINE 25 MG PO SCH (09:24)
[2018-08-05] MEDS: Ciprofloxacin 500 MG Tab PO SCH ×2 (10:42→20:40)
[2018-08-06] MEDS: SERTRALINE 25 MG PO SCH (10:40)
[2018-08-06] MEDS: Ciprofloxacin 500 MG Tab PO SCH ×2 (10:40→20:19)
[2018-08-06] MEDS: Simethicone 80 MG Tab.Chew PO SCH ×3 (10:41→20:19)
[2018-08-07] MEDS: Ciprofloxacin 500 MG Tab PO SCH ×2 (09:18→20:16)
[2018-08-07] MEDS: Simethicone 80 MG Tab.Chew PO SCH ×3 (09:19→20:16)
[2018-08-07] MEDS: SERTRALINE 25 MG PO SCH (09:19)
[2018-08-08] MEDS: SERTRALINE 25 MG PO SCH (09:22)
[2018-08-08] MEDS: Simethicone 80 MG Tab.Chew PO SCH ×3 (09:22→20:10)
[2018-08-08] MEDS: Ciprofloxacin 500 MG Tab PO SCH ×2 (09:22→20:10)
[2018-08-09] MEDS: Simethicone 80 MG Tab.Chew PO SCH (08:11)
[2018-08-09] MEDS: Ciprofloxacin 500 MG Tab PO SCH ×2 (08:11→20:06)
[2018-08-09] MEDS: SERTRALINE 25 MG PO SCH (08:11)
[2018-08-10] MEDS: SERTRALINE 25 MG PO SCH (08:14)
[2018-08-10] MEDS: Ciprofloxacin 500 MG Tab PO SCH ×2 (08:14→20:12)
[2018-08-10] MEDS: Simethicone 80 MG Tab.Chew PO SCH (08:14)
[2018-08-11] MEDS: Ciprofloxacin 500 MG Tab PO SCH ×2 (09:34→19:35)
[2018-08-11] MEDS: SERTRALINE 25 MG PO SCH (09:34)
[2018-08-11] MEDS: Simethicone 80 MG Tab.Chew PO SCH (09:35)
[2018-08-12] MEDS: Ciprofloxacin 500 MG Tab PO SCH (08:54)
[2018-08-12] MEDS: SERTRALINE 25 MG PO SCH (08:55)
[2018-08-12] MEDS: Simethicone 80 MG Tab.Chew PO SCH (08:55)
[2018-08-12] MEDS: Simethicone 80 MG Tab.Chew PO PRN (19:54)
[2018-08-13] MEDS: SERTRALINE 25 MG PO SCH (10:55)
[2018-08-13] MEDS: Simethicone 80 MG Tab.Chew PO SCH (10:55)
[2018-08-14] MEDS: Simethicone 80 MG Tab.Chew PO SCH (11:04)
[2018-08-14] MEDS: SERTRALINE 25 MG PO SCH (11:04)
[2018-08-15] MEDS: Simethicone 80 MG Tab.Chew PO SCH (11:30)
[2018-08-15] MEDS: SERTRALINE 25 MG PO SCH (11:30)
[2018-08-15] MEDS: Simethicone 80 MG Tab.Chew PO PRN (21:38)
[2018-08-16] MEDS: SERTRALINE 25 MG PO SCH (07:49)
[2018-08-16] MEDS: Simethicone 80 MG Tab.Chew PO SCH (07:49)
[2018-08-16] MEDS: Simethicone 80 MG Tab.Chew PO PRN (20:14)
[2018-08-17] MEDS: Simethicone 80 MG Tab.Chew PO SCH (09:42)
[2018-08-17] MEDS: SERTRALINE 25 MG PO SCH (10:18)
[2018-08-18] MEDS: SERTRALINE 25 MG PO SCH (11:41)
[2018-08-18] MEDS: Simethicone 80 MG Tab.Chew PO SCH (11:41)
[2018-08-19] MEDS: SERTRALINE 25 MG PO SCH (09:54)
[2018-08-19] MEDS: Simethicone 80 MG Tab.Chew PO SCH (09:54)
[2018-08-20] MEDS: Simethicone 80 MG Tab.Chew PO SCH (08:37)
[2018-08-20] MEDS: SERTRALINE 25 MG PO SCH (08:37)
[2018-08-21] MEDS: SERTRALINE 25 MG PO SCH (09:31)
[2018-08-21] MEDS: Simethicone 80 MG Tab.Chew PO SCH (09:31)
--- NOTE | 2018-08-21 10:32 | PCM.PN ---
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 He denies any questions or concerns today. Nursing staff note that his scrotal swelling is "up and down" and that today seems to be worse again. He is also having more pain with palpation but denies any pain at rest. He states that his appetite has been stable but nursing staff note this is also declining. The patient admits that he is progressively getting weaker. - Review of Systems General: Reports: No Symptoms HEENT: Reports: No Symptoms Pulmonary: Reports: No Symptoms Cardiovascular: Reports: No Symptoms Gastrointestinal: Reports: No Symptoms Genitourinary: Reports: No Symptoms Musculoskeletal: Reports: No Symptoms Skin: Reports: No Symptoms Neurological: Reports: No Symptoms - Patient Data Vitals - Most Recent: Last Vital Signs Temp 37.7 C 08/15/18 12:23 Pulse 83 08/15/18 12:23 Resp 20 08/15/18 12:23 BP 119/69 08/15/18 12:23 Pulse Ox 99 08/15/18 12:23 Weight - Most Recent: 86.183 kg I&O - Last 24 Hours: Intake & Output 08/20/18 08/21/18 08/21/18 22:59 06:59 14:59 Intake Total 360 Output Total 325 300 Balance 35 -300 Med Orders - Current: Current Medications Acetaminophen (Tylenol) 650 mg PO Q4H PRN PRN Reason: Pain (mild 1-3) Last Admin: 08/03/18 09:51 Dose: 650 mg Ciprofloxacin (Ciprofloxacin Hcl) 500 mg PO BID [facility] Metronidazole (Flagyl) 500 mg PO TID [facility] Senna/Docusate Sodium (Senna Plus) 2 tab PO BID [facility] Last Admin: 08/21/18 09:30 Dose: 2 tab Sertraline HCl (Zoloft) 25 mg PO DAILY [facility] Last Admin: 08/21/18 09:31 Dose: 25 mg Simethicone (Simethicone) 80 mg PO DAILY [facility] Last Admin: 08/21/18 09:31 Dose: 80 mg Simethicone (Simethicone) 80 mg PO BID PRN PRN Reason: Gas Last Admin: 08/16/18 20:14 Dose: 80 mg Discontinued Medications Ciprofloxacin (Ciprofloxacin Hcl) 500 mg PO BID [facility] Stop: 08/12/18 09:31 Last Admin: 08/12/18 08:54 Dose: 500 mg Senna/Docusate Sodium (Senna Plus) 1 tab PO BID [facility] Last Admin: 08/17/18 09:43 Dose: 1 tab Simethicone (Simethicone) 80 mg PO TID [facility] Last Admin: 08/09/18 08:11 Dose: 80 mg - Exam General: Alert, Oriented, Cooperative, No Acute Distress HEENT: Pupils Equal, Pupils Reactive, Mucous Membr. Moist/[place] Neck: Supple, Trachea Midline, No Thyromegaly. No: Lymphadenopathy Lungs: Clear to Auscultation, Normal Respiratory Effort Cardiovascular: Regular Rate, Regular Rhythm, No Murmurs GI/Abdominal Exam: Normal Bowel Sounds, Soft, Non-Tender, No Distention (Male) Exam: Scrotal Swelling (generalized and with induration and erythema but without any palpable fluctuance or crepitus), Scrotum Tenderness (L), Scrotum Tenderness (R), Other (rectal mass more visible than previous with large amounts of serosanguinous discharge) Extremities: Non-Tender, No Pedal Edema, Normal Capillary Refill Peripheral Pulses: 2+: Radial (L), Radial (R) Skin: Warm, Dry Neurological: No New Focal Deficit Psy/Mental Status: Alert, Normal Affect, Normal Mood - Problem List & Annotations (1) Palliative care patient SNOMED Code(s): 936188496 Code(s): Z51.5 - ENCOUNTER FOR PALLIATIVE CARE Status: Acute Current Visit: Yes (2) Need for comfort care SNOMED Code(s): 680776923, 069221743 Code(s): MFH9395 - Status: Acute Current Visit: Yes (3) Abscess of scrotum SNOMED Code(s): 34747836 Code(s): N49.2 - INFLAMMATORY DISORDERS OF SCROTUM Status: Acute Current Visit: No (4) Wound, open, scrotum or testes SNOMED Code(s): 363399250 Code(s): S31.30XA - UNSPECIFIED OPEN WOUND OF SCROTUM AND TESTES, INIT ENCNTR Status: Chronic Current Visit: No Qualifiers: (5) Colon cancer SNOMED Code(s): 150936947 Code(s): C18.9 - MALIGNANT NEOPLASM OF COLON, UNSPECIFIED Status: Chronic Current Visit: No Qualifiers: (6) Depressed mood SNOMED Code(s): 416853413 Code(s): F32.9 - MAJOR DEPRESSIVE DISORDER, SINGLE EPISODE, UNSPECIFIED Status: Chronic Current Visit: No - Problem List Review Problem List Initiated/Reviewed/Updated: Yes - My Orders Last 24 Hours: My Active Orders 08/21/18 10:25 Dietary Supplements [RC] BIDMEALS 08/21/18 10:30 Ciprofloxacin [Ciprofloxacin HCl] 500 mg PO BID 08/21/18 12:00 metroNIDAZOLE [Flagyl] 500 mg PO TID 08/25/18 06:00 Communication Order [RC] ASDIRECTED - Assessment Assessment:: 77 yo male on swing bed for wound cares/end of life cares. Continues with progressive weakness and decreased appetite; rectal mass continues to grow. He also has more redness and swelling of the scrotum today. - Plan Plan:: 77 yo male who returns to swing bed for ongoing wound cares after he had been transferred to [place] again with concerns for a recurrent scrotal abscess. #1 Palliative Care Patient #2 Need for comfort care #3 Scrotal Abscess #4 Open wound of scrotum #5 Colon Cancer #6 Depressed mood - Continue BID dressing changes. - Patient with recurrence of infection but no definitive abscess today. Will start cipro and flagyl for a 2 week course. Will recheck the wound over the weekend and reassess need for further cares at that time. General surgery not here for outreach again until 09/08. - Patient will continue on swing bed status. Addition of hospice would be an additional cost for the patient and would not private branch exchange service adviser. Code status remains DNR/DNI/comfort measures. VTE prophylaxis is not indicated based on current goals of care.
[2018-08-21] MEDS: Ciprofloxacin 500 MG Tab PO SCH ×2 (13:37→20:08)
[2018-08-21] MEDS: metroNIDAZOLE 500 MG Tab PO SCH ×2 (13:38→20:08)
[2018-08-21] MEDS: Simethicone 80 MG Tab.Chew PO PRN (20:08)
[2018-08-22] MEDS: metroNIDAZOLE 500 MG Tab PO SCH ×3 (09:43→20:03)
[2018-08-22] MEDS: Ciprofloxacin 500 MG Tab PO SCH ×2 (09:43→20:03)
[2018-08-22] MEDS: SERTRALINE 25 MG PO SCH (09:43)
[2018-08-22] MEDS: Simethicone 80 MG Tab.Chew PO SCH (09:43)
[2018-08-22] MEDS: Simethicone 80 MG Tab.Chew PO PRN (20:03)
[2018-08-23] MEDS: metroNIDAZOLE 500 MG Tab PO SCH ×3 (08:22→21:14)
[2018-08-23] MEDS: Ciprofloxacin 500 MG Tab PO SCH ×2 (08:22→21:14)
[2018-08-23] MEDS: SERTRALINE 25 MG PO SCH (08:22)
[2018-08-23] MEDS: Simethicone 80 MG Tab.Chew PO SCH (08:22)
[2018-08-23] MEDS: Simethicone 80 MG Tab.Chew PO PRN (21:14)
--- NOTE | 2018-08-24 08:51 | PCM.SN ---
- Free Text/Narrative Note: Patient's scrotum re-examined yesterday. Erythema is improved but he is still has significant swelling, induration, and tenderness. No palpable fluctuance. Will continue antibiotics. General surgery is here tomorrow in the OR; nursing staff will see if they are able to take a look at this patient or not. If he cannot, then i will recheck the wound in the next 1-2 days.
[2018-08-24] MEDS: metroNIDAZOLE 500 MG Tab PO SCH ×3 (09:54→21:59)
[2018-08-24] MEDS: Ciprofloxacin 500 MG Tab PO SCH ×2 (09:55→21:59)
[2018-08-24] MEDS: Simethicone 80 MG Tab.Chew PO SCH (09:55)
[2018-08-24] MEDS: SERTRALINE 25 MG PO SCH (09:56)
[2018-08-24] MEDS: Acetaminophen 325 MG Tab PO PRN (12:57)
[2018-08-24] MEDS: Simethicone 80 MG Tab.Chew PO PRN (21:59)
[2018-08-25] MEDS: Acetaminophen 325 MG Tab PO PRN (09:09)
[2018-08-25] MEDS: metroNIDAZOLE 500 MG Tab PO SCH ×3 (09:09→22:52)
[2018-08-25] MEDS: Simethicone 80 MG Tab.Chew PO SCH (09:09)
[2018-08-25] MEDS: SERTRALINE 25 MG PO SCH (09:09)
[2018-08-25] MEDS: Ciprofloxacin 500 MG Tab PO SCH ×2 (09:10→22:52)
--- NOTE | 2018-08-25 12:18 | PCM.SN ---
- Free Text/Narrative Note: Asked by nursing to be present during suprapubic cath change given concerns for leaking around the catheter and abnormal sedimentary drainage coming from the catheter as well. He does have leakage of urine from around the catheter; difficulty and pain with removal of the catheter due to adherence to the bladder wall but nursing able to exchange this. Patient's scrotum also more red and swollen again today in comparison to Saturday. General surgery recommended holding off on packing to the left side due to the discomfort he is having. Discussed with the patient that I am not sure the antibiotics are doing much. He voices that he has really been considering stopping all antibiotic and wound cares. On further discussion, he does want to complete this course of antibiotics. He also wants to continue wound cares through this antibiotic course as well. He does not want to have further surgeries or procedures and does not wish to be transferred to [place] should the need arise. He is open to taking medication for pain, which he has previously declined. Will start oxycodone PRN. Will continue wound cares and antibiotics to complete a 2 week course per his wishes and will reassess at that time. He declines transfer to [place] as well as further surgical procedures/ interventions. Encouraged him to keep his family updated with his decisions. Nursing present for this conversation and aware of the plan as documented above.
[2018-08-25] MEDS: Simethicone 80 MG Tab.Chew PO PRN (22:51)
[2018-08-26] MEDS: Ciprofloxacin 500 MG Tab PO SCH ×2 (09:50→20:32)
[2018-08-26] MEDS: Simethicone 80 MG Tab.Chew PO SCH (09:50)
[2018-08-26] MEDS: Acetaminophen 325 MG Tab PO PRN (09:51)
[2018-08-26] MEDS: metroNIDAZOLE 500 MG Tab PO SCH ×3 (09:51→20:33)
[2018-08-26] MEDS: SERTRALINE 25 MG PO SCH (09:51)
[2018-08-27] MEDS: SERTRALINE 25 MG PO SCH (10:26)
[2018-08-27] MEDS: metroNIDAZOLE 500 MG Tab PO SCH ×3 (10:27→19:19)
[2018-08-27] MEDS: Simethicone 80 MG Tab.Chew PO SCH (10:27)
[2018-08-27] MEDS: Ciprofloxacin 500 MG Tab PO SCH ×2 (10:27→19:19)
[2018-08-28] MEDS: metroNIDAZOLE 500 MG Tab PO SCH ×3 (09:43→19:46)
[2018-08-28] MEDS: Ciprofloxacin 500 MG Tab PO SCH ×2 (09:43→19:46)
[2018-08-28] MEDS: Simethicone 80 MG Tab.Chew PO SCH (09:43)
[2018-08-28] MEDS: SERTRALINE 25 MG PO SCH (09:44)
[2018-08-29] MEDS: metroNIDAZOLE 500 MG Tab PO SCH ×3 (09:59→19:41)
[2018-08-29] MEDS: Ciprofloxacin 500 MG Tab PO SCH ×2 (09:59→19:40)
[2018-08-29] MEDS: Simethicone 80 MG Tab.Chew PO SCH (09:59)
[2018-08-29] MEDS: SERTRALINE 25 MG PO SCH (10:02)
[2018-08-30] MEDS: SERTRALINE 25 MG PO SCH (10:22)
[2018-08-30] MEDS: Ciprofloxacin 500 MG Tab PO SCH ×2 (10:22→19:25)
[2018-08-30] MEDS: Simethicone 80 MG Tab.Chew PO SCH (10:22)
[2018-08-30] MEDS: metroNIDAZOLE 500 MG Tab PO SCH ×3 (10:22→19:25)
[2018-08-31] MEDS: SERTRALINE 25 MG PO SCH (10:57)
[2018-08-31] MEDS: Simethicone 80 MG Tab.Chew PO SCH (10:57)
[2018-08-31] MEDS: metroNIDAZOLE 500 MG Tab PO SCH ×3 (11:13→20:20)
[2018-08-31] MEDS: Ciprofloxacin 500 MG Tab PO SCH ×2 (11:13→20:20)
[2018-09-01] MEDS: Simethicone 80 MG Tab.Chew PO SCH (08:10)
[2018-09-01] MEDS: SERTRALINE 25 MG PO SCH (08:10)
[2018-09-01] MEDS: Acetaminophen 325 MG Tab PO PRN (08:10)
[2018-09-01] MEDS: Ciprofloxacin 500 MG Tab PO SCH ×2 (08:10→19:59)
[2018-09-01] MEDS: metroNIDAZOLE 500 MG Tab PO SCH ×3 (08:10→19:59)
[2018-09-02] MEDS: Simethicone 80 MG Tab.Chew PO SCH (11:22)
[2018-09-02] MEDS: Ciprofloxacin 500 MG Tab PO SCH ×2 (11:23→19:11)
[2018-09-02] MEDS: SERTRALINE 25 MG PO SCH (11:23)
[2018-09-02] MEDS: metroNIDAZOLE 500 MG Tab PO SCH ×3 (11:23→19:11)
[2018-09-03] MEDS: Ciprofloxacin 500 MG Tab PO SCH ×2 (09:06→19:40)
[2018-09-03] MEDS: Simethicone 80 MG Tab.Chew PO SCH (09:06)
[2018-09-03] MEDS: metroNIDAZOLE 500 MG Tab PO SCH ×3 (09:06→19:40)
[2018-09-03] MEDS: SERTRALINE 25 MG PO SCH (09:06)
[2018-09-04] MEDS: SERTRALINE 25 MG PO SCH (08:56)
[2018-09-04] MEDS: metroNIDAZOLE 500 MG Tab PO SCH (08:56)
[2018-09-04] MEDS: Simethicone 80 MG Tab.Chew PO SCH (08:56)
[2018-09-05] MEDS: Simethicone 80 MG Tab.Chew PO SCH (09:13)
[2018-09-05] MEDS: SERTRALINE 25 MG PO SCH (09:13)
[2018-09-06] MEDS: Simethicone 80 MG Tab.Chew PO SCH (11:27)
[2018-09-06] MEDS: SERTRALINE 25 MG PO SCH (11:27)
[2018-09-07] MEDS: Acetaminophen 325 MG Tab PO PRN ×2 (06:31→22:11)
[2018-09-07] MEDS: OXYCODONE 5 MG PO PRN ×2 (06:32→22:12)
[2018-09-07] MEDS: SERTRALINE 25 MG PO SCH (08:57)
[2018-09-07] MEDS: Simethicone 80 MG Tab.Chew PO SCH (08:57)
[2018-09-08] MEDS: SERTRALINE 25 MG PO SCH (08:41)
[2018-09-08] MEDS: Simethicone 80 MG Tab.Chew PO SCH (08:41)
--- NOTE | 2018-09-08 14:00 | PCM.SN ---
- Free Text/Narrative Note: Checked in with patient and family after completion of this antibiotic course as had been discussed/planned upon. Patient notes that he would like to discontinue wound packing/cares at this time. He is not interested in further antibiotics nor surgical interventions. Per nursing, his tumor has grown quite a lot over the past few weeks, he is passing more bright red blood per rectum, and has not had much drainage from his suprapubic catheter over the past 48 hours. His wishes have been communicated with his family. Expected course discussed. Reviewed options for self pay swing bed, for swing bed with hospice care, and for return home on hospice. Upon discussion with he and his , we will go with option 1. He is encouraged to alert nursing for any symptoms that are not well controlled. His pain is currently well controlled on the oxycodone. Code status is also comfort measures only. We will discontinue all vital sign checks. Will also discontinue wound cares apart from needing to change the briefs from drainage. No other medications need to be discontinued. I will check in periodically throughout the week to note any changes in symptoms and urinary output. My support was offered to the patient and his family.
[2018-09-09] MEDS: Acetaminophen 325 MG Tab PO PRN (09:04)
[2018-09-09] MEDS: SERTRALINE 25 MG PO SCH (09:05)
[2018-09-09] MEDS: OXYCODONE 5 MG PO PRN (09:05)
[2018-09-09] MEDS: Simethicone 80 MG Tab.Chew PO SCH (09:05)
[2018-09-10] MEDS: Simethicone 80 MG Tab.Chew PO SCH (08:17)
[2018-09-10] MEDS: Acetaminophen 325 MG Tab PO PRN ×2 (08:17→19:56)
[2018-09-10] MEDS: SERTRALINE 25 MG PO SCH (08:17)
[2018-09-10] MEDS: OXYCODONE 5 MG PO PRN ×2 (08:17→19:56)
[2018-09-11] MEDS: OXYCODONE 5 MG PO PRN ×2 (07:58→20:47)
[2018-09-11] MEDS: SERTRALINE 25 MG PO SCH (07:59)
[2018-09-11] MEDS: Acetaminophen 325 MG Tab PO PRN ×2 (07:59→20:47)
[2018-09-11] MEDS: Simethicone 80 MG Tab.Chew PO SCH (07:59)
[2018-09-12] MEDS: OXYCODONE 5 MG PO PRN ×2 (08:32→21:02)
[2018-09-12] MEDS: Simethicone 80 MG Tab.Chew PO SCH (08:33)
[2018-09-12] MEDS: SERTRALINE 25 MG PO SCH (08:33)
[2018-09-12] MEDS: Acetaminophen 325 MG Tab PO PRN (21:04)
[2018-09-13] MEDS: OXYCODONE 5 MG PO PRN ×3 (06:50→20:05)
[2018-09-13] MEDS: Acetaminophen 325 MG Tab PO PRN ×2 (06:51→20:04)
[2018-09-13] MEDS: SERTRALINE 25 MG PO SCH (07:35)
[2018-09-13] MEDS: Simethicone 80 MG Tab.Chew PO SCH (07:38)
[2018-09-14] MEDS: OXYCODONE 5 MG PO PRN ×3 (06:02→22:05)
[2018-09-14] MEDS: Acetaminophen 325 MG Tab PO PRN ×3 (06:03→22:06)
[2018-09-14] MEDS: SERTRALINE 25 MG PO SCH (08:41)
[2018-09-14] MEDS: Simethicone 80 MG Tab.Chew PO SCH (08:41)
[2018-09-15] MEDS: Simethicone 80 MG Tab.Chew PO SCH (07:25)
[2018-09-15] MEDS: SERTRALINE 25 MG PO SCH (07:28)
[2018-09-15] MEDS: OXYCODONE 5 MG PO PRN ×4 (07:28→18:33)
[2018-09-15] MEDS: Acetaminophen 325 MG Tab PO PRN (07:29)
--- NOTE | 2018-09-15 12:00 | PCM.SN ---
- Free Text/Narrative Note: Patient with increased pain with turning for dressing changes, especially over the past 24 hours. Discussed option to do IV medications but he still prefers to avoid an IV if possible. Discussed option to try dilaudid instead and he is interested. Will schedule dilaudid BID to be given 30-60 minutes prior to dressing changes. Will continue the oxycodone PRN as well. No other symptoms of concerns. Family at bedside.
[2018-09-15] MEDS: HYDROMORPHONE 2 MG PO SCH (20:33)
[2018-09-16] MEDS: OXYCODONE 5 MG PO PRN ×5 (01:05→21:14)
[2018-09-16] MEDS: SERTRALINE 25 MG PO SCH (07:10)
[2018-09-16] MEDS: Simethicone 80 MG Tab.Chew PO SCH (07:10)
[2018-09-16] MEDS: HYDROMORPHONE 2 MG PO SCH ×2 (08:43→20:22)
--- NOTE | 2018-09-16 09:14 | PCM.PN ---
- General Info Date of Service: 09/16/18 Subjective Update: 77 yo male admitted to swing bed for end of life cares seen today for swing bed progress. Has had increased pain over the past few days. Dilaudid added last pm to be given prior to turning for wound cares; he is not sure if this worked better or not. Pain is mainly in his left shoulder. He denies any increased sleepiness from this in comparison to the oxycodone. He states that he is otherwise "the same." Has very little energy or strength; appetite is poor. He denies pain anywhere else besides in his shoulder. - Review of Systems General: Reports: No Symptoms HEENT: Reports: No Symptoms Pulmonary: Reports: No Symptoms Cardiovascular: Reports: No Symptoms Gastrointestinal: Reports: No Symptoms Genitourinary: Reports: No Symptoms Musculoskeletal: Reports: Shoulder Pain Skin: Reports: No Symptoms Neurological: Reports: No Symptoms - Patient Data Vitals - Most Recent: Last Vital Signs Temp 37.3 C 09/12/18 08:52 Pulse 91 09/12/18 08:52 Resp 12 09/12/18 08:52 BP 98/47 L 09/12/18 08:52 Pulse Ox 96 09/12/18 08:52 Weight - Most Recent: 46.901 kg I&O - Last 24 Hours: Intake & Output 09/15/18 09/16/18 09/16/18 22:59 06:59 14:59 Intake Total 300 240 Output Total 200 250 Balance 100 -10 Med Orders - Current: Current Medications Acetaminophen (Tylenol) 650 mg PO Q4H PRN PRN Reason: Pain (mild 1-3) Last Admin: 09/15/18 07:29 Dose: 650 mg Hydromorphone HCl (Dilaudid) 1 mg PO BID@0900,1999 [facility] Last Admin: 09/16/18 08:43 Dose: 1 mg Oxycodone HCl (Oxycodone) 5 mg PO Q4H PRN PRN Reason: Pain Last Admin: 09/16/18 07:10 Dose: 5 mg Senna/Docusate Sodium (Senna Plus) 1 tab PO DAILY [facility] Last Admin: 09/16/18 07:10 Dose: Not Given Sertraline HCl (Zoloft) 25 mg PO DAILY [facility] Last Admin: 09/16/18 07:10 Dose: 25 mg Simethicone (Simethicone) 80 mg PO DAILY [facility] Last Admin: 09/16/18 07:10 Dose: Not Given Simethicone (Simethicone) 80 mg PO BID PRN PRN Reason: Gas Last Admin: 08/25/18 22:51 Dose: 80 mg Discontinued Medications Ciprofloxacin (Ciprofloxacin Hcl) 500 mg PO BID [facility] Stop: 08/12/18 09:31 Last Admin: 08/12/18 08:54 Dose: 500 mg Ciprofloxacin (Ciprofloxacin Hcl) 500 mg PO BID [facility] Stop: 09/03/18 20:01 Last Admin: 09/03/18 19:40 Dose: 500 mg Metronidazole (Flagyl) 500 mg PO TID [facility] Stop: 09/04/18 08:01 Last Admin: 09/04/18 08:56 Dose: 500 mg Senna/Docusate Sodium (Senna Plus) 1 tab PO BID [facility] Last Admin: 08/17/18 09:43 Dose: 1 tab Senna/Docusate Sodium (Senna Plus) 2 tab PO BID [facility] Last Admin: 08/24/18 23:22 Dose: Not Given Simethicone (Simethicone) 80 mg PO TID [facility] Last Admin: 08/09/18 08:11 Dose: 80 mg - Exam General: Alert, Cooperative, No Acute Distress HEENT: Mucous Membr. Moist/[place] Neck: Supple, Trachea Midline, No Thyromegaly. No: Lymphadenopathy Lungs: Clear to Auscultation, Normal Respiratory Effort Cardiovascular: Regular Rate, Regular Rhythm, No Murmurs GI/Abdominal Exam: Normal Bowel Sounds, Soft, Non-Tender, No Organomegaly, No Distention, No Mass Extremities: Non-Tender, No Pedal Edema, Normal Capillary Refill Peripheral Pulses: 2+: Radial (L), Radial (R) Skin: Warm, Dry Neurological: No New Focal Deficit - Problem List & Annotations (1) Palliative care patient SNOMED Code(s): 657217398 Code(s): Z51.5 - ENCOUNTER FOR PALLIATIVE CARE Status: Acute Current Visit: Yes (2) Need for comfort care SNOMED Code(s): 152362709, 492976914 Code(s): TSM6229 - Status: Acute Current Visit: Yes (3) Abscess of scrotum SNOMED Code(s): 66300615 Code(s): N49.2 - INFLAMMATORY DISORDERS OF SCROTUM Status: Acute Current Visit: No (4) Wound, open, scrotum or testes SNOMED Code(s): 645832817 Code(s): S31.30XA - UNSPECIFIED OPEN WOUND OF SCROTUM AND TESTES, INIT ENCNTR Status: Chronic Current Visit: No Qualifiers: (5) Colon cancer SNOMED Code(s): 133005012 Code(s): C18.9 - MALIGNANT NEOPLASM OF COLON, UNSPECIFIED Status: Chronic Current Visit: No Qualifiers: (6) Depressed mood SNOMED Code(s): 228733013 Code(s): F32.9 - MAJOR DEPRESSIVE DISORDER, SINGLE EPISODE, UNSPECIFIED Status: Chronic Current Visit: No - Problem List Review Problem List Initiated/Reviewed/Updated: Yes - My Orders Last 24 Hours: My Active Orders 09/15/18 20:00 HYDROmorphone [Dilaudid] 1 mg PO BID@0900,199909/16/18 09:15 Menthol/Methyl Salicylate [Icy Hot Cream] 1 gm TOP BID - Assessment Assessment:: 77 yo male on swing bed for end of life cares. Cancer continues to progress. Main ongoing issue is shoulder pain. - Plan Plan:: 77 yo male who returns to swing bed for ongoing wound cares after he had been transferred to [place] again with concerns for a recurrent scrotal abscess. #1 Palliative Care Patient #2 Need for comfort care #3 Scrotal Abscess #4 Open wound of scrotum #5 Colon Cancer #6 Depressed mood - No longer doing dressing changes or antibiotics. - Gets turned once/day to change his pads given the significant amount of ongoing drainage. - Will try IcyHot and ice for his shoulder today. - Otherwise continue BID dilaudid and PRN oxycodone. - Anticipate that with his ongoing bleeding from his cancer as well as presumed chronic scrotal infection that he likely will pass away within the next 2 weeks. Family has consistently been at his bedside. - He is encouraged to notify us of any change in symptoms that need treatment. - Patient will continue on swing bed status until he passes away. Code status remains DNR/DNI/comfort measures. VTE prophylaxis is not indicated based on current goals of care.
[2018-09-16] MEDS: Menthol/Methyl Salicylate 85 GM Tube TOP SCH ×2 (10:01→20:22)
[2018-09-16] MEDS: Acetaminophen 325 MG Tab PO PRN (21:17)
[2018-09-17] MEDS: OXYCODONE 5 MG PO PRN ×3 (06:01→21:01)
[2018-09-17] MEDS: Acetaminophen 325 MG Tab PO PRN ×2 (06:02→21:00)
[2018-09-17] MEDS: HYDROMORPHONE 2 MG PO SCH ×2 (09:21→21:00)
[2018-09-17] MEDS: Simethicone 80 MG Tab.Chew PO SCH (09:24)
[2018-09-17] MEDS: SERTRALINE 25 MG PO SCH (09:24)
[2018-09-17] MEDS: Menthol/Methyl Salicylate 85 GM Tube TOP SCH ×2 (09:25→21:03)
[2018-09-18] MEDS: HYDROMORPHONE 2 MG PO SCH ×2 (09:20→21:00)
[2018-09-18] MEDS: SERTRALINE 25 MG PO SCH (09:21)
[2018-09-18] MEDS: OXYCODONE 5 MG PO PRN ×2 (09:21→14:17)
[2018-09-18] MEDS: Simethicone 80 MG Tab.Chew PO SCH (09:22)
[2018-09-18] MEDS: Menthol/Methyl Salicylate 85 GM Tube TOP SCH ×2 (10:02→21:00)
[2018-09-19] MEDS: OXYCODONE 5 MG PO PRN (05:20)
[2018-09-19] MEDS: Acetaminophen 325 MG Tab PO PRN ×3 (05:21→23:16)
[2018-09-19] MEDS: Simethicone 80 MG Tab.Chew PO SCH (08:18)
[2018-09-19] MEDS: HYDROMORPHONE 2 MG PO SCH ×2 (08:19→11:17)
[2018-09-19] MEDS: SERTRALINE 25 MG PO SCH (08:20)
[2018-09-19] MEDS: Menthol/Methyl Salicylate 85 GM Tube TOP SCH ×2 (08:28→19:55)
--- NOTE | 2018-09-19 10:44 | PCM.SN ---
- Free Text/Narrative Note: Pain is continuing to worsen. Will increase dilaudid dose to 2 mg and schedule at q6 hours.
[2018-09-19] MEDS ORDERED: HYDROmorphone 2 MG Tab PO SCH (12:00)
[2018-09-19] MEDS ORDERED: HYDROmorphone 2 MG Tab PO PRN ×2 (16:38→16:42)
--- NOTE | 2018-09-19 16:41 | PCM.SN ---
- Free Text/Narrative Note: Patient complaining of pain again starting around 4 pm. Pain had been better after higher dose of dilaudid this morning. Will change frequency to q4 hours to match what when his pain worsened again. Will also do dosing PRN q2 hours to give an option between the scheduled dosing of dilaudid. Patient is highly motivated to avoid IV therapies if possible but this will need to be revisited if this still does not control his pain. Will also add prednisone to treat any inflammatory component to his pain. Nursing will relay to family and will notify me if any concerns/questions regarding this plan.
[2018-09-19] MEDS: HYDROmorphone 2 MG Tab PO SCH ×3 (17:09→23:15)
[2018-09-19] MEDS: predniSONE 20 MG Tab PO SCH (18:11)
[2018-09-20] MEDS: HYDROmorphone 2 MG Tab PO SCH ×5 (04:46→20:00)
[2018-09-20] MEDS: predniSONE 20 MG Tab PO SCH (08:30)
[2018-09-20] MEDS: Simethicone 80 MG Tab.Chew PO SCH (08:30)
[2018-09-20] MEDS: SERTRALINE 25 MG PO SCH (08:32)
[2018-09-20] MEDS: Menthol/Methyl Salicylate 85 GM Tube TOP SCH ×2 (08:34→20:01)
[2018-09-20] MEDS ORDERED: predniSONE 20 MG Tab PO SCH (16:39)
[2018-09-20] MEDS: Acetaminophen 325 MG Tab PO PRN (20:01)
[2018-09-21] MEDS: HYDROmorphone 2 MG Tab PO SCH ×7 (00:17→23:45)
[2018-09-21] MEDS: Simethicone 80 MG Tab.Chew PO SCH (08:59)
[2018-09-21] MEDS: SERTRALINE 25 MG PO SCH (08:59)
[2018-09-21] MEDS: Menthol/Methyl Salicylate 85 GM Tube TOP SCH ×2 (09:00→20:36)
[2018-09-21] MEDS: predniSONE 20 MG Tab PO SCH (09:09)
[2018-09-21] MEDS: Acetaminophen 325 MG Tab PO PRN (20:37)
[2018-09-21] MEDS ORDERED: HYDROmorphone 2 MG Tab PO PRN (21:06)
[2018-09-22] MEDS: HYDROmorphone 2 MG Tab PO SCH ×6 (04:00→23:39)
[2018-09-22] MEDS: Simethicone 80 MG Tab.Chew PO SCH (09:26)
[2018-09-22] MEDS: SERTRALINE 25 MG PO SCH (09:26)
[2018-09-22] MEDS: Menthol/Methyl Salicylate 85 GM Tube TOP SCH ×2 (09:26→19:23)
[2018-09-22] MEDS: predniSONE 20 MG Tab PO SCH (09:26)
[2018-09-22] MEDS: Acetaminophen 325 MG Tab PO PRN (19:24)
[2018-09-23] MEDS: HYDROmorphone 2 MG Tab PO SCH ×2 (04:05→08:23)
[2018-09-23] MEDS: SERTRALINE 25 MG PO SCH (08:23)
[2018-09-23] MEDS: Menthol/Methyl Salicylate 85 GM Tube TOP SCH ×2 (08:24→19:56)
[2018-09-23] MEDS: predniSONE 20 MG Tab PO SCH (08:24)
[2018-09-23] MEDS: Simethicone 80 MG Tab.Chew PO SCH (08:25)
[2018-09-23] MEDS ORDERED: Ondansetron 4 MG Tab.DIS PO PRN (10:04)
[2018-09-23 12:12] VITALS: BP 93/48; PULSE 101
[2018-09-23] MEDS: HYDROMORPHONE 2 MG PO PRN (13:18)
[2018-09-23] MEDS ORDERED: LORazepam 0.5 MG Tab PO PRN (13:29)
--- NOTE | 2018-09-23 13:30 | PCM.SN ---
- Free Text/Narrative Note: Patient with nausea today; has had some dry heaves but no emesis. Zofran tried without relief. Discussed trial of lorazepam and he is in agreement. Orders entered. Will continue to manage symptoms as indicated.
[2018-09-23] MEDS: Acetaminophen 325 MG Tab PO PRN (19:55)
[2018-09-23] MEDS: LORAZEPAM 0.5 MG PO PRN (19:56)
[2018-09-23] MEDS: ONDANSETRON 4 MG PO PRN (22:04)
[2018-09-24] MEDS: LORAZEPAM 0.5 MG PO PRN ×3 (00:59→10:37)
[2018-09-24] MEDS: ONDANSETRON 4 MG PO PRN (04:30)
[2018-09-24] MEDS ORDERED: PREDNISONE PO SCH (08:00)
[2018-09-24] MEDS: Simethicone 80 MG Tab.Chew PO SCH (08:22)
[2018-09-24] MEDS: SERTRALINE 25 MG PO SCH (08:22)
[2018-09-24] MEDS: Menthol/Methyl Salicylate 85 GM Tube TOP SCH (08:23)
[2018-09-24] MEDS: HYDROMORPHONE 2 MG PO PRN (11:30)
[2018-09-24] MEDS ORDERED: ONDANSETRON 4 MG PO PRN (11:39)
--- NOTE | 2018-09-24 11:46 | PCM.SN ---
- Free Text/Narrative Note: S: Contacted by nurse early this morning that patient's family was concerned about his pain control and wondering if he should be on morphine. Visited with patient's , 2 daughters, and the patient this morning. He has had more difficulty with swallowing over the past couple of days also. His urine output is very low. His pain and nausea are controlled on the current medication regimen. O: Patient resting in bed but is uncomfortable with turning. A/P: #1 Comfort Cares - Will d/c all pills apart from ODT zofran and change everything over to liquid in the most concentrated forms available. - Discussed intent to continue with dilaudid as we know he is tolerating this and it is working well. However, we do not have access to the liquid formulation of this; therefore, he will be switched over to morphine. Pharmacy assisted with dose conversion related to the morphine and hopefully this will not result in much difficulty for him. - Lorazepam and prednisolone ordered as liquid as well. - Family will be updated of plan to transition to morphine due to availability of this. Otherwise, they were previously in agreement with the above plan. All questions answered. - Will also discuss with social work whether he can be transitioned to end of life cares swing bed hospitalization covered by Medicare as it is anticipated he is in the actively dying stages and will need multiple medication adjustments over the next 2-3 days.
[2018-09-24] MEDS: Morphine Oral Concentrate 20 MG/ML 30 ML Bottle SL SCH ×3 (13:13→21:12)
[2018-09-24] MEDS: Morphine Oral Concentrate 20 MG/ML 30 ML Bottle SL PRN ×2 (14:55→18:18)
[2018-09-25] MEDS: Morphine Oral Concentrate 20 MG/ML 30 ML Bottle SL SCH ×7 (00:53→23:03)
[2018-09-25] MEDS: Morphine Oral Concentrate 20 MG/ML 30 ML Bottle SL PRN (06:30)
[2018-09-25] MEDS: prednisoLONE Soln 15 MG/5 ML UD Cup PO SCH (11:49)
[2018-09-26] MEDS: Morphine Oral Concentrate 20 MG/ML 30 ML Bottle SL SCH ×5 (03:33→21:20)
[2018-09-26] MEDS: Morphine Oral Concentrate 20 MG/ML 30 ML Bottle SL PRN (10:55)
[2018-09-26] MEDS: prednisoLONE Soln 15 MG/5 ML UD Cup PO SCH (13:23)
[2018-09-26] MEDS: LORazepam Conc Solution 2 MG/ML 30 ML Bottle PO PRN ×3 (13:25→22:32)
[2018-09-26] MEDS: Hyoscyamine 0.125 MG/ML Bottle PO PRN (15:01)
[2018-09-27] MEDS: Morphine Oral Concentrate 20 MG/ML 30 ML Bottle SL SCH ×6 (00:05→22:02)
[2018-09-27] MEDS: Hyoscyamine 0.125 MG/ML Bottle PO PRN ×2 (00:08→22:18)
[2018-09-27] MEDS: LORazepam Conc Solution 2 MG/ML 30 ML Bottle PO PRN ×4 (04:16→22:17)
[2018-09-27] MEDS: Morphine Oral Concentrate 20 MG/ML 30 ML Bottle SL PRN ×4 (05:20→14:32)
[2018-09-28] MEDS: Morphine Oral Concentrate 20 MG/ML 30 ML Bottle SL SCH ×6 (01:05→21:32)
[2018-09-28] MEDS: LORazepam Conc Solution 2 MG/ML 30 ML Bottle PO PRN ×3 (02:52→21:39)
[2018-09-28] MEDS: Morphine Oral Concentrate 20 MG/ML 30 ML Bottle SL PRN ×2 (05:42→19:00)
[2018-09-28] MEDS: Hyoscyamine 0.125 MG/ML Bottle PO PRN ×2 (11:52→16:27)
[2018-09-29] MEDS: Morphine Oral Concentrate 20 MG/ML 30 ML Bottle SL SCH ×2 (00:46→05:25)
[2018-09-29] MEDS: LORazepam Conc Solution 2 MG/ML 30 ML Bottle PO PRN ×3 (01:34→06:53)
[2018-09-29] MEDS: Hyoscyamine 0.125 MG/ML Bottle PO PRN (05:25)
[2018-09-29] MEDS: Morphine Oral Concentrate 20 MG/ML 30 ML Bottle SL PRN (06:52)
[2018-09-29] MEDS ORDERED: Morphine 10 MG/ML SDV IM STA ×2 (06:58→07:21)
[2018-09-29] MEDS ORDERED: LORazepam 2 MG/ML SDV IM STA (07:20)
--- NOTE | 2018-09-29 11:15 | PCM.DCSUM1 ---
Discharge Summary - Hospital Course Brief History: Mr. Banda is a 77 yo male who was admitted to [facility] bed for further management related to chronic scrotal wounds, recurrent scrotal abscess , and rectal cancer. - Discharge Data Discharge Date: 09/29/18 Discharge Disposition: 20 Condition: - Discharge Diagnosis/Problem(s) (1) Palliative care patient SNOMED Code(s): 401566093 ICD Code: Z51.5 - ENCOUNTER FOR PALLIATIVE CARE Status: Acute (2) Need for comfort care SNOMED Code(s): 814937430, 809840077 ICD Code: [id number] - Status: Acute (3) Abscess of scrotum SNOMED Code(s): 59210312 ICD Code: N49.2 - INFLAMMATORY DISORDERS OF SCROTUM Status: Acute (4) Wound, open, scrotum or testes SNOMED Code(s): 719615723 ICD Code: S31.30XA - UNSPECIFIED OPEN WOUND OF SCROTUM AND TESTES, INIT ENCNTR Status: Chronic Qualifiers: (5) Colon cancer SNOMED Code(s): 645252301 ICD Code: C18.9 - MALIGNANT NEOPLASM OF COLON, UNSPECIFIED Status: Chronic Qualifiers: (6) Depressed mood SNOMED Code(s): 126705509 ICD Code: F32.9 - MAJOR DEPRESSIVE DISORDER, SINGLE EPISODE, UNSPECIFIED Status: Chronic - Patient Summary/Data Hospital Course: The patient was initially admitted for continuing wound cares related to his scrotal wounds. He did have recurrent infections that were treated with antibiotics. Discussions regarding goals of care were ongoing throughout his entire hospitalization. He eventually decided to transition toward comfort cares and all antibiotics and wound cares were discontinued. His symptoms were managed as they developed and he comfortably this morning with family at his bedside. - Discharge Plan Home Medications: Home Meds Sennosides/Docusate Sodium [Senna-Docusate Sodium Tablet] 2 tab PO DAILY [History] Sertraline [Zoloft] 25 mg PO DAILY 11/26/17 [History] Simethicone 80 mg PO TID tab.chew 02/28/18 [Rx] Aspirin 81 mg PO DAILY@0800 03/05/18 [History] - Discharge Summary/Plan Comment DC Time >30 min.: No - Patient Data Vitals - Most Recent: Last Vital Signs Temp 36.8 C 09/23/18 12:11 Pulse 101 H 09/23/18 12:11 Resp 16 09/23/18 12:11 BP 93/48 L 09/23/18 12:11 Pulse Ox 100 09/23/18 12:11 Weight - Most Recent: 46.901 kg I&O - Last 24 hours: Intake & Output 09/28/18 09/29/18 09/29/18 22:59 06:59 14:59 Intake Total 0 Balance 0 Med Orders - Current: Current Medications Discontinued Medications Acetaminophen (Tylenol) 650 mg PO Q4H PRN PRN Reason: Pain (mild 1-3) Last Admin: 09/23/18 19:55 Dose: 650 mg Ciprofloxacin (Ciprofloxacin Hcl) 500 mg PO BID [facility] Stop: 08/12/18 09:31 Last Admin: 08/12/18 08:54 Dose: 500 mg Ciprofloxacin (Ciprofloxacin Hcl) 500 mg PO BID [facility] Stop: 09/03/18 20:01 Last Admin: 09/03/18 19:40 Dose: 500 mg Hydromorphone HCl (Dilaudid) 1 mg PO BID@0900,1999 [facility] Last Admin: 09/19/18 08:19 Dose: 1 mg Hydromorphone HCl (Dilaudid) 2 mg PO Q6H [facility] Last Admin: 09/19/18 11:45 Dose: 2 mg Hydromorphone HCl (Dilaudid) 2 mg PO Q2H PRN PRN Reason: Breakthrough Pain Hydromorphone HCl (Dilaudid) 2 mg PO Q4H [facility] Last Admin: 09/23/18 08:23 Dose: 2 mg Hydromorphone HCl (Dilaudid) 2 mg PO Q4H PRN PRN Reason: Breakthrough Pain Hydromorphone HCl (Dilaudid) 2 mg PO Q2H PRN PRN Reason: Breakthrough Pain Hydromorphone HCl (Dilaudid) 2 mg PO Q4H PRN PRN Reason: Breakthrough Pain Last Admin: 09/24/18 11:30 Dose: 2 mg Hyoscyamine (Hyosyne) 0.125 mg PO Q4H PRN PRN Reason: excessive secretions Last Admin: 09/29/18 05:25 Dose: 1 ml Lorazepam (Ativan) 0.5 mg PO Q4H PRN PRN Reason: nausea/restlessness Stop: 09/23/18 16:20 Last Admin: 09/23/18 14:02 Dose: 0.5 mg Lorazepam (Ativan) 0.5 mg PO Q2H PRN PRN Reason: nausea, restlessness Last Admin: 09/29/18 06:53 Dose: 0.5 mg Lorazepam (Ativan) 1 mg IM ONETIME STA Stop: 09/29/18 07:21 Last Admin: 09/29/18 07:29 Dose: 1 mg Methyl Salicylate (Icy Hot Cream) 0 gm TOP BID [facility] Last Admin: 09/24/18 08:23 Dose: 1 applic Metronidazole (Flagyl) 500 mg PO TID [facility] Stop: 09/04/18 08:01 Last Admin: 09/04/18 08:56 Dose: 500 mg Morphine Sulfate (Morphine 20 Mg/Ml Soln) 5 mg SL Q4H [facility] Last Admin: 09/29/18 05:25 Dose: 5 mg Morphine Sulfate (Morphine 20 Mg/Ml Soln) 5 mg SL Q1H PRN PRN Reason: Breakthrough Pain Last Admin: 09/29/18 06:52 Dose: 5 mg Morphine Sulfate (Morphine) 5 mg IM ONETIME STA Stop: 09/29/18 06:59 Last Admin: 09/29/18 07:07 Dose: 5 mg Morphine Sulfate (Morphine) 5 mg IM ONETIME STA Stop: 09/29/18 07:22 Last Admin: 09/29/18 07:35 Dose: 5 mg Prednisone.20mg (Own (Supply)) 2 each PO DAILY [facility] Last Admin: 09/24/18 08:22 Dose: 2 each Own Supply: (Ondansetron. 4mg) 1 each PO Q6H PRN PRN Reason: Nausea/Vomiting Last Admin: 09/24/18 04:30 Dose: 1 each Hydromorphone. 2mg 1 each PO Q4H [facility] Last Admin: 09/24/18 08:21 Dose: 1 each Own Supply: (Lorazepam. 0.5mg) 1 each PO Q4H PRN PRN Reason: nausea or restlessness Last Admin: 09/24/18 10:37 Dose: 1 each Own Supply: (Ondansetron Odt. 4mg) 1 each PO Q4H PRN PRN Reason: Nausea/Vomiting Ondansetron HCl (Zofran Odt) 4 mg PO Q6H PRN PRN Reason: Nausea/Vomiting Stop: 09/23/18 16:19 Last Admin: 09/23/18 11:33 Dose: 4 mg Oxycodone HCl (Oxycodone) 5 mg PO Q4H PRN PRN Reason: Pain Last Admin: 09/19/18 05:20 Dose: 5 mg Prednisolone (Orapred 15 Mg/5ml Soln) 15 mg PO DAILY [facility] Last Admin: 09/26/18 13:23 Dose: Not Given Prednisone (Prednisone) 40 mg PO WITHBREAKFAST [facility] Prednisone (Prednisone) 40 mg PO WITHBREAKFAST [facility] Last Admin: 09/23/18 08:24 Dose: 40 mg Senna/Docusate Sodium (Senna Plus) 1 tab PO BID [facility] Last Admin: 08/17/18 09:43 Dose: 1 tab Senna/Docusate Sodium (Senna Plus) 2 tab PO BID [facility] Last Admin: 08/24/18 23:22 Dose: Not Given Senna/Docusate Sodium (Senna Plus) 1 tab PO DAILY [facility] Last Admin: 09/24/18 09:10 Dose: Not Given Sertraline HCl (Zoloft) 25 mg PO DAILY [facility] Last Admin: 09/24/18 08:22 Dose: 25 mg Simethicone (Simethicone) 80 mg PO TID [facility] Last Admin: 08/09/18 08:11 Dose: 80 mg Simethicone (Simethicone) 80 mg PO DAILY [facility] Last Admin: 09/24/18 08:22 Dose: 80 mg Simethicone (Simethicone) 80 mg PO BID PRN PRN Reason: Gas Last Admin: 08/25/18 22:51 Dose: 80 mg *Q Meaningful Use (DIS) - VTE *Q VTE Anticoagulation Contraindications: Med/TX Not Indicated/Need
== END 2018-09-29 07:50 | disposition expired | DRG 728 ==
LOC: VM.MS 12:00 → UNDODISIN 09-29 07:50
PROVIDERS: ADMIT Family Medicine; ATTEND Family Medicine
DX: N49.2 Inflammatory disorders of scrotum (principal); C20 Malignant neoplasm of rectum; F32.9 Major depressive disorder, single episode, unspecified; Z51.5 Encounter for palliative care; H91.90 Unspecified hearing loss, unspecified ear; E78.00 Pure hypercholesterolemia, unspecified; I10 Essential (primary) hypertension; N40.0 Benign prostatic hyperplasia without lower urinary tract symptoms; E11.42 Type 2 diabetes mellitus with diabetic polyneuropathy; Z86.73 Personal history of transient ischemic attack (TIA), and cerebral infarction without residual deficits; E66.9 Obesity, unspecified; Z85.46 Personal history of malignant neoplasm of prostate; R53.1 Weakness; Z93.6 Other artificial openings of urinary tract status; R52 Pain, unspecified; R11.0 Nausea; Z85.038 Personal history of other malignant neoplasm of large intestine
CPT/HCPCS: 51701; 51702; 51703; 97597; A9270-GY; J2060; J2270